=== PATIENT | female | born 1980 | race Caucasian/White ===

== ENCOUNTER 2023-02-13 17:31 | Observation (INO) | payer BC, SELFPAY ==
[2023-02-13] VITALS (21 sets, daily range): BP systolic 98–138; BP diastolic 65–83; PULSE 90–140; RESP 3–28; TEMP 36.8–39.3; O2SAT 91–99; BMI 30.4; BMI 30.8
--- NOTE | 2023-02-13 17:50 | ED_ITS ---
HPI - Nausea/Vomiting/Diarrhea General Chief complaint: Nausea/Vomiting/Diarrhea Stated complaint: HIGH FEVER Time Seen by Provider: 02/13/23 17:34 Source: patient Mode of arrival: Wheelchair Limitations: no limitations History of Present Illness HPI Narrative: 42-year-old female presents for nausea and vomiting. She's been sick for a few days. No hematemesis. She felt warm at home. She did not have a fever here. She has been able to eat or drink much. Related Data Home Medications Medication Instructions Recorded Confirmed bisoprolol 10 1 tab PO DAILY 02/13/23 02/13/23 mg-hydrochlorothiazide 6.25 mg tablet buspirone 7.5 mg tablet 7.5 mg PO DAILY 02/13/23 02/13/23 cyanocobalamin (vitamin B-12) 1,000 mcg IM .qmonth 02/13/23 02/13/23 1,000 mcg/mL injection solution desogestrel 0.15 mg-ethinyl 1 tab PO DAILY 02/13/23 02/13/23 estradiol 0.03 mg tablet (Apri) semaglutide 0.25 mg or 0.5 mg (2 0.5 mg subcut QWEEK 02/13/23 02/13/23 mg/3 mL) subcutaneous pen injector (Ozempic) sertraline 100 mg tablet 100 mg PO DAILY 02/13/23 02/13/23 Allergies Allergy/AdvReac Type Severity Reaction Status Date / Time codeine AdvReac Severe Hallucinati Verified 02/13/23 17:43 ng Review of Systems ROS Narrative A ten point review of systems is negative except as noted above. PFSH PFSH Social History Smoking status: Never smoker Exam Narrative Exam Narrative: Nurses note and vital signs reviewed and patient is not hypoxic. General: The patient appears comfortable Skin: Warm, dry, no pallor noted. There is no rash noted. Head: Normocephalic, atraumatic Eye: Normal conjunctiva, no drainage Ears, Nose, Mouth, and Throat: oral mucosa is eye. Nares patent. Cardiovascular: Regular Rate and Rhythm Respiratory: Patient is in no distress, no accessory muscle use, lungs are clear to auscultation, no wheezing, rales or rhonchi Back: non-tender GI: soft and nontender and nondistended. Musculoskeletal: The patient has no evidence of calf tenderness, no pitting edema, symmetrical pulses noted bilaterally Neurological: A&O, normal speech Psychiatric: Cooperative Constitutional Vital Signs, click to edit/add: Last Vital Signs Temp 101.4 F H 02/13/23 18:45 Pulse 127 H 02/13/23 18:40 Resp 18 02/13/23 18:40 BP 117/74 02/13/23 17:39 Pulse Ox 94 L 02/13/23 18:40 Course Vital Signs Vital signs: Vital Signs Temperature 99.7 F 02/13/23 17:39 Pulse Rate 140 H 02/13/23 17:39 Respiratory Rate 24 02/13/23 17:39 Blood Pressure 117/74 02/13/23 17:39 Temperature 101.4 F H 02/13/23 18:45 Pulse Rate 127 H 02/13/23 18:40 Respiratory Rate 18 02/13/23 18:40 Blood Pressure 117/74 02/13/23 17:39 Pulse Oximetry 94 L 02/13/23 18:40 MDM - Nausea/Vomiting/Diarrhea MDM Narrative Medical decision making narrative: Blood work is nonspecific and she's being given IV fluids and the patient is signed out to Dr. Skgags. Lab Data Attestation: I reviewed the patient's lab results. Labs: Lab Results 02/13/23 Range/Units 17:47 WBC 11.7 H (4.0-11.0) 10^3/uL RBC 5.30 (4.20-5.40) 10^6/uL Hgb 14.5 (12.0-16.0) g/dL Hct 45.1 (36.0-48.0) % MCV 85.1 (81.0-99.0) fL MCH 27.4 (26.7-34.0) pg MCHC 32.2 (29.9-35.2) g/dL RDW 13.4 (11.0-15.0) % Plt Count 355 (150-450) 10^3/uL MPV 9.3 L (9.5-13.5) fL Neut % (Auto) 81.4 H (43.0-75.0) % Lymph % (Auto) 7.2 L (20.5-60.0) % [place] % (Auto) 9.6 (1.7-12.0) % Eos % (Auto) 0.1 L (0.9-7.0) % Baso % (Auto) 0.5 (0.2-2.0) % Neut # (Auto) 9.5 H (1.4-6.5) 10^3/uL Lymph # (Auto) 0.8 L (1.2-3.8) 10^3/uL [place] # (Auto) 1.1 H (0.3-0.8) 10^3/uL Eos # (Auto) 0.0 (0.0-0.7) 10^3/uL Baso # (Auto) 0.1 (0.0-0.1) 10^3/uL Abs Immat Gran (auto) 0.14 H (0.00-0.03) 10^3/uL Imm/Tot Granulo (auto) 1.2 H (0.0-0.5) % Sodium 135 L (136-145) mmol/L Potassium 3.4 L (3.5-5.1) mmol/L Chloride 100 (98-107) mmol/L Carbon Dioxide 24.2 (21.0-32.0) mmol/L Anion Gap 14.2 BUN 10.0 (7.0-18.0) mg/dL Creatinine 0.85 (0.55-1.02) mg/dL Est GFR ( Amer) >60 (>=60) Est GFR (Non-Af Amer) >60 (>=60) BUN/Creatinine Ratio 11.8 Glucose 108 H (74-106) mg/dL Calcium 9.0 (8.5-10.1) mg/dL Serum HCG, Qual Negative (NEGATIVE) Discharge Plan Discharge Patient Disposition: Still a Patient
[2023-02-13] MEDS: 0.9 % SODIUM CHLORIDE 1,000 ML 1000 ML IV (17:59)
[2023-02-13 18:00] LABS: Hematocrit 45.1 % (36.0-48.0); Hemoglobin 14.5 g/dL (12.0-16.0); Mean Corpuscular HGB Conc 32.2 g/dL (29.9-35.2); Mean Corpuscular Hemoglobin 27.4 pg (26.7-34.0); Mean Corpuscular Volume 85.1 fL (81.0-99.0); Mean Platelet Volume 9.3 fL (9.5-13.5); Platelet Count 355 10^3/uL (150-450); Red Cell Distribution Width 13.4 % (11.0-15.0); White Blood Count 11.7 10^3/uL (4.0-11.0)
[2023-02-13 18:01] LABS: Basophils Absolute Auto 0.1 10^3/uL (0.0-0.1); Basophils Percent Auto 0.5 % (0.2-2.0); Eosinophils Percent Auto 0.1 % (0.9-7.0); Immature Granulocytes Abs Auto 0.14 10^3/uL (0.00-0.03); Immature Granulocytes Pct Auto 1.2 % (0.0-0.5); Lymphocytes Absolute Auto 0.8 10^3/uL (1.2-3.8); Lymphocytes Percent Auto 7.2 % (20.5-60.0); Monocytes Absolute Auto 1.1 10^3/uL (0.3-0.8); Monocytes Percent Auto 9.6 % (1.7-12.0); Neutrophils Absolute Auto 9.5 10^3/uL (1.4-6.5); Neutrophils Percent Auto 81.4 % (43.0-75.0)
[2023-02-13 18:09] LABS: Anion Gap 14.2; BUN Creatinine Ratio 11.8; Carbon Dioxide 24.2 mmol/L (21.0-32.0); Chloride 100 mmol/L (98-107); Estimated GFR (African America >60 (>=60); Estimated GFR (Non-African Ame >60 (>=60); Glucose 108 mg/dL (74-106); Potassium 3.4 mmol/L (3.5-5.1); Sodium 135 mmol/L (136-145)
[2023-02-13 18:10] LABS: HCG Qualitative NEGATIVE (NEGATIVE)
[2023-02-13] MEDS: ACETAMINOPHEN 325 MG TABLET 650 MG PO (19:09)
[2023-02-13] MEDS: IBUPROFEN 600 MG TABLET PO (19:09)
[2023-02-13] MEDS: 0.9 % SODIUM CHLORIDE 1,000 ML 999 ML IV ×2 (19:10→20:20)
--- NOTE | 2023-02-13 20:04 | CT_ITS ---
The [address] [address] Patient Name: ALFONSO WEBER MRN: [id number] date: 1980 Sex: F Assigned Patient Location: ER Current Patient Location: ER Accession/Order Number: [id number] Exam Date: 02/13/2023 20:30 Report Date: 02/13/2023 21:15 At the request of: BENSON REID Procedure: CT abdomen pelvis wo con EXAM: CT abdomen pelvis wo con TECHNIQUE: Axial CT images were obtained of the abdomen and pelvis without intravenous contrast. Sagittal and coronal reformatted images were also obtained. Dose reduction techniques were achieved by using automated exposure control and/or adjustment of mA and/or kV according to patient size and/or use of iterative reconstruction technique. HISTORY: right CVA pain COMPARISON: 12/26/2020 FINDINGS: Lower chest: Mild bibasilar patchy subsegmental atelectasis. Liver: The liver is homogeneous with normal contours and normal size. Gallbladder: Status post cholecystectomy. No significant biliary dilatation. Pancreas: The pancreas is homogeneous without evidence for mass lesion or inflammation. Spleen: The spleen is unremarkable without evidence for mass lesion. Adrenal glands: The adrenal glands are unremarkable Kidneys and bladder: 2 mm nonobstructing stone upper pole left kidney. Unremarkable unenhanced right kidney. The ureters demonstrate normal caliber. The urinary bladder is unremarkable. GI Tract: Stomach is unremarkable. Visualized small bowel is unremarkable without evidence for obstruction or active inflammation. The appendix is unremarkable.The visualized portion of the large bowel is unremarkable. Reproductive: Unremarkable Lymph nodes: No retroperitoneal or abdominal lymphadenopathy. Vascular: The aorta is not dilated. Peritoneum: No free intraperitoneal air or fluid. No acute inflammation. Abdominal wall: Unremarkable without acute abnormality. CT/CT abdomen pelvis wo con IMPRESSION: No acute abdominal pathology. No acute inflammatory process. No obstructing urinary tract stone. No evidence for bowel obstruction. Electronically authenticated by: ROLY SHETTY Date: 02/13/2023 21:15
[2023-02-13 20:28] LABS: Bilirubin Urine NEGATIVE (NEGATIVE); Blood Urine NEGATIVE (NEGATIVE); Clarity Urine CLEAR (CLEAR); Color Urine LT. YELLOW (YELLOW); Glucose Urine UA NEGATIVE (NEGATIVE); Ketones Urine 15 mg/dL (NEGATIVE); Leukocyte Esterase Urine NEGATIVE (NEGATIVE); Nitrite Urine NEGATIVE (NEGATIVE); Protein Urine NEGATIVE (NEG/TRACE)
[2023-02-13 20:31] LABS: Urine Microscopic Indicated NO
[2023-02-13 20:33] LABS: Lactate/Lactic Acid 0.7 mmol/L (0.4-2.0)
[2023-02-13 23:24] LABS: SARS-CoV-2 Ag NEGATIVE (NEGATIVE)
[2023-02-14] MEDS: ONDANSETRON PF 4 MG/2 ML VIAL IV ×2 (00:26→10:03)
--- NOTE | 2023-02-14 02:22 | P.PN_ITS ---
Progress Note: Subjective Subjective Interval history: The patient is a 42-year-old female with a history of hypertension who was in her usual state of health until 24 to 36 hours ago when she started developing intractable nausea and vomiting. Her and daughter has had similar complaints. She has not had any recent antibiotic use or any recent hospitalizations. She did not eat anything out of the ordinary or travel to any endemic areas. She presented to the ED and was noted to have a temperature of [address] abdomen was negative. She was given antiemetics and IV fluids and is being admitted for further evaluation. Exam Narrative Exam Narrative: General : Alert and oriented x3 HEENT : Extraocular movements intact, pupils equal round and reactive to light and accommodation Neck: Supple, no JVD Chest: Clear to auscultation bilaterally, no wheezes Heart: Regular rate and rhythm, S1 and S2 heard Abdomen: Soft nontender nondistended. Extremities: No clubbing cyanosis or edema Neurologically: Moving all 4 extremities Skin: No rashes Constitutional Vital Signs, click to edit/add: Last Vital Signs Temp 98.2 F 02/13/23 23:28 Pulse 95 H 02/13/23 23:28 Resp 22 02/13/23 23:28 BP 98/65 02/13/23 23:28 Pulse Ox 94 L 02/13/23 23:28 O2 Del Method Room Air 02/13/23 23:28 Progress Note: Objective Labs Labs: Short CBC 02/13/23 Range/Units 17:47 WBC 11.7 H (4.0-11.0) 10^3/uL Hgb 14.5 (12.0-16.0) g/dL Hct 45.1 (36.0-48.0) % Plt Count 355 (150-450) 10^3/uL BMP 02/13/23 17:47 Sodium 135 L Potassium 3.4 L Chloride 100 Carbon Dioxide 24.2 BUN 10.0 Creatinine 0.85 Glucose 108 H Calcium 9.0 Urine 02/13/23 Range/Units 20:22 Urine Color Lt. yellow (YELLOW) Urine Clarity Clear (CLEAR) Urine pH 7.0 (5.0-9.0) Ur Specific [place] 1.010 (1.005-1.025) Urine Protein Negative (NEG/TRACE) mg/dL Urine Glucose (UA) Negative (NEGATIVE) mg/dL Progress Note: A&P Assessment and Plan (1) Nausea and vomiting: Plan The patient is a 42-year-old female with above medical problems, presenting with intractable nausea and vomiting. Intractable nausea and vomiting -Provide supportive care -IV fluids -Antiemetics -PPI Diarrhea -Check C. difficile Hypokalemia -Add potassium and IV fluids DVT Prophylaxis -Lovenox, SCDs Medication review -Medication reconciliation form completed Goals of care -Full code Communications -Discussed with the emergency room physician -Discussed with the bedside nurse -Patient updated of plan of care, all questions answered to their satisfaction Disposition -Home when medically stable Telemedicine clause -As the provider of this telehealth evaluation, requested by the patient's evaluating physician, I attest that I introduced myself to the patient, provided my credentials and determined that telemedicine via a real-time, two-way interactive audio and video platform is an appropriate and effective means of providing this service. -I reviewed the patient's chart and had a discussion with the member of the patient's treatment team. -The patient and I mutually agreed with continuation of this evaluation via telemedicine. The patient consented for the telemedicine evaluation. -This virtual encounter was taken place from [place], [place]. The encounter was approximately 35 minutes. The nurse was present during the entire time of the encounter and was able to remove the stethoscope and appropriate directions. The patient was evaluated at [facility] Telemedicine Attestation Telemedicine Attestation I conducted this encounter from [] via secure live, [id number] video conference with the patient, located at [facility] with []. Prior to the interview, the risks and benefits of telemedicine were discussed with the patient and verbal consent was obtained.
[2023-02-14] MEDS: PANTOPRAZOLE SODIUM 40 MG VIAL IV (02:41)
[2023-02-14] MEDS: POTASSIUM CHLORIDE-0.45% NACL 1,000 ML 100 MEQ IV (02:41)
[2023-02-14] MEDS: ENOXAPARIN SODIUM 40 MG/0.4 ML SYRINGE SUBQ (02:41)
[2023-02-14] MEDS: ACETAMINOPHEN 325 MG TABLET 650 MG PO ×2 (02:47→08:53)
[2023-02-14 02:50] VITALS: TEMP 37.2
[2023-02-14 03:19] LABS: Adenovirus F 40/41 NOT DETECTED (NOT DETECTE); Astrovirus NOT DETECTED (NOT DETECTE); Campylobacter NOT DETECTED (NOT DETECTE); Cryptosporidium NOT DETECTED (NOT DETECTE); Cyclospora cayetanensis NOT DETECTED (NOT DETECTE); Entamoeba histolytica NOT DETECTED (NOT DETECTE); Enteroaggregative E.coli NOT DETECTED (NOT DETECTE); Enteropathogenic E.coli NOT DETECTED (NOT DETECTE); Enterotoxigenic E. coli NOT DETECTED (NOT DETECTE); Giardia lamblia NOT DETECTED (NOT DETECTE); Plesiomonas shigelloides NOT DETECTED (NOT DETECTE); Rotavirus A NOT DETECTED (NOT DETECTE); Salmonella NOT DETECTED (NOT DETECTE); Sapovirus NOT DETECTED (NOT DETECTE); Shiga-like toxin-producing E.C NOT DETECTED (NOT DETECTE); Shigella/Enteroinvasive E.coli NOT DETECTED (NOT DETECTE); Vibrio NOT DETECTED (NOT DETECTE); Vibrio cholerae NOT DETECTED (NOT DETECTE); Yersinia enterocolitica NOT DETECTED (NOT DETECTE)
[2023-02-14 05:12] LABS: Norovirus GI/GII DETECTED (NOT DETECTE)
[2023-02-14 06:00] VITALS: BP 112/65; PULSE 98; RESP 18; TEMP 37.2; O2SAT 99
[2023-02-14 07:53] VITALS: BP 131/74; PULSE 90; RESP 16; TEMP 37.4; O2SAT 91
[2023-02-14] MEDS: SERTRALINE HCL 100 MG TABLET PO (08:51)
[2023-02-14] MEDS: BUSPIRONE HCL 15 MG TABLET 7.5 MG PO (08:51)
--- NOTE | 2023-02-14 10:35 | PM.HP ---
H&P: HPI History of Present Illness Chief complaint: HIGH FEVER GASTRITIS Narrative: HPI and hospital course 42 y o female presents with 2-3 days hx of fever, intractable nausea, vomiting and inability to keep anything down. She had one or two episodes of watery diarrhea too. She reports her was also sick but he did not require an ED visit. Patient was admitted overnight for intractable nausea, vomiting, started on IV hydration, anti emetics and feels slightly better this am. She was able to keep liquid/water down. Reports her throat is hurting from acid refux and vomiting. She reports very mild abdominal discomfort. W/u revealed norovirus in her stool. No sig pathology/finding on CT abd/pelvis. Educated patient on her current pathology. Given her age, lack of risk factors, I feel that she will continue to improve. Asked patient to slowly advance her diet. Ensure adequate hydration with oral rehydration solutions. Stable for discharge on PO zofran, Protonix. Asked patient to hold Ozempic for 4 weeks phillip since its not for T2 DM and prescribed for weight loss. Admission Diagnosis Intractable nausea/vomiting due to viral gastroenteritis Obesity Viral gastroenteritis due to norovirus Depression with anxiety Discharge diagnosis as above Discharge status stable. Review of Systems ROS Status of ROS 10 or more systems reviewed and unremarkable except as noted in history and below [facility] Medical History (Updated 02/14/23 @ 10:42 by Shaikh Dedrick MD) Depression with anxiety ?F41.8 - Other specified anxiety disorders (ICD-10) Pulmonary embolism ?I26.99 - Other pulmonary embolism without acute cor pulmonale (ICD-10) Hypertension ?I10 - Essential (primary) hypertension (ICD-10) Pneumonia ?J18.9 - Pneumonia, unspecified organism (ICD-10) Cholelithiasis ?K80.20 - Calculus of gallbladder without cholecystitis without obstruction (ICD-10) Family History Mother Family history of diabetes mellitus Family history of hypertension Social History Within the past year, how often did you have a drink containing alcohol: never Within the past year, how often did you have six or more drinks on one occasion: never Score interpretation: A score less than 3 is consistent with normal alcohol consumption. Smoking status: Never smoker Second hand tobacco smoke exposure: No Non-prescribed substance use: denies use Previous occupational history: cost accountant Known occupational exposures/hazards: No Highest level of school completed/degree received: some college, no degree Do you want help with school or training: No Are you now , , , , never or living with a partner: In a typical week, how many times do you talk on the telephone with family, friends, or neighbors: 3 or more times per week How often do you get together with friends or relatives: 3 or more times per week How often do you attend oriental orthodox or protestant services: never Do you belong to any clubs or organizations such as oriental orthodox groups unions, [employer] or athletic groups, or school groups: no Total score: 2 Score interpretation: A score of greater than or equal to 2 indicates the lowest level of social isolation. Little interest or pleasure in doing things: not at all Feeling down, depressed, or hopeless: not at all Feel stressed/tense/nervous/anxious/difficulty sleeping: to some extent Life stressors: unknown source of stress Due to disability, difficulty making decisions: No Do you think of yourself as: straight/heterosexual Gender Identity: female Meds Home Medications and Allergies Home Medications Medication Instructions Recorded Confirmed Type bisoprolol 10 1 tab PO DAILY 02/13/23 02/13/23 History mg-hydrochlorothiazide 6.25 mg tablet buspirone 7.5 mg tablet 7.5 mg PO DAILY 02/13/23 02/13/23 History cyanocobalamin (vitamin B-12) 1,000 mcg IM .qmonth 02/13/23 02/13/23 History 1,000 mcg/mL injection solution desogestrel 0.15 mg-ethinyl 1 tab PO DAILY 02/13/23 02/13/23 History estradiol 0.03 mg tablet (Apri) semaglutide 0.25 mg or 0.5 mg (2 0.5 mg subcut QWEEK 02/13/23 02/13/23 History mg/3 mL) subcutaneous pen injector (Ozempic) sertraline 100 mg tablet 100 mg PO DAILY 02/13/23 02/13/23 History Allergies Allergy/AdvReac Type Severity Reaction Status Date / Time codeine AdvReac Severe Hallucinati Verified 02/13/23 17:43 ng Exam Constitutional Vital Signs, click to edit/add: Last Vital Signs Temp 99.3 F 02/14/23 07:53 Pulse 90 02/14/23 07:53 Resp 16 02/14/23 07:53 BP 131/74 02/14/23 07:53 Pulse Ox 91 L 02/14/23 07:53 O2 Del Method Room Air 02/14/23 07:53 Documenting provider has reviewed patient's vital signs: yes Common normals: no apparent distress and oriented x3 General appearance: cooperative Nutritional appearance: obese HENMT Common normals: normocephalic and head/scalp atraumatic Head and scalp: normocephalic and atraumatic Eye Common normals: conjunctivae normal and no scleral icterus Conjunctiva: conjunctiva(e) normal Respiratory Common normals: normal respiratory effort and clear to auscultation bilaterally Effort & inspection: able to speak in complete sentences Auscultation: clear to auscultation bilaterally Cardio Common normals: regular rate, S1 normal heart sound and S2 normal heart sound Rate: regular rate Heart sounds: S1 normal and S2 normal GI Common normals: Normal to inspection, nondistended, normoactive bowel sounds present, soft to palpation, non-tender and no hepatosplenomegaly Palpation: soft and no hepatosplenomegaly Extremity Common normals: no clubbing, cyanosis or edema Neuro Common normals: oriented x3, moves all extremities and no focal motor deficits Psych Common normals: mental status grossly normal, denies hallucinations, denies homicidal ideation and denies suicidal ideation Results Labs Labs: Short CBC 02/13/23 Range/Units 17:47 WBC 11.7 H (4.0-11.0) 10^3/uL Hgb 14.5 (12.0-16.0) g/dL Hct 45.1 (36.0-48.0) % Plt Count 355 (150-450) 10^3/uL BMP 02/13/23 17:47 Sodium 135 L Potassium 3.4 L Chloride 100 Carbon Dioxide 24.2 BUN 10.0 Creatinine 0.85 Glucose 108 H Calcium 9.0 Urine 02/13/23 Range/Units 20:22 Urine Color Lt. yellow (YELLOW) Urine Clarity Clear (CLEAR) Urine pH 7.0 (5.0-9.0) Ur Specific [place] 1.010 (1.005-1.025) Urine Protein Negative (NEG/TRACE) mg/dL Urine Glucose (UA) Negative (NEGATIVE) mg/dL Assessment and Plan Assessment and Plan (1) Viral gastroenteritis due to [place] virus: (2) Intractable nausea and vomiting: (3) Hypertension: Qualifiers: Hypertension type: primary hypertension Qualified Code(s): I10 - Essential (primary) hypertension (4) Depression with anxiety: Plan Symptoms improved with IV hydration and anti emetics. Toletated Liquid diet. Stable for discharge on zofran and prootnix. Patient educated on oral hydration, eating soft, easily digestible foods until she is better. Hold ozempic for 4 weeks.
--- NOTE | 2023-02-14 10:48 | CM.NOTE ---
Rounds made with Dr. Tse. Encouraged fluids and plan is for discharge today if able to keep fluids down. Currently no discharge needs.
[2023-02-14 12:03] LABS: SARS-CoV-2 NAA NOT DETECTED (NOT DETECTE)
== END 2023-02-14 12:39 | disposition home or self-care (01) ==
LOC: ER 19:52 → MS 23:20
PROVIDERS: Emergency Medicine; Internal Medicine; Admitting Provider Internal Medicine; Emergency Provider Internal Medicine; Visit Provider Internal Medicine
DX: A08.11 Acute gastroenteropathy due to Norwalk agent (principal); E66.9 Obesity, unspecified; F32.A Depression, unspecified; F41.9 Anxiety disorder, unspecified; E87.6 Hypokalemia; I10 Essential (primary) hypertension; R50.9 Fever, unspecified; Z68.30 Body mass index [BMI] 30.0-30.9, adult; Z20.822 Contact with and (suspected) exposure to COVID-19; Z79.899 Other long term (current) drug therapy; Z86.711 Personal history of pulmonary embolism; Z87.01 Personal history of pneumonia (recurrent)
CPT/HCPCS: 36415; 74176; 80048; 81003; 83605; 84703; 85025; 87493; 87507; 87635; 87811; 96361; 96365; 96366; 96372; 96375; 96376; 99285; G0378; Q3014

== ENCOUNTER 2023-12-09 10:28 | Outpatient (OUT) | payer BC, SELFPAY ==
--- NOTE | 2023-12-09 | XR_ITS ---
The [address] [address] Patient Name: ALFONSO WEBER MRN: [id number] date: 1980 Sex: F Assigned Patient Location: [facility] Current Patient Location: Accession/Order Number: [id number] Exam Date: 12/09/2023 10:38 Report Date: 12/11/2023 13:55 At the request of: REJI FLORES Procedure: XR chest 2V EXAMINATION: XR chest 2V HISTORY: cough, sob COMPARISON: 11/30/2020 TECHNIQUE: PA and lateral FINDINGS: LUNGS: The right lung is clear. Mild left basilar infiltrate obscuring the lateral left hemidiaphragm, stable from 2020 likely representing chronic scarring VASCULATURE: No increased pulmonary vasculature. PLEURA: No pneumothorax, effusion, or pleural thickening. CARDIAC: No cardiomegaly or cardiac silhouette abnormality. MEDIASTINUM: No visible mass or adenopathy. BONES: No fracture or visible bone lesion. OTHER: Negative. XR/XR chest 2V IMPRESSION: No acute cardiopulmonary process Electronically authenticated by: DONNA HYMAN Date: 12/11/2023 13:55
--- OUTSIDE RECORDS SUMMARY | 2023-12-09 10:33 | XMS_ITS | CCD ---
Author Organization [facility] Team Providers Care Senior Supplier Quality Engineer Name Role Phone SON, DR RAKESH Mitchell Consulting Unavailable CLINE, DR RAKESH Mitchell Attending Unavailable CLINE, DR RAKESH Mitchell Primary Care Unavailable CLINE, DR RAKESH Mitchell Admitting Unavailable WEST, DR DONNA Driscoll Consulting Unavailable CLINE, DR RAKESH Mitchell Attending Unavailable CLINE, DR RAKESH Mitchell Primary Care Unavailable CLINE, DR RAKESH Mitchell Admitting Unavailable CLINE, DR RAKESH Mitchell Consulting Unavailable CLINE, DR RAKESH Mitchell Primary Care Unavailable CLINE, DR RAKESH Mitchell Attending Unavailable CLINE, DR RAKESH Mitchell Admitting Unavailable CLINE, DR RAKESH Mitchell Consulting Unavailable WEST, DR DONNA Driscoll Consulting Unavailable CLINE, DR RAKESH Mitchell Attending Unavailable CLINE, DR RAKESH Mitchell Admitting Unavailable CLINE, DR RAKESH Mitchell Primary Care Unavailable CLINE, DR RAKESH Mitchell Consulting Unavailable CLINE, DR RAKESH Mitchell Consulting Unavailable CLINE, DR RAKESH Mitchell Attending Unavailable CLINE, DR RAKESH Mitchell Admitting Unavailable CLINE, DR RAKESH Mitchell Primary Care Unavailable [place] Consulting Unavailable CLINE, DR RAKESH Mitchell Attending Unavailable CLINE, DR RAKESH Mitchell Admitting Unavailable WESTON, DR FELIPE Storey Consulting Unavailable SON, DR RAKESH Mitchell Primary Care Unavailable CLINE, DR RAKESH Mitchell Consulting Unavailable WIECEK, DR MARIMAR Stacy Consulting Unavailable ZIEBER, DR LEIDY Storey Consulting Unavailable AGUBOSIM, ANTONIO Consulting Unavailable Said, El Consulting Unavailable DORKONICOLE LEONARDO Consulting Unavailable SNO, DR RAKESH Mitchell Consulting Unavailable SON, DR RAKESH Mitchell Attending Unavailable CLINE, DR RAKESH Mitchell Admitting Unavailable CLINE, DR RAKESH Mitchell Primary Care Unavailable WEST, DR DONNA Driscoll Consulting Unavailable CLINE, DR RAKESH Mitchell Consulting Unavailable SON, DR RAKESH Mitchell Attending Unavailable CLINE, DR RAKESH Mitchell Admitting Unavailable SON, DR RAKESH Mitchell Primary Care Unavailable Melissa Lewis Primary Care Physician [phone] Debbie, TOBIN Adhikari Attending Unavailable Debbie, BEET WORKER Melissa L Admitting Unavailable Debbie, BEET WORKER Melissa L Admitting Unavailable Debbie, BEET WORKER Melissa L Attending Unavailable Letitia Morrissey Attending Unavailable Debbie, BEET WORKER Melissa L Referring Unavailable STEPHANIE DEL CID Admitting Unavailabl e DEL CIDSTEPHANIE Goel Attending Unavailabl e Debbie, BEET WORKER Melissa L Admitting Unavailable Debbie, BEET WORKER Melissa L Attending Unavailable Letitia Morrissey Admitting Unavailable Demboscuauhtemoc, Letitia Acosta Attending Unavailable Debbie, BEET WORKER Melissa L Referring Unavailable Hector, MS, RDN, LD Ratna K Attending Unav ailable Ghanshyam, Letitia Acosta Attending Unavailable STEPHANIE DEL CID Attending Unavailabl e Debbie, BEET WORKER Melissa L Attending Unavailable Debbie, BEET WORKER Melissa L Attending Unavailable Antonio Giles Attending Unavailable Debbie, BEET WORKER Melissa L Attending Unavailable Debbie, BEET WORKER Melissa L Attending Unavailable Debbie, BEET WORKER Melissa L Attending Unavailable Debbie, BEET WORKER Melissa L Attending Unavailable Debbie, BEET WORKER Melissa L Attending Unavailable Debbie, BEET WORKER Melissa L Attending Unavailable Debbie, BEET WORKER Melissa L Attending Unavailable Riki Villa Attending Unavailable Lorraine Benavides Attending Unavailable Debbie, BEET WORKER Melissa L Attending Unavailable Riki Villa Admitting Unavailable Riki Villa Attending Unavailable Debbie, BEET WORKER Melissa L Admitting Unavailable Debbie, BEET WORKER Melissa L Attending Unavailable Allergies Allergy Classification Reported Allergen(s) Allergy Type Date of Onset Reaction(s) Facility (13 sources) Acetaminophen / Codeine; Translations: [acetaminophen-c odeine] Drug Allergy Hallucinations (finding) [facility] (2 sources) Codeine / guaiFENesin; Translations: [Cheracol with Codeine] Drug Allergy [facility] Repository (2 sources) No Known Medication Allergies; Translations: [No Known Medication Allergies] Propensity to adverse reactions (disorder) [facility] Repository Medications Current Medications Medication Drug Class(es) Dates Sig (Normalized) Sig (Original) 0.25 MG, 0.5 MG Dose 3 ML semaglutide 0.68 MG/ML Pen Injector [Ozempic] (7 sources) Start: 09-23-2024 Ozempic 2 mg/3 mL (0.25 mg or 0.5 mg dose) subcutaneous solution 0.25 mg, SubCutaneous, qWeek, # 4 EA, Refills(s) 1, Pharmacy: [facility] [id number] [facility], 160, cm, 11/10/23 14:00:00 EDT, Height/Length Dosing, 79.1, kg, 11/10/23 14:00:00 EDT, Weight Dosing Start Date: 11/13/23 Status: Ordered Start: 01-18-2023 inject 0.5 mg by sub cutaneous injection every week Ozempic 2 mg/3 mL (0.25 mg or 0.5 mg dose) subcutaneous solution 0.5 mg, SubCutaneous, qWeek, # 1 EA, Refills(s) 1, Pharmacy: [facility] [id number] [facility], 160, cm, 01/18/23 17:10:00 EST, Height/Length Dosing, 92.2, kg, 01/18/23 17:10:00 EST, Weight Dosing Start Date: 01/18/23 Status: Ordered Start: 12-09-2022 Ozempic 2 mg/3 mL (0.25 mg or 0.5 mg dose) subcutaneous solution 0.25 mg, SubCutaneous, qWeek, # 1 EA, Refills(s) 1, Pharmacy: [facility] [id number] [facility], 160, cm, 12/09/22 14:00:00 EDT, Height/Length Dosing, 76, kg, 12/09/22 14:00:00 EDT, Weight Dosing Start Date: 12/09/22 Status: Ordered Albuterol (Eqv-ProAir HFA) 90 mcg/inh inhalation aerosol (1 source) Start: 11-29-2023 take 2 puff(s) by inhalation every six hours Albuterol (Eqv-ProAir HFA) 90 mcg/inh inhalation aerosol 2 puff(s), Inhalation, q6hr, 8.5 gm, Refill(s) 0, [id number], 160, cm, 11/21/23 17:41:00 EDT, Height/Length Dosing, 79, kg, 11/21/23 17:41:00 EDT, Weight Dosing Start Date: 11/29/23 Status: Ordered azithromycin 250 mg oral tablet (2 sources) Macrolide Antimicrobial Start: 11-29-2023 End: 12-04-2023 azithromycin 250 mg Tab = 1 packet(s), Oral, As Directed, as directed on package labeling, X 5 day(s), # 6 tab(s), Refills(s) 0, Pharmacy: [facility] [id number] [facility], 160, cm, 11/21/23 17:41:00 EDT, Height/Length Dosing, 79, kg, 11/21/23 17:41:00 EDT, Weight Dosing Start Date: 11/29/23 Stop Date: 12/04/23 Status: Ordered Start: 02-15-2023 End: 02-20-2023 azithromycin 250 mg Tab = 1 packet(s), Oral, As Directed, as directed on package labeling, X 5 day(s), # 6 tab(s), Refills(s) 0, Pharmacy: [facility] [id number] [facility], 160, cm, 02/15/23 17:07:00 EST, Height/Length Dosing, 75, kg, 02/15/23 17:07:00 EST, Weight Dosing Start Date: 02/15/23 Stop Date: 02/20/23 Status: Ordered benzonatate 100 mg oral capsule (2 sources) Non-narcotic Antitussive Start: 11-21-2023 End: 11-28-2023 take 1 capsule by mouth three times daily Tessalon 100 mg Cap 100 mg = 1 cap(s), Oral, TID, X 7 day(s), # 21 cap(s), Refills(s) 0, Pharmacy: [facility] [id number] [facility], 160, cm, 11/21/23 17:41:00 EDT, Height/Length Dosing, 79, kg, 11/21/23 17:41:00 EDT, Weight Dosing Start Date: 11/21/23 Stop Date: 11/28/23 Status: Ordered bisoprolol fumarate 10 mg / hydroCHLOROthiazide 6.25 mg oral tablet (9 sources) Thiazide Diuretic, beta-Adrenergic Rod Start: 07-26-2023 take 1 tablet by mouth once daily bisoprolol-hydroc hlorothiazide 10 mg-6.25 mg Tab 1 tab(s), Oral, Daily, 90 tab(s), Refill(s) 3, [facility] [id number] [facility], 160, cm, 06/14/23 17:02:00 EDT, Height/Length Dosing, 76.2, kg, 06/14/23 17:02:00 EDT, Weight Dosing Start Date: 07/26/23 Status: Ordered Start: 10-21-2022 take 1 tablet by andrez th once daily in the morning bisoprolol-hydrochlorothiazide 10 mg-6.2 5 mg Tab Refill(s) 0, 90 EA, TAKE 1 TABLET BY MOUTH EVERY DAY IN THE MORNING Start Date: 10/21/22 Status: Ordered Start: 05-23-2022 End: 08-21-2022 take 1 tablet by mouth once daily bisoprolol-hydrochlorothiazide 10 mg-6.2 5 mg Tab 1 tab(s), Oral, Daily for 90 day(s), 90 tab(s), Refill(s) 0 Start Date: 05/23/22 Stop Date: 08/21/22 Status: Ordered Blood glucose monitor (8 sources) Start: 10-21-2022 Blood glucose monitor Blood glucose monitor, See Instructions, 1 EA, 0, Check blood sugar 3 times per day, [facility] [id number] [facility], Supply, 160, cm, 10/21/22 13:55:00 EDT, Height/Length Dosing, 73.7, kg, 10/21/22 13:55:00 EDT, Weight Dosing Start Date: 10/21/22 Status: Ordered busPIRone hydrochloride 7.5 mg oral tablet (8 sources) Start: 10-17-2022 take 1 tablet by mouth once daily as needed for anxiety busPIRone 7.5 mg oral tablet 7.5 mg = 1 tab(s), Oral, Daily, PRN Anxiety, as needed for anxiety, # 90 tab(s), Refills(s) 3, Pharmacy: [facility] [id number], 160, cm, 09/23/22 14:47:00 EDT, Height/Length Dosing, 74.5, kg, 09/23/22 14:47:00 EDT, Weight Dosing Start Date: 10/17/22 Status: Ordered {21 (Desogestrel 0.15 MG / Ethinyl Estradiol 0.03 MG Oral Tablet) / 7 (Inert Ingredients 1 MG Oral Tablet) } Pack [Apri 28 Day] (6 sources) Progestin, Estrogen Start: 08-26-2022 take 1 tablet by mouth once daily Apri oral tablet 1 tab(s), Oral, Daily, 84 tab(s), Refill(s) 3, [id number], 160, cm, 08/26/22 13:04:00 EDT, Height/Length Dosing, 75.8, kg, 08/26/22 13:04:00 EDT, Weight Dosing Start Date: 08/26/22 Status: Ordered ergocalciferol 1.25 mg oral capsule (10 sources) Provitamin D2 Compound Start: 08-07-2023 ergocalciferol 50,000 intl units Cap 50,000 International_Unit = 1 cap(s), Oral, 2x/Wk, # 24 cap(s), Refills(s) 4, Pharmacy: [facility] [id number] [facility], 160, cm, 06/14/23 17:02:00 EDT, Height/Length Dosing, 76.2, kg, 06/14/23 17:02:00 EDT, Weight Dosing Start Date: 08/07/23 Status: Ordered Start: 08-26-2022 ergocalciferol 50,000 intl units Cap 50,000 International_Unit = 1 cap(s), Oral, 2x/Wk, # 24 cap(s), Refills(s) 2, Pharmacy: [facility] [id number], 160, cm, 08/26/22 13:04:00 EDT, Height/Length Dosing, 75.8, kg, 08/26/22 13:04:00 EDT, Weight Dosing Start Date: 08/26/22 Status: Ordered fluticasone propionate 0.05 mg/actuat metered dose nasal spray (7 sources) Corticosteroid Start: 06-20-2022 take 2 spray(s) nasal route once daily Flonase 0.05 mg/inh [place] 2 spray(s), Nasal, Daily, 16 gram, Refill(s) 3, each nostril, [facility] [id number] [facility], 160, cm, 05/23/22 13:20:00 EDT, Height/Length Dosing, 76.4, kg, 05/23/22 13:20:00 EDT, Weight Dosing Start Date: 06/20/22 Status: Ordered Freestyle Zonia 2 (8 sources) Start: 05-16-2023 Freestyle Libr e 2 Freestyle Zonia 2, See Instructions, 6 EA, 0, Check blood sugars 4 times per day, [facility] [id number], Supply, 160, cm, 03/22/23 17:48:00 EST, Height/Length Dosing, 76.8, kg, 03/22/23 17:48:00 EST, Weight Dosing Start Date: 05/16/23 Status: Ordered Start: 10-28-2022 Freestyle Libr e 2 Freestyle Zonia 2, See Instructions, 1 EA, 1, Check blood sugars 4 times per day, [facility] [id number] [facility], Supply, 160, cm, 10/21/22 13:55:00 EDT, Height/Length Dosing, 73.7, kg, 10/21/22 13:55:00 EDT, Weight Dosing Start Date: 10/28/22 Status: Ordered Freestyle Zonia 2 Sensors (8 sources) Start: 10-28-2022 Freestyle Libr e 2 Sensors Freestyle Zonia 2 Sensors, See Instructions, 2 EA, 5, Use to montior bs, [facility] [address], Supply, 160, cm, 10/21/22 13:55:00 EDT, Height/Length Dosing, 73.7, kg, 10/21/22 13:55:00 EDT, Weight Dosing Start Date: 10/28/22 Status: Ordered Freestyle Zonia 3 Flash Glucose Monitoring 14 Day System (Sensor) (1 source) Start: 11-24-2023 Freestyle Libr e 3 Flash Glucose Monitoring 14 Day System (Sensor) Freestyle Zonia 3 Flash Glucose Monitoring 14 Day System (Sensor), See Instructions, 6 EA, 1, Freestyle Zonia 3 Flash Glucose Monitoring 14 Day System (Sensor). Replace sensor every 14 days., [facility] [id number], Supply, 160, cm, 11/21/23 17:41:00 EDT, Height/Length Dosing, 79, kg, 11/21/23 17:41:00 EDT, Weight Dosing Start Date: 11/24/23 Status: Ordered Freestyle Zonia 3 sensors (7 sources) Start: 11-24-2023 Freestyle Libr e 3 sensors Freestyle Zonia 3 sensors, See Instructions, 6 EA, 3, change every 14 days and as needed, [id number], Supply, 160, cm, 11/21/23 17:41:00 EDT, Height/Length Dosing, 79, kg, 11/21/23 17:41:00 EDT, Weight Dosing Start Date: 11/24/23 Status: Ordered Start: 03-22-2023 Freestyle Libr e 3 sensors Freestyle Zonia 3 sensors, See Instructions, 2 kit(s), 6, change sensor every two weeks and as needed, [facility] [id number] [facility], Supply, 160, cm, 03/22/23 17:48:00 EST, Height/Length Dosing, 76.8, kg, 03/22/23 17:48:00 EST, Weight Dosing Start Date: 03/22/23 Status: Ordered Start: 01-18-2023 Freestyle Libr e 3 sensors Freestyle Zonia 3 sensors, See Instructions, 1 kit(s), 1, change sensor as needed, [facility] [id number], Supply, 160, cm, 01/18/23 17:10:00 EST, Height/Length Dosing, 92.2, kg, 01/18/23 17:10:00 EST, Weight Dosing Start Date: 01/18/23 Status: Ordered metFORMIN hydrochloride 500 mg oral tablet (4 sources) Biguanide Start: 12-21-2022 take 1 tablet by mouth twice daily metformin 500 mg Tab 500 mg = 1 tab(s), Oral, BID, # 180 tab(s), Refills(s) 4, Pharmacy: [facility] [id number] [facility], 160, cm, 12/15/22 15:37:00 EDT, Height/Length Dosing, 76.6, kg, 12/15/22 15:37:00 EDT, Weight Dosing Start Date: 12/21/22 Status: Ordered Start: 11-16-2022 take 1 tablet by andrez th twice daily metformin 500 mg Tab 500 mg = 1 tab(s), Oral, BID, # 60 tab(s), Refills(s) 0, Pharmacy: [facility] [id number] [facility], 160, cm, 11/11/22 15:01:00 EDT, Height/Length Dosing, 73.5, kg, 11/11/22 15:01:00 EDT, Weight Dosing Start Date: 11/16/22 Status: Ordered Misc DME Prescription (1 source) Start: 11-24-2023 needles for semaglutide pen (3 sources) Start: 01-18-2023 needles for semaglutide pen needles for semaglutide pen, See Instructions, 10 EA, 1, inject 0.50mg weekly, [facility], [facility], 160, cm, 01/18/23 17:10:00 EST, Height/Length Dosing, 92.2, kg, 01/18/23 17:10:00 EST, Weight Dosing Start Date: 01/18/23 Status: Ordered nitrofurantoin, macrocrystals 25 mg / nitrofurantoin, monohydrate 75 mg oral capsule (2 sources) Nitrofuran Antibacterial Start: 03-16-2023 End: 03-23-2023 take 1 capsule by mouth twice daily Macrobid 100 mg Cap 100 mg = 1 cap(s), Oral, BID, X 7 day(s), # 14 cap(s), Refills(s) 0, Pharmacy: [facility] [id number] [facility], 160, cm, 02/15/23 17:07:00 EST, Height/Length Dosing, 75, kg, 02/15/23 17:07:00 EST, Weight Dosing Start Date: 03/16/23 Stop Date: 03/23/23 Status: Ordered nystatin 420009 unt/ml oral suspension (1 source) Polyene Antifungal Start: 11-30-2022 take 4 mL by mouth every six hours nystatin 100,000 units/mL Oral Susp See Instructions, TAKE 4 ML BY MOUTH EVERY 6 HOURS FOR 10 DAYS - RETAIN IN MOUTH LONG POSSIBLE BEFORE SWALLOWING, # 160 mL, Refills(s) 0, Pharmacy: [facility] [id number] [facility], 160, cm, 11/28/22 16:45:00 EDT, Height/Length Dosing, 75, kg, 11/28/22 16:45:00 EDT, Weight Dosing Start Date: 11/30/22 Status: Ordered phentermine hydrochloride 37.5 mg oral tablet (3 sources) Sympathomimetic Amine Anorectic Start: 08-26-2022 take 1 tablet by mouth once daily phentermine 37.5 mg Tab 37.5 mg = 1 tab(s), Oral, Daily, # 30 tab(s), Refills(s) 0, Pharmacy: [facility] [id number] [facility], 160, cm, 08/26/22 13:04:00 EDT, Height/Length Dosing, 75.8, kg, 08/26/22 13:04:00 EDT, Weight Dosing Start Date: 08/26/22 Status: Ordered predniSONE 20 mg oral tablet (2 sources) Start: 11-21-2023 End: 11-26-2023 take 2 tablets by mouth once daily predniSONE 20 mg Tab 40 mg = 2 tab(s), Oral, Daily, X 5 day(s), # 10 tab(s), Refills(s) 0, Pharmacy: [facility] [id number] [facility], 160, cm, 11/21/23 17:41:00 EDT, Height/Length Dosing, 79, kg, 11/21/23 17:41:00 EDT, Weight Dosing Start Date: 11/21/23 Stop Date: 11/26/23 Status: Ordered sertraline 100 mg oral tablet (7 sources) Serotonin Reuptake Inhibitor Start: 01-18-2023 take 1 tablet by mouth once daily sertraline 100 mg Tab 100 mg = 1 tab(s), Oral, Daily, # 90 tab(s), Refills(s) 0, Pharmacy: [facility] [id number] [facility], 160, cm, 01/18/23 17:10:00 EST, Height/Length Dosing, 92.2, kg, 01/18/23 17:10:00 EST, Weight Dosing Start Date: 01/18/23 Status: Ordered Start: 05-23-2022 take 1 tablet by andrez th once daily sertraline 50 mg Tab 50 mg = 1 tab(s), Oral, Daily, # 30 tab(s), Refills(s) 0 Start Date: 05/23/22 Status: Ordered vitamin b12 1 mg/ml injectable solution (10 sources) Vitamin B12 Start: 08-07-2023 inject 1000 ug by subcutaneous injection every month cyanocobalamin 1000 mcg/mL Inj 1,000 mcg = 1 mL, SubCutaneous, qMonth, # 10 mL, Refills(s) 1, Pharmacy: [facility] [id number] [facility], 160, cm, 06/14/23 17:02:00 EDT, Height/Length Dosing, 76.2, kg, 06/14/23 17:02:00 EDT, Weight Dosing Start Date: 08/07/23 Status: Ordered Start: 08-26-2022 inject 1000 ug by dc bcutaneous injection every month cyanocobalamin 1000 mcg/mL Inj 1,000 mcg = 1 mL, SubCutaneous, qMonth, # 10 mL, Refills(s) 2, Pharmacy: [facility] [address] [facility], 160, cm, 08/26/22 13:04:00 EDT, Height/Length Dosing, 75.8, kg, 08/26/22 13:04:00 EDT, Weight Dosing Start Date: 08/26/22 Status: Ordered Vitamin D2 50,000 intl units (1.25 mg) oral capsule (3 sources) Start: 08-19-2022 take 1 capsule by mouth two times weekly Vitamin D2 50,000 intl units (1.25 mg) oral capsule See Instructions, 1 cap(s) Oral twice a week, Refills(s) 0 Start Date: 08/19/22 Status: Ordered Completed/Discontinued Medications Medication Drug Class(es) Dates Sig (Normalized) Sig (Original) fluconazole 150 mg oral tablet (3 sources) Azole Antifungal Start: 12-09-2022 take 4 tablets by mouth once fluconazole 150 mg Tab 150 mg = 1 tab(s), Oral, Once, take one tab on day one and one tab on day 4, # 2 tab(s), Refills(s) 1, Pharmacy: [facility] [address] [facility], 160, cm, 12/09/22 14:00:00 EDT, Height/Length Dosing, 76, kg, 12/09/22 14:00:00 EDT, Weight Dosing Start Date: 12/09/22 Status: Ordered Start: 11-09-2022 take 1 tablet by mouth once fl uconazole 150 mg Tab 150 mg = 1 tab(s), Oral, Once, # 1 tab(s), Refills(s) 1, Pharmacy: [facility] [place] [id number] [facility], 160, cm, 11/11/22 15:01:00 EDT, Height/Length Dosing, 73.5, kg, 11/11/22 15:01:00 EDT, Weight Dosing Start Date: 11/11/22 Status: Ordered Hydroxocobalamin (3 sources) Antidote Start: 05-23-2022 inject 1 mL by intramuscular injection every month Hydroxocobalamin See Instructions, 1,000mcg/ml IM solution 1 ml monthly, # 1 mL, Refills(s) 0 Start Date: 05/23/22 Status: Ordered potassium chloride 20 meq oral tablet (3 sources) Start: 11-13-2023 take 1 tablet by mouth twice daily Potassium Chloride (Eqv-K-Tab) 20 mEq oral tablet, extended release 20 mEq = 1 tab(s), Oral, BID, # 60 tab(s), Refills(s) 1, Pharmacy: [facility] [id number] [facility], 160, cm, 11/10/23 14:00:00 EDT, Height/Length Dosing, 79.1, kg, 11/10/23 14:00:00 EDT, Weight Dosing Start Date: 11/13/23 Status: Ordered Problems Active Problems Problem Classification Problem Date Documented Da te Episodic/Chronic Abdominal pain (9 sources) Unspecified abdominal pain; Translations: [Generalized abdominal pain] Onset: 1 Episodic Administrative/social admission (1 source) Counseling procedure with explicit context; Translations: [Dietary counseling and surveillance] Episodic Anxiety disorders (7 sources) Mixed anxiety and depressive disorder 01-18-2023 Chronic Asthma (11 sources) Asthma 05-23-2022 Chronic Deficiency and other anemia (11 sources) Pernicious anemia 05-23-2022 Episodic Diabetes mellitus without complication (4 sources) Hyperglycemia 11-10-2023 Episodic Diseases of white blood cells (11 sources) Elevated white blood cell count, unspecified; Translations: [Leukocytosis] Onset: 1 08-26-2022 Chronic Esophageal disorders (11 sources) Gastroesophageal reflux disease 05-23-2022 Chronic Essential hypertension (12 sources) Essential (primary) hypertension; Translations: [Hypertensive disorder] Onset: 1 05-23-2022 Chronic Genitourinary symptoms and ill-defined conditions (4 sources) Hematuria, unspecified; Translations: [HEMATURIA UNSPECIFIED] Onset: 1 Episodic Inflammation; infection of eye (except that caused by tuberculosis or sexually transmitteddisease) (1 source) Scleritis; Translations: [Unspecified scleritis, unspecified eye] Onset: 4 Episodic Malaise and fatigue (11 sources) Fatigue 08-19-2022 Episodic Mycoses (8 sources) Candidiasis of mouth 10-21-2022 Episodic Nutritional deficiencies (12 sources) Vitamin D deficiency, unspecified; Translations: [Vitamin D deficiency] Onset: 2 05-23-2022 Chronic Nutritional deficiencies (12 sources) Deficiency of other specified B group vitamins; Translations: [Cobalamin deficiency] Onset: 2 05-23-2022 Episodic Other circulatory disease (7 sources) Congestion of throat 02-15-2023 Episodic Other connective tissue disease (4 sources) Other muscle spasm; Translations: [OTHER MUSCLE SPASM] Onset: 1 Episodic Other endocrine disorders (11 sources) Hypoglycemia 02-15-2021 Chronic Other gastrointestinal disorders (11 sources) Abdominal bloating 05-23-2022 Episodic Other lower respiratory disease (8 sources) Cough; Translations: [Cough, unspecified] Onset: 4 02-15-2023 Episodic Other nutritional; endocrine; and metabolic disorders (1 source) Metabolic syndrome; Translations: [METABOLIC SYNDROME] Onset: 1 Chronic Other nutritional; endocrine; and metabolic disorders (10 sources) Calorie overload 08-26-2022 Chronic Other nutritional; endocrine; and metabolic disorders (8 sources) Insulin resistance 12-09-2022 Chronic Other nutritional; endocrine; and metabolic disorders (11 sources) Overweight in adulthood with body mass index of 25 or more but less than 30 05-23-2022 Episodic Other nutritional; endocrine; and metabolic disorders (8 sources) Overweight 12-01-2022 Episodic Other nutritional; endocrine; and metabolic disorders (4 sources) Weight gain 11-10-2023 Episodic Other upper respiratory infections (16 sources) Pharyngitis; Translations: [Sore throat symptom] 11-28-2022 Episodic Spondylosis; intervertebral disc disorders; other back problems (5 sources) Dorsalgia, unspecified; Translations: [DORSALGIA UNSPECIFIED] Onset: 1 Episodic Unclassified (1 source) CONTACT W/AND (SUSP) EXPOS COVID-19; Translations: [CONTACT W/AND (SUSP) EXPOS COVID-19] Onset: 1 Unclassified (11 sources) Non-smoker 05-23-2022 Unclassified (10 sources) Cancer cervix screening status 08-26-2022 Unclassified (20 sources) Patient encounter status 08-26-2022 Urinary tract infections (4 sources) Urinary tract infection, site not specified; Translations: [UTI SITE NOT SPECIFIED] Onset: 1 Episodic Past or Other Problems Problem Classification Problem Date Documented Da te Episodic/Chronic Biliary tract disease (1 source) Calculus of gallbladder with acute and chronic cholecystitis without obstruction; Translations: [CALCU GB W/AC CHRN CHOLCYST NO OBST] Onset: 11-17-2020 Episodic Fluid and electrolyte disorders (2 sources) Acidosis; Translations: [Dehydration] Onset: 11-17-2020 Episodic Other aftercare (1 source) Other termite inspector (current) drug therapy; Translations: [OTH ALF CURRENT DRUG THERAPY] Onset: 11-17-2020 Episodic Other gastrointestinal disorders (5 sources) Diarrhea, unspecified; Translations: [DIARRHEA UNSPECIFIED] Onset: 06-26-2020 Episodic Other gastrointestinal disorders (5 sources) Abdominal distension (gaseous); Translations: [ABDOMINAL DISTENSION GASEOUS] Onset: 06-02-2020 Episodic Other lower respiratory disease (1 source) Other nonspecific abnormal finding of lung field; Translations: [OTH NONSPECIFIC ABN FIND LNG FIELD] Onset: 12-03-2020 Episodic Unclassified (1 source) Insulin resistance; Translations: [Insulin resistance, unspecified] Results Test Name Value Interpretation Reference Range Facility Ambulatory Visit Summaryon 1 Ambulatory Visit Summary Ambulatory Visit Summary LETITIA WEBER :1980 Visit Date:12/01/2023 Ambulatory Visit Instructions Your Care Team Attending Physician - Libby Cook Primary Care Physician - Melissa Selby This Is Your Medications List Contact prescribing physician if questions or concerns Misc Prescription (Blood glucose monitor) Misc Prescription (Freestyle Zonia 2 Sensors) Misc Prescription (Freestyle Zonia 2) Misc Prescription (Freestyle Zonia 3 Flash Glucose Monitoring 14 Day System (Sensor)) Misc Prescription (Freestyle Zonia 3 sensors) Misc Prescription (Misc DME Prescription) Misc Prescription (blood glucose testing strips) Misc Prescription (lancets) albuterol (Albuterol (Eqv-ProAir HFA) 90 mcg/inh inhalation aerosol) azithromycin (azithromycin 250 mg Tab) bisoprolol-hydrochlo rothiazide (bisoprolol-hydrochl orothiazide 10 mg-6.25 mg Tab) busPIRone (busPIRone 7.5 mg oral tablet) cyanocobalamin (cyanocobalamin 1000 mcg/mL Inj) ergocalciferol (ergocalciferol 50,000 intl units Cap) potassium chloride (Potassium Chloride (Eqv-K-Tab) 20 mEq oral tablet, extended release) semaglutide (Ozempic 2 mg/3 mL (0.25 mg or 0.5 mg dose) subcutaneous solution) Procedures Performed Cholecystectomy and exploration of bile duct (02/21/2020), Knee. Discharge Vitals Temperature (Tympanic) 37 ?C Heart Rate (Peripheral) 78 Blood Pressure 120/80 Height 160 cm Height 63 in Weight 79 kg Weight 173.8 lb BMI 30.86 Medications What How Much When Why Instructions Unchanged albuterol (Albuterol (Eqv-ProAir HFA) 90 mcg/ inh inhalation aerosol) 2 Puffs Inhalation Every 6 hours Wheezing Contact prescribing physician if questions or concerns Unchanged azithromycin (azithromycin 250 mg Tab) 1 Packets By Mouth As Directed Cough Duration: 5 Days as directed on package labeling Contact prescribing physician if questions or concerns Unchanged bisoprolol-hydrochlo rothiazide (bisoprolol-hydrochl orothiazide 10 mg-6.25 mg Tab) 1 Tablets By Mouth Every day Contact prescribing physician if questions or concerns Unchanged busPIRone (busPIRone 7.5 mg oral tablet) 1 Tablets By Mouth Every day as needed for Anxiety Non-smoker Fatigue Elevated WBC count BMI 29.0-29.9,adult Encounter for weight management as needed for anxiety Contact prescribing physician if questions or concerns Unchanged cyanocobalamin (cyanocobalamin 1000 mcg/ mL Inj) 1 Milliliter Subcutaneous Once a month Well woman exam Elevated WBC count Fatigue Breast cancer screening by mammogram Cervical cancer screening Abdominal bloating Vitamin B12 deficiency Excessive dietary caloric intake BMI 29.0-29.9,adult Non-smoker Contact prescribing physician if questions or concerns Unchanged ergocalciferol (ergocalciferol 50,000 intl units Cap) 1 Capsules By Mouth 2 times a week Contact prescribing physician if questions or concerns Unchanged Misc Prescription (Blood glucose monitor) See instructions Oral thrush Encounter for weight management Fatigue Hypoglycemia BMI 28.0-28.9,adult Non-smoker Check blood sugar 3 times per day Contact prescribing physician if questions or concerns Unchanged Misc Prescription (blood glucose testing strips) See instructions Oral thrush Encounter for weight management Fatigue Hypoglycemia BMI 28.0-28.9,adult Non-smoker test blood sugar 3 times per day Contact prescribing physician if questions or concerns Unchanged Misc Prescription (Freestyle Zonia 2 Sensors) See instructions Use to montior bs Contact prescribing physician if questions or concerns Unchanged Misc Prescription (Freestyle Zonia 2) See instructions Diabetes Check blood sugars 4 times per day Contact prescribing physician if questions or concerns Unchanged Misc Prescription (Freestyle Zonia 3 Flash Glucose Monitoring 14 Day System (Sensor)) See instructions Freestyle Zonia 3 Flash Glucose Monitoring 14 Day System (Sensor). Replace sensor every 14 days. Contact prescribing physician if questions or concerns Unchanged Misc Prescription (Freestyle Zonia 3 sensors) See instructions change every 14 days and as needed Contact prescribing physician if questions or concerns Unchanged Misc Prescription (lancets) See instructions Oral thrush Encounter for weight management Fatigue Hypoglycemia BMI 28.0-28.9,adult Non-smoker check blood sugar 3 times per day Contact prescribing physician if questions or concerns Unchanged Misc Prescription (Misc DME Prescription) See instructions Freestyle 3 plus sensors Use with freestyle zonia 3 to test blood sugars Contact prescribing physician if questions or concerns Unchanged potassium chloride (Potassium Chloride (Eqv-K-Tab) 20 mEq oral tablet, extended release) 1 Tablets By Mouth 2 times a day Contact prescribing physician if questions or concerns Unchanged semaglutide (Ozempic 2 mg/ 3 mL (0.25 mg or 0.5 mg dose) subcutaneous solution) 0.25 Milligram Subcutaneous Every week Contact prescribing physician if quest (more content not included)... Normal [facility] Family Medicine Office/Clini c Noteon 12-01-2023 Family Medicine Office/Clinic Note Family Medicine Office/Clinic Note Chief Complaint eye irritation HPI Staff 42 year old female presents with rt eye irritation, blurred vision, and redness for the past week pt is diabetic and worried that it is related to her blood sugars biotrue eye drops History of Present Illness I have reviewed and verified the staff HPI to be accurate for this encounter. Portions of this record have been created with voice recognition software. Occasional wrong-word or ?[id number]? substitutions may have occurred due to the inherent limitations of voice recognition software. 42 year old female presents with complaint of one week of right eye redness and blurred vision. She notes that the iris appears slightly misshapened also. She states her right eye is not painful, itchy or having any discharge. She has not had any draining or crusting of her eyes. There is no photosensitivity. She does not report any trauma to the eye. Patient has continuous blood sugar monitoring system and her sugar was 117 in the office with no recent readings above 200. She states sometimes goes low which causes her to feel weak. She wonders if the eye issue is from her blood sugar. Review of Systems PHQ Score Initial Depression Screen Score: 0 SCORE ROS negative unless otherwise stated in HPI. Physical Exam Vitals & Measurements T: 37 ?C(Tympanic) HR: 78(Peripheral) BP: 120/80 SpO2: 99% HT: 63 in HT: 160 cm WT: 79 kg WT: 173.8 lb BMI: 30.86 General: Well developed, well nourished, in no acute distress Ears: not assessed Eyes:Left eye WNL. Right eye: inner sclera only mildly injected. Iris appears slightly misshaped on the media lower aspect. PERRLA. No foreign body noted. No sensation of pain reported. No drainage. No photosensitivity. Nose: not addressed Mouth: not assessed Neck: not assessed Lungs: clear to auscultation throughout, no wheezing, no rales. No respiratory distress RR 18 Cardio: regular rate and rhythm, no murmur Abdomen: not assessed Musculoskeletal: not assessed Extremity: not assessed Neurologic: reports mild blurring of vision or right eye Skin: not assessed Mental Status: Alert and oriented x3. Normal mood and affect Assessment/Plan Explained to patient I did not think she has an acute infection and possibly some sort of scleritis causing edema and symptoms affecting her vision. We do sometimes see conditions with the eyes with elevated blood sugar, however, hers does not appear to have been that high. Her blood sugars had not been consistently over 200 so I doubt it is related to hyperglycemia. She is on ozempic for insulin resistance and has more issues with hypoglycemia than hyperglycemia from what I gather. I explained she should be evaluated by her opthalmologist who have specialized equipment and more expertise with diagnosing conditions of the eye. She does have an opthalmology provider who she sees yearly and will follow up with them ERIK. 1. 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 Follow-up With When Contact Information Debbie RUDD, Melissa Adhikari, FAM, MED Additional Instructions: Problem List/Past Medical History Ongoing Abdominal bloating Anxiety and depression Asthma BMI 29.0-29.9,adult Breast cancer screening by mammogram Cervical cancer screening Chronic GERD Congestion of throat Cough Elevated blood sugar Elevated WBC count Encounter for weight management Excessive dietary caloric intake Fatigue HTN (hypertension) Insulin resistance Non-smoker Oral thrush Overweight Pernicious anemia Pharyngitis Sore throat Vitamin B12 deficiency Vitamin D deficiency Weight gain Well woman exam Historical No qualifying data Procedure/Surgical History Cholecystectomy and exploration of bile duct (02/21/2020), Knee. Medications Albuterol (Eqv-ProAir HFA) 90 mcg/inh inhalation aerosol, 2 puff(s), Inhalation, q6hr azithromycin 250 mg Tab, 1 packet(s), Oral, As Directed bisoprolol-hydrochlo rothiazide 10 mg-6.25 mg Tab, 1 tab(s), Oral, Daily, 3 refills Blood glucose monitor, See Instructions blood glucose testing strips, See Instructions, 1 refills busPIRone 7.5 mg oral tablet, 7.5 mg= 1 tab(s), Oral, Daily, PRN, 3 refills cyanocobalamin 1000 mcg/mL Inj, 1000 mcg= 1 mL, SubCutaneous, qMonth, 1 refills ergocalciferol 50,000 intl units Cap, 20323 International_Unit= 1 cap(s), Oral, 2x/Wk, 4 refills Freestyle Zonia 2, See Instructions Freestyle Zonia 2 Sensors, See Instructions, 5 refills Freestyle Zonia 3 Flash Glucose Monitoring 14 Day System (Sensor), See Instructions, 1 refills Freestyle Zonia 3 sensors, See Instructions, 3 refills lancets, See Instructions, 1 refills Misc DME Prescription, See Instructions, 3 refills Ozempic 2 mg/3 mL (0.25 mg or 0.5 mg dose) subcutaneous solution, 0.25 mg, SubCutaneous, qWeek, 1 refills Potassiu (more content not included)... Normal [facility] Comment on above: Result Comment: Elec tronically Signed By: Makayla MORAN, Libby\.br\Date and Time Signed: 12/01/23 13:44 EDT Family Medicine Office/Clini c Noteon 11-22-2023 Family Medicine Office/Clinic Note Family Medicine Office/Clinic Note Chief Complaint cough HPI Staff 42 year old female presents with cough and chest congestion for the past 4 days, hx of pneumonia mucinex History of Present Illness I have reviewed and verified the staff HPI to be accurate for this encounter. Portions of this record have been created with voice recognition software. Occasional wrong-word or ?[id number]? substitutions may have occurred due to the inherent limitations of voice recognition software. 42 yo female with history of chronic GERD, hypertension and hypoglycemia presents to convenient care today with chief complaint of cough and congestion which started at the end of last week approximately 5 days ago. Patient states that the cough is mostly dry but sometimes she feels a little short of breath similar to when she had pneumonia in the past. Is concerned for pneumonia would like a chest x-ray today as she notes that her daughter who has Down syndrome is scheduled for a spinal procedure next week and she states she cannot be down or passed anything to her. She denies any history of asthma COPD or smoking history. Denies wheezing. Denies any chest pain shortness of breath or difficulty breathing. She denies any recent sick contacts or recent travel denies any fever chills or weakness with it. Denies any abdominal pain nausea vomiting or loose stools denies any sore throat ear pain. She has no other concerns at this time Review of Systems PHQ Score Initial Depression Screen Score: 0 SCORE ROS negative unless otherwise stated in HPI. Physical Exam Vitals & Measurements T: 37 ?C(Tympanic) HR: 76(Peripheral) BP: 118/76 SpO2: 98% HT: 63 in HT: 160 cm WT: 79 kg WT: 173.8 lb BMI: 30.86 General: Well developed, well nourished, in no acute distress Eyes: Bilateral conjunctiva within normal limits no injection Ears: Bilateral TMs are within normal limits no erythema or bulging. Bilateral external auditory canals are within normal limits no erythema or edema Nose: No deformity, discharge, inflammation, or lesions Mouth: Moist mucous membranes. Uvula is midline. No acute tonsillar erythema edema or exudate. No signs of peritonsillar abscess. No trismus or drooling. Neck: no adenopathy Lungs: Lung sounds are clear bilaterally slightly diminished at bilateral lower lung bases otherwise clear throughout no crackles rhonchi or wheezing. Symmetrical expansion no signs of respiratory distress Cardio: S1, S2, regular rhythm. No murmurs gallops or rubs. Abdomen: not assessed Musculoskeletal: not assessed Extremity: not assessed Neurologic: not assessed Skin: not assessed Mental Status: Alert and oriented x3. Normal mood and affect Assessment/Plan Patient would like a chest x-ray to completed as she feels like she has pneumonia. Will order for the patient. Chest x-ray is negative for any acute consolidation. Patient is updated in regards to negative x-ray results. Patient was treated in regards to viral bronchitis with Tessalon Perles 1 tablet every 8 hours as needed for cough in addition to prednisone 40 mg daily x 5 days duration. Patient should follow closely with primary care provider or otherwise return if needed. Should see the ER for reevaluation if shops any chest pain shortness of breath or difficulty breathing in which patient agrees and understands plan will have office contact patient in regards to negative chest x-ray result. 1. Cough (R05.9: Cough, unspecified) You were treated in regards to viral bronchitis at this time. I do not know anything significant on your chest x-ray, looking at it on my ow,n however we will wait for radiology interpretation we will contact you back. Patient is understanding. Will treat currently for viral bronchitis with Tessalon Perles 1 tablet every 8 hours as needed for cough in addition to prednisone 40 mg daily x 5 days duration. Patient will otherwise continue to monitor her symptoms. If she develops any worsening cough or wheezing chest pain shortness of breath difficulty breathing she should be reevaluated in the emergency department or see primary care provider for reevaluation patient may also return if needed. Patient agrees and understands plan of care Ordered: benzonatate, 100 mg = 1 cap(s), Oral, TID, X 7 day(s), # 21 cap(s), Refills(s) 0, [facility]acy: [id number], 160, cm, 11/21/23 17:41:00 EDT, Height/Length Dosing, 79, kg, 11/21/23 17:41:00 EDT, Weight Dosing predniSONE, 40 mg = 2 tab(s), Oral, Daily, X 5 day(s), # 10 tab(s), Refills(s) 0, [facility]: [id number], 160, cm, 11/21/23 17:41:00 EDT, Height/Length Dosing, 79, kg, 11/21/23 17:41:00 EDT, Weight Dosing XR Chest 2 Views Follow-up With When Contact Information Melissa Selby, FAM, MED Additional Instructions: Patient Education Cough, Adult, [id number] Problem List/Past Medical History Ongoing Abdominal bloating Anxiety and depression Asthma BMI 29.0-29.9,adult Breast cancer screening by mammogram Cervi (more content not included)... Normal [facility] Comment on above: Result Comment: Elec tronically Signed By: Allen BROWN, Riki Rubio\.br\Date and Time Signed: 11/22/23 07:13 EDT XR Chest 2 Viewson XR Chest 2 Views Exam Date/Time: 11/21/2023 18:05 EDT Reason for Exam: cough x 5 days, concern for pneumonia;Cough Report IMPRESSION: SHALLOW INSPIRATORY VOLUMES WITH MILD LEFT BASILAR INFILTRATE/ATELECTAS IS. BRONCHOPNEUMONIA SHOULD BE EXCLUDED CLINICALLY. EXAM: XR Chest 2 Views DATE: 11/21/2023 6:04 PM CLINICAL HISTORY: Cough, cough x 5 days, concern for pneumonia. COMPARISON: None available. TECHNIQUE: An upright portable AP radiograph of the chest was obtained. FINDINGS: Shallow inspiratory volumes are present with mild infiltrate/atelectas is of the left lung base. Bronchopneumonia should be excluded clinically. There is no other significant infiltrate, cardiomegaly, vascular congestion, sizable pleural effusion, pneumothorax, or displaced fractures identified. Ordering Provider: Riki Villa FINAL REPORT Dictated: 11/22/2023 8:35 am Ramu Lira MD Signed (Electronic Signature): 11/22/2023 8:35 am Signed by: Ramu Lria MD Transcribed by: DEANGELO Technologist: EZIO Technical Comments Radiation Dose: Kar in mGy = na DAP = na Normal [facility] Ambulatory Visit Summaryon 1 Ambulatory Visit Summary Ambulatory Visit Summary LETITIA WEBER :1980 Visit Date:11/21/2023 Ambulatory Visit Instructions Your Diagnosis Cough Your Care Team Attending Physician - Riki Villa PA-C Primary Care Physician - Melissa Selby This Is Your Medications List Contact prescribing physician if questions or concerns Misc Prescription (Blood glucose monitor) Misc Prescription (Freestyle Zonia 2 Sensors) Misc Prescription (Freestyle Zonia 2) Misc Prescription (Freestyle Zonia 3 sensors) Misc Prescription (blood glucose testing strips) Misc Prescription (lancets) bisoprolol-hydrochlo rothiazide (bisoprolol-hydrochl orothiazide 10 mg-6.25 mg Tab) busPIRone (busPIRone 7.5 mg oral tablet) cyanocobalamin (cyanocobalamin 1000 mcg/mL Inj) ergocalciferol (ergocalciferol 50,000 intl units Cap) potassium chloride (Potassium Chloride (Eqv-K-Tab) 20 mEq oral tablet, extended release) semaglutide (Ozempic 2 mg/3 mL (0.25 mg or 0.5 mg dose) subcutaneous solution) Procedures Performed Cholecystectomy and exploration of bile duct (02/21/2020), Knee. Discharge Vitals Temperature (Tympanic) 37 ?C Heart Rate (Peripheral) 76 Blood Pressure 118/76 Height 160 cm Height 63 in Weight 79 kg Weight 173.8 lb BMI 30.86 Medications What How Much When Why Instructions Unchanged bisoprolol-hydrochlo rothiazide (bisoprolol-hydrochl orothiazide 10 mg-6.25 mg Tab) 1 Tablets By Mouth Every day Contact prescribing physician if questions or concerns Unchanged busPIRone (busPIRone 7.5 mg oral tablet) 1 Tablets By Mouth Every day as needed for Anxiety Non-smoker Fatigue Elevated WBC count BMI 29.0-29.9,adult Encounter for weight management as needed for anxiety Contact prescribing physician if questions or concerns Unchanged cyanocobalamin (cyanocobalamin 1000 mcg/ mL Inj) 1 Milliliter Subcutaneous Once a month Well woman exam Elevated WBC count Fatigue Breast cancer screening by mammogram Cervical cancer screening Abdominal bloating Vitamin B12 deficiency Excessive dietary caloric intake BMI 29.0-29.9,adult Non-smoker Contact prescribing physician if questions or concerns Unchanged ergocalciferol (ergocalciferol 50,000 intl units Cap) 1 Capsules By Mouth 2 times a week Contact prescribing physician if questions or concerns Unchanged Misc Prescription (Blood glucose monitor) See instructions Oral thrush Encounter for weight management Fatigue Hypoglycemia BMI 28.0-28.9,adult Non-smoker Check blood sugar 3 times per day Contact prescribing physician if questions or concerns Unchanged Misc Prescription (blood glucose testing strips) See instructions Oral thrush Encounter for weight management Fatigue Hypoglycemia BMI 28.0-28.9,adult Non-smoker test blood sugar 3 times per day Contact prescribing physician if questions or concerns Unchanged Misc Prescription (Freestyle Zonia 2 Sensors) See instructions Use to montior bs Contact prescribing physician if questions or concerns Unchanged Misc Prescription (Freestyle Zonia 2) See instructions Diabetes Check blood sugars 4 times per day Contact prescribing physician if questions or concerns Unchanged Misc Prescription (Freestyle Zonia 3 sensors) See instructions BMI 30.0-30.9,adult Non-smoker change sensor every two weeks and as needed Contact prescribing physician if questions or concerns Unchanged Misc Prescription (lancets) See instructions Oral thrush Encounter for weight management Fatigue Hypoglycemia BMI 28.0-28.9,adult Non-smoker check blood sugar 3 times per day Contact prescribing physician if questions or concerns Unchanged potassium chloride (Potassium Chloride (Eqv-K-Tab) 20 mEq oral tablet, extended release) 1 Tablets By Mouth 2 times a day Contact prescribing physician if questions or concerns Unchanged semaglutide (Ozempic 2 mg/ 3 mL (0.25 mg or 0.5 mg dose) subcutaneous solution) 0.25 Milligram Subcutaneous Every week Contact prescribing physician if questions or concerns Allergies Tylenol with Codeine (Hallucinations) Problems Ongoing - Any problem that you are currently receiving treatment for. Abdominal bloating Anxiety and depression Asthma BMI 29.0-29.9,adult Breast cancer screening by mammogram Cervical cancer screening Chronic GERD Congestion of throat Cough Elevated blood sugar Elevated WBC count Encounter for weight management Excessive dietary caloric intake Fatigue HTN (hypertension) Insulin resistance Non-smoker Oral thrush Overweight Pernicious anemia Pharyngitis Sore throat Vitamin B12 deficiency Vitamin D deficiency Weight gain Well woman exam Patient Survey You may receive a survey via text or e-mail asking about your office visit. Please share your experience with us by completing your survey. We appreciate your feedback and thank you for choosing us for your care. Normal [facility] CBC w/ Auto Diffon 4 Basophils/100 WBC (Bld) 0.6 % Normal 0.0-2.0 [facility] Comment on above: Performed By: #### 2 [id number] #### [facility] [address] [place] [address] Basophils/Leukocytes Auto (Bld) [Pure # fraction] 0.1 E9/L Normal 0.0-0.2 [facility] Comment on above: Performed By: #### 2 [id number] #### [facility] [address] [place] [id number] Eosinophils (Bld) [#/Vol] 0.1 E9/L Normal 0.0-0.5 [facility] Comment on above: Performed By: #### 2 [id number] #### [facility] [address] [place] [id number] Eosinophils/100 WBC (Bld) 0.9 % Normal 0.0-8.0 [facility] Comment on above: Performed By: #### 2 [id number] #### [facility] [address] [place] [address] Erythrocyte distribution width (RBC) [Ratio] 14.9 % High 10.9-14.2 [facility] Comment on above: Performed By: #### 2 [id number] #### [facility] [address] [place] [address] 32799 Hematocrit (Bld) [Volume fraction] 40.5 % Normal 34.0-46.0 [facility] Comment on above: Performed By: #### 2 [id number] #### [facility] [address] [place] [address] 57995 Hemoglobin (Bld) [Mass/Vol] 13.9 g/dL Normal 12.0-16.0 [facility] Comment on above: Performed By: #### 2 [id number] #### [facility] [address] [place] [address]706 Lymphocytes (Bld) [#/Vol] 2.9 E9/L Normal 1.0-4.0 [facility] Comment on above: Performed By: #### 2 [id number] #### [facility] [address] [place] [address] Lymphocytes/100 WBC (Bld) 24.0 % Normal 14.0-50.0 [facility] Comment on above: Performed By: #### 2 [id number] #### [facility] [address] [place] [address] MCH (RBC) [Entitic mass] 28.5 pg Normal 27.0-34.0 [facility] Comment on above: Performed By: #### 2 [id number] #### [facility] [address] [place] [address] MCHC (RBC) [Mass/Vol] 34.2 g/dL Normal 31.4-36.0 [facility] Comment on above: Performed By: #### 2 [id number] #### [facility] [address] [place] [address] MCV (RBC) [Entitic vol] 83.4 fL Normal 80.0-100.0 [facility] Comment on above: Performed By: #### 2 [id number] #### [facility] [address] [place] [address] Monocytes (Bld) [#/Vol] 1.0 E9/L Normal 0.2-1.0 [facility] Comment on above: Performed By: #### 2 [id number] #### [facility] [address] [place] [address] Neutrophils (Bld) [#/Vol] 8.2 E9/L High 2.0-7.5 [facility] Comment on above: Performed By: #### 2 [id number] #### [facility] [address] [place] [address] Neutrophils/100 WBC (Bld) 66.5 % Normal 36.0-75.0 [facility] Comment on above: Performed By: #### 2 [id number] #### [facility] [address] [place] [address] Platelet 444.0 E9/L Normal 150.0-500.0 [facility] Comment on above: Performed By: #### 2 [id number] #### [facility] [address] [place] [address] Platelet mean volume (Bld) [Entitic vol] 7.8 fL Normal 6.4-10.8 [facility] Comment on above: Performed By: #### 2 [id number] #### [facility] [address] [place] [address] RBC (Bld) [#/Vol] 4.9 E12/L Normal 4.3-5.9 [facility] Comment on above: Performed By: #### 2 [id number] #### [facility] [address] [place] [address] WBC corrected for nucl RBC Auto (Bld) [#/Vol] 12.3 E9/L High 4.0-11.0 [facility] Comment on above: Performed By: #### 2 [id number] #### [facility] [address] [place] [address] CHEMISTRYOrdered By: SYSTEM SYSTEM on 11-10-2023 Albumin [Mass/Vol] 4.2 g/dL Normal 3.3 - 5.0 gm/dL [facility] Albumin/Globulin [Mass ratio] 1.6 {ratio} Normal 1.1 - 2.2 [facility] ALP [Catalytic activity/Vol] 81 [iU]/d Normal 21 - 98 Int._Unit/L [facility] Chem ALT No additional P-5'-P [Catalytic activity/Vol] 23 [iU]/d Normal 6 - 46 Int._Unit/L [facility] Anion gap [Moles/Vol] 11 mmol/L Normal 6 - 16 mEq/L R emisol Chem AST [Catalytic activity/Vol] 19 [iU]/d Normal 5 - 43 Int._Unit/L [facility] Bilirubin [Mass/Vol] 0.6 mg/dL Normal 0.0 - 1 .1 mg/dL [facility] Calcium [Mass/Vol] 9.0 mg/dL Normal 8.9 - 11. 1 mg/dL [facility] Chloride [Moles/Vol] 103 mmol/L Normal 101 - 1 11 mmol/L [facility] Cholesterol [Mass/Vol] 196 mg/dL Normal 120 - 200 mg/dL [facility] Cholesterol in HDL [Mass/Vol] 40 mg/dL Invalid Interpretation Code [facility] Comment on above: Result Comment: '>= 60 LOW RISK' '<= 40 HIGH RISK' Cholesterol in LDL [Mass/Vol] 150 mg/dL High <=129mg/dL [facility] Cholesterol in VLDL [Mass/Vol] 23 mg/dL Normal 7 - 40 mg/dL [facility] CO2 [Moles/Vol] 25 mmol/L Normal 21 - 31 mmol/L [facility] Creatinine [Mass/Vol] 0.6 mg/dL Normal 0.5 - 1.3 mg/dL [facility] eGFR 114 mL/min/1.73 m2 Normal >=59mL/mi n/1. 73 m2 [facility] Globulin (S) [Mass/Vol] 2.7 g/dL Normal 1.4 - 4.0 gm/dL [facility] Glucose [Mass/Vol] 127 mg/dL Normal 55 - 199 mg/dL [facility] Potassium [Moles/Vol] 3.3 mmol/L Low 3.5 - 5.3 mmol/L [facility] Protein [Mass/Vol] 6.9 g/dL Normal 6.0 - 7.8 gm/dL [facility] Sodium [Moles/Vol] 136 mmol/L Normal 135 - 145 mmol/L [facility] Triglyceride [Mass/Vol] 116 mg/dL Normal <=149mg/dL [facility] TSH Qn 1.62 m[IU]/L Normal 0.34 - 5.60 mcIU/mL [facility] Urea nitrogen [Mass/Vol] 11 mg/dL Normal 5 - 21 mg/dL [facility] Urea nitrogen/Creatinine [Mass ratio] 18 mg/mg Normal 10 - 20 [facility] CHEMISTRYOrdered By: Asad parmar on 11-10-2023 HbA1c (Bld) [Mass fraction] 5.6 % Normal <=5.9% [facility] ChemAutoSS CMPon 11-10-2023 Albumin [Mass/Vol] 4.2 g/dL Normal 3.3-5.0 [facility] Comment on above: Performed By: #### 2 [id number] #### [facility] [address] [place] [address] Albumin/Globulin (S) [Mass conc ratio] 1.6 Normal 1.1-2.2 [facility] Comment on above: Performed By: #### 2 [id number] #### [facility] [address] [place] [address] ALP [Catalytic activity/Vol] 81 Int._Unit/L Normal 21-98 [facility] Comment on above: Performed By: #### 2 [id number] #### [facility] [address] [place] [address] ALT No additional P-5'-P [Catalytic activity/Vol] 23 Int._Unit/L Normal 6-46 [facility] Comment on above: Performed By: #### 2 [id number] #### [facility] [address] [place] [address] Anion gap [Moles/Vol] 11 mmol/L Normal 6-16 [facility] Comment on above: Performed By: #### 2 [id number] #### [facility] [address] [place] [address] AST [Catalytic activity/Vol] 19 Int._Unit/L Normal 5-43 [facility] Comment on above: Performed By: #### 2 [id number] #### [facility] [address] [place] [address] Bilirubin [Mass/Vol] 0.6 mg/dL Normal 0.0-1.1 [facility] Comment on above: Performed By: #### 2 [id number] #### [facility] [address] [place] [address] Calcium [Mass/Vol] 9.0 mg/dL Normal 8.9-11.1 [facility] Comment on above: Performed By: #### 2 [id number] #### [facility] [address] [place] [address] Chloride [Moles/Vol] 103 mmol/L Normal 101-111 [facility] Comment on above: Performed By: #### 2 [id number] #### [facility] [address] [place] [address] CO2 [Moles/Vol] 25 mmol/L Normal 21-31 [facility] Comment on above: Performed By: #### 2 [id number] #### [facility] [address] [place] [address] Creatinine [Mass/Vol] 0.6 mg/dL Normal 0.5-1.3 [facility] Comment on above: Performed By: #### 2 [id number] #### [facility] [address] [place] [address] Globulin (S) [Mass/Vol] 2.7 g/dL Normal 1.4-4.0 [facility] Comment on above: Performed By: #### 2 100527 #### [facility] [address] [place] [address] Glucose [Mass/Vol] 127 mg/dL Normal 55-199 [facility] Comment on above: Performed By: #### 2 [id number] #### [facility] [address] [place] [address] Potassium [Moles/Vol] 3.3 mmol/L Low 3.5-5.3 [facility] Comment on above: Performed By: #### 2 [id number] #### [facility] [address] [place] [address] Protein [Mass/Vol] 6.9 g/dL Normal 6.0-7.8 [facility] Comment on above: Performed By: #### 2 [id number] #### [facility] [address] [place] [address] Sodium [Moles/Vol] 136 mmol/L Normal 135-145 [facility] Comment on above: Performed By: #### 2 [id number] #### [facility] [address] [place] [address] Urea nitrogen [Mass/Vol] 11 mg/dL Normal 5-21 [facility] Comment on above: Performed By: #### 2 [id number] #### [facility] [address] [place] [address] Urea nitrogen/Creatinine [Mass ratio] 18 No Units Normal - [facility] Comment on above: Performed By: #### 2 [id number] #### [facility] [address] [place] [address] Family Medicine Office/Clini c Noteon 11-10-2023 Family Medicine Office/Clinic Note Family Medicine Office/Clinic Note Chief Complaint Discuss blood sugar & weight HPI Staff Letitia is a 42 year old female presenting to discuss weight & blood sugars. Weight management Started Phentermine on then switched to Ozempic 12/26/22 No longer taking Ozempic due to insurance. Starting Weight: 166.82 Weight last visit: 167 Weight this visit: 174 Patient is here for follow up on Diabetes. How often are you checking your blood sugars? _? yes What are your average readings?_? 130 Are you compliant with your diet? yes? Do you exercise? yes? Are you compliant with your medications or having difficulty affording your medications? no? Do you have any of the following symptoms? Vision problems? yes when sugars are off Lightheadedness? yes when sugars are off Paresthesias, Ulcerations or sores? no? Urine has been a watered down tea color. No pain/burning with urination. Believes it is related to sugar level. No longer taking Sertraline. states she feels better without it. History of Present Illness pt presents today with concerns of elevated blood sugars Review of Systems PHQ Score Initial Depression Screen Score: 0 SCORE Physical Exam Vitals & Measurements T: 37.1 ?C(Temporal Artery) HR: 88(Peripheral) RR: 16 BP: 118/76 SpO2: 97% HT: 63 in HT: 160 cm WT: 79.1 kg WT: 174.02 lb BMI: 30.9 General: alert, no acute distress ENMT: oral mucosa moist, no pharyngeal erythema or exudate Cardiovascular: regular rate and rhythm, normal peripheral perfusion Respiratory: Lungs CTA, respirations non labored Extremities: no deformity, no trauma Neurological: oriented x 4, LOC appropriate for age, CN II-XII intact, motor strength equal & normal bilaterally, speech normal Assessment/Plan 1. Insulin resistance (E88.819: Insulin resistance, unspecified) pt was on Ozempic but lost insurance for a little bit. will check HGBA1C today. RTC 3 months Ordered: CBC w/ Auto Diff Comprehensive Metabolic Panel HgbA1c Lipid Panel Thyroid Stimulating Hormone 2. Elevated blood sugar (R73.9: Hyperglycemia, unspecified) last couple of seeks pt freestyle zonia readings have been higher especially after eating and at night. when it goes above 200 she feels terrible. fatigued, weak, fingers tingle headache. may consider restarting ozempic. Ordered: CBC w/ Auto Diff Comprehensive Metabolic Panel HgbA1c Lipid Panel Thyroid Stimulating Hormone 3. Fatigue (R53.83: Other fatigue) pt feeling fatigued again Ordered: desogestrel-ethinyl estradiol, 1 tab(s), Oral, Daily, 84 tab(s), Refill(s) 3, [id number], 160, cm, 06/14/23 17:02:00 EDT, Height/Length Dosing, 76.2, kg, 06/14/23 17:02:00 EDT, Weight Dosing CBC w/ Auto Diff Comprehensive Metabolic Panel HgbA1c Lipid Panel Thyroid Stimulating Hormone 4. Weight gain (R63.5: Abnormal weight gain) pt is up 7 pounds. Ordered: CBC w/ Auto Diff Comprehensive Metabolic Panel HgbA1c Lipid Panel Thyroid Stimulating Hormone 5. BMI 30.0-30.9,adult (Z68.30: Body mass index [BMI] 30.0-30.9, adult) BMI education given Ordered: [facility] Prescription, needles for semaglutide pen, See Instructions, 10 EA, 1, inject 0.50mg weekly, [facility], Supply, 160, cm, 01/18/23 17:10:00 EST, Height/Length Dosing, 92.2, kg, 01/18/23 17:10:00 EST, Weight Dosing CBC w/ Auto Diff Comprehensive Metabolic Panel HgbA1c Lipid Panel Thyroid Stimulating Hormone 6. Overweight (E66.3: Overweight) see above Ordered: CBC w/ Auto Diff Comprehensive Metabolic Panel HgbA1c Lipid Panel Thyroid Stimulating Hormone 7. Non-smoker (Z78.9: Other specified health status) continue not smoking Ordered: desogestrel-ethinyl estradiol, 1 tab(s), Oral, Daily, 84 tab(s), Refill(s) 3, [facility], 160, cm, 06/14/23 17:02:00 EDT, Height/Length Dosing, 76.2, kg, 06/14/23 17:02:00 EDT, Weight Dosing [facility] Prescription, needles for semaglutide pen, See Instructions, 10 EA, 1, inject 0.50mg weekly, [facility], Supply, 160, cm, 01/18/23 17:10:00 EST, Height/Length Dosing, 92.2, kg, 01/18/23 17:10:00 EST, Weight Dosing CBC w/ Auto Diff Comprehensive Metabolic Panel HgbA1c Lipid Panel Thyroid Stimulating Hormone Orders: fluticasone nasal, 2 spray(s), Nasal, Daily, 16 gram, Refill(s) 3, each nostril, [facility], 160, cm, 06/14/23 17:02:00 EDT, Height/Length Dosing, 76.2, kg, 06/14/23 17:02:00 EDT, Weight Dosing semaglutide, 1 mg, SubCutaneous, qWeek, X 90 day(s), # 12 EA, Refills(s) 1, Pharmacy: [id number], 160, cm, 06/14/23 17:02:00 EDT, Height/Length Dosing, 76.2, kg, 06/14/23 17:02:00 EDT, Weight Dosing sertraline, 50 mg = 1 tab(s), Oral, Daily, # 90 tab(s), Refills(s) 3, [facility]acy: [facility], 160, cm, 06/14/23 17:02:00 EDT, Height/Length Dosing, 76.2, kg, 06/14/23 17:02:00 EDT, Weight Dosing Follow-up No qualifying data available Problem List/Past Medical History Ongoing Abdominal bloating Anxiet (more content not included)... Normal [facility] Comment on above: Result Comment: Elec tronically Signed By: Melissa Selby\.br\Date and Time Signed: 11/10/23 14:30 EDT HEMATOLOGYOrdered By: SYSTEM SYSTEM on 11-10-2023 Basophils/100 WBC (Bld) 0.6 % Normal 0.0 - 2.0 % [facility]e Basophils/Leukocytes Auto (Bld) [Pure # fraction] 0.1 E9/L Normal 0.0 - 0.2 E9/L [facility] Eosinophils (Bld) [#/Vol] 0.1 E9/L Normal 0.0 - 0.5 E9/L [facility] Eosinophils/100 WBC (Bld) 0.9 % Normal 0.0 - 8.0 % [facility] Erythrocyte distribution width (RBC) [Ratio] 14.9 % High 10.9 - 14.2 % [facility] Hematocrit (Bld) [Volume fraction] 40.5 % Normal 34.0 - 46.0 % [facility] Hemoglobin (Bld) [Mass/Vol] 13.9 g/dL Normal 12.0 - 16.0 gm/dL [facility] Lymphocytes (Bld) [#/Vol] 2.9 E9/L Normal 1.0 - 4.0 E9/L [facility] Lymphocytes/100 WBC (Bld) 24.0 % Normal 14.0 - 50.0 % [facility] MCH (RBC) [Entitic mass] 28.5 pg Normal 27.0 - 34.0 pg [facility] MCHC (RBC) [Mass/Vol] 34.2 g/dL Normal 31.4 - 36.0 gm/dL [facility] MCV (RBC) [Entitic vol] 83.4 fL Normal 80.0 - 100.0 fL [facility] Monocytes (Bld) [#/Vol] 1.0 E9/L Normal 0.2 - 1.0 E9/L [facility] Monocytes/100 WBC (Bld) 8.0 % Normal 4.0 - 14.0 % [facility] Neutrophils (Bld) [#/Vol] 8.2 E9/L High 2.0 - 7.5 E9/L [facility] Neutrophils/100 WBC (Bld) 66.5 % Normal 36.0 - 75.0 % [facility] Platelet 444.0 E9/L Normal 150.0 - 500.0 E9/L [facility] Platelet mean volume (Bld) [Entitic vol] 7.8 fL Normal 6.4 - 10.8 fL [facility] RBC (Bld) [#/Vol] 4.9 E12/L Normal 4.3 - 5.9 E12/L [facility] WBC corrected for nucl RBC Auto (Bld) [#/Vol] 12.3 E9/L High 4.0 - 11.0 E9/L [facility] BrqC7mgd 11-10-2023 HbA1c (Bld) [Mass fraction] 5.6 % Normal <=5.9 [facility] Comment on above: Performed By: #### 7 [id number] #### [facility] [address] [place] [address] Lipid Panelon 11-10-2023 Cholesterol [Mass/Vol] 196 mg/dL Normal 120-200 [facility] Comment on above: Performed By: #### 2 [id number] #### [facility] [address] [place] [address] Cholesterol in HDL [Mass/Vol] 40 mg/dL Invalid Interpretation Code [facility] Comment on above: Result Comment: '>= 60 LOW RISK' '<= 40 HIGH RISK' Performed By: #### 2 [id number] #### [facility] [address] [place] [address] Cholesterol in LDL [Mass/Vol] 150 mg/dL High <=129 [facility] Comment on above: Performed By: #### 2 [id number] #### [facility] [address] [place] [address] Cholesterol in VLDL [Mass/Vol] 23 mg/dL Normal 7-40 [facility] Comment on above: Performed By: #### 2 [id number] #### [facility] [address] [place] [address] Triglyceride [Mass/Vol] 116 mg/dL Normal <=149 [facility] Comment on above: Performed By: #### 2 [id number] #### [facility] [address] [place] [address] TSHon 11-10-2023 TSH Qn 1.62 m[IU]/L Normal 0.34-5.60 [facility] Comment on above: Performed By: #### 2 [id number] #### [facility] [address] [place] [address] eGFRon 11-10-2023 eGFR 114 mL/min/1.73 m2 Normal >=59 [facility] Comment on above: Performed By: #### 1 [id number] #### [facility] [address] [place] [address] Family Medicine Office/Clini c Noteon 06-16-2023 Family Medicine Office/Clinic Note HPI Staff Letitia is a 42 year old female presenting for 3 month follow up Weight management: Started Phentermine on then switched to Ozempic 12/26/22 Sleeping well:Yes, 6-8 hours Chest pain:No Tremors:No Headaches:No Heart fluttering:No Blurred Vision:No Beginning weight: 166.82 Previous weight: 168.85 Today's weight: 167 Questions/Concerns: continues to have intermittent tingling in her tongue History of Present Illness pt presents today for follow up on ozempic Review of Systems PHQ Score Initial Depression Screen Score: 0 SCORE Physical Exam Vitals & Measurements HR: 80(Peripheral) RR: 18 BP: 112/82 SpO2: 97% HT: 63 in HT: 160.0 cm WT: 76.2 kg WT: 167.64 lb BMI: 29.77 General: alert, no acute distress ENMT: oral mucosa moist, no pharyngeal erythema or exudate Cardiovascular: regular rate and rhythm, normal peripheral perfusion Respiratory: Lungs CTA, respirations non labored Extremities: no deformity, no trauma Neurological: oriented x 4, LOC appropriate for age, CN II-XII intact, motor strength equal & normal bilaterally, speech normal Assessment/Plan 1. Insulin resistance (E88.819: Insulin resistance, unspecified) pt doing well. down 1 pound. but states her blood sugars are more stable and she feels so much better. she has energy. ozempic refill sent will keep same dose. RTC 3 months 2. BMI 29.0-29.9,adult (Z68.29: Body mass index [BMI] 29.0-29.9, adult) BMI education complete 3. Non-smoker (Z78.9: Other specified health status) continue not smoking Follow-up No qualifying data available Problem List/Past Medical History Ongoing Abdominal bloating Anxiety and depression Asthma BMI 29.0-29.9,adult Breast cancer screening by mammogram Cervical cancer screening Chronic GERD Congestion of throat Cough Elevated WBC count Encounter for weight management Excessive dietary caloric intake Fatigue HTN (hypertension) Insulin resistance Non-smoker Oral thrush Overweight Pernicious anemia Pharyngitis Sore throat Vitamin B12 deficiency Vitamin D deficiency Well woman exam Historical No qualifying data Procedure/Surgical History Cholecystectomy and exploration of bile duct (02/21/2020), Knee. Medications Apri oral tablet, 1 tab(s), Oral, Daily, 3 refills bisoprolol-hydrochlo rothiazide 10 mg-6.25 mg Tab Blood glucose monitor, See Instructions blood glucose testing strips, See Instructions, 1 refills busPIRone 7.5 mg oral tablet, 7.5 mg= 1 tab(s), Oral, Daily, PRN, 3 refills cyanocobalamin 1000 mcg/mL Inj, 1000 mcg= 1 mL, SubCutaneous, qMonth, 2 refills ergocalciferol 50,000 intl units Cap, 744[address] International_Unit= 1 cap(s), Oral, 2x/Wk, 2 refills Flonase 0.05 mg/inh [place], 2 spray(s), Nasal, Daily, 3 refills Freestyle Zonia 2, See Instructions Freestyle Zonia 2 Sensors, See Instructions, 5 refills Freestyle Zonia 3 sensors, See Instructions, 6 refills lancets, See Instructions, 1 refills metformin 500 mg Tab, 500 mg= 1 tab(s), Oral, BID, 4 refills needles for semaglutide pen, See Instructions, 1 refills nitrofurantoin macrocrystals-monohy drate 100 mg Cap, 100 mg= 1 cap(s), Oral, BID Ozempic (1 mg dose) 4 mg/3 mL subcutaneous solution, 1 mg, SubCutaneous, qWeek, 1 refills sertraline 50 mg Tab, 50 mg= 1 tab(s), Oral, Daily Allergies Tylenol with Codeine (Hallucinations) Social History Alcohol - Denies Alcohol Use, 05/23/2022 Substance Abuse - Denies Substance Abuse, 05/23/2022 Tobacco Never (less than 100 in lifetime) Tobacco Use:. Never Smokeless Tobacco Use:. Household tobacco concerns: No., 06/14/2023 Family History Family history is negative Immunizations Vaccine Date Status Comments influenza virus vaccine, inactivated - Not Given Patient Refuses influenza virus vaccine, inactivated - Not Given Patient Refuses SARS-CoV-2 mRNA (tozinameran 5y-11y) vac - Not Given Postpone due to refusal [facility] Comment on above: Result Comment: Elec tronically Signed By: Melissa Selby\.br\Date and Time Signed: 06/16/23 12:19 EDT Ambulatory Visit Summaryon 0 06-14-2023 Ambulatory Visit Summary LETITIA WEBER :1980 Visit Date:06/14/2023 Ambulatory Visit Instructions Your Diagnosis BMI 29.0-29.9,adult Non-smoker Your Care Team Attending Physician - Melissa Selby Primary Care Physician - Melissa Selby This Is Your Medications List Misc Prescription (Blood glucose monitor) Misc Prescription (Freestyle Zonia 2 Sensors) Misc Prescription (Freestyle Zonia 2) Misc Prescription (Freestyle Zonia 3 sensors) Misc Prescription (blood glucose testing strips) Misc Prescription (lancets) Misc Prescription (needles for semaglutide pen) bisoprolol-hydrochlo rothiazide (bisoprolol-hydrochl orothiazide 10 mg-6.25 mg Tab) busPIRone (busPIRone 7.5 mg oral tablet) cyanocobalamin (cyanocobalamin 1000 mcg/mL Inj) desogestrel-ethinyl estradiol (Apri oral tablet) ergocalciferol (ergocalciferol 50,000 intl units Cap) fluticasone nasal (Flonase 0.05 mg/inh [place]) metformin (metformin 500 mg Tab) nitrofurantoin (nitrofurantoin macrocrystals-monohy drate 100 mg Cap) semaglutide (Ozempic (1 mg dose) 4 mg/3 mL subcutaneous solution) sertraline (sertraline 50 mg Tab) Procedures Performed Cholecystectomy and exploration of bile duct (02/21/2020), Knee. Discharge Vitals Heart Rate (Peripheral) 80 Respiratory Rate 18 Blood Pressure 112/82 Height 160.0 cm Height 63 in Weight 76.2 kg Weight 167.64 lb BMI 29.77 What to do next Scheduled Follow-Up Appointments Monday 3:00 PM EDT With: Melissa Selby Where: [facility] [place] Normal [facility] CBC w/ Auto Diffon 4 Basophil Absolute 0.1 E9/L Normal 0.0-0.2 [facility] Comment on above: Performed By: #### 2 [id number], [id number] #### [facility] [address] [place] [address] Basophils/100 WBC (Bld) 0.8 % Normal 0.0-2.0 [facility] Comment on above: Performed By: #### 2 [id number], [id number] #### [facility] [address] [place] [address] Eos Absolute 0.2 E9/L Normal 0.0-0.5 [facility] Comment on above: Performed By: #### 2 [id number], [id number] #### [facility] [address] [place] [address] Eosinophils/100 WBC (Bld) 1.3 % Normal 0.0-8.0 [facility] Comment on above: Performed By: #### 2 [id number], [id number] #### [facility] [address] [place] [address] Erythrocyte distribution width (RBC) [Ratio] 15.2 % High 10.9-14.2 [facility] Comment on above: Performed By: #### 2 [id number], [id number] #### [facility] [address] [place] [address] Hematocrit (Bld) [Volume fraction] 43.0 % Normal 34.0-46.0 [facility] Comment on above: Performed By: #### 2 267400, [id number] #### [facility] [address] [place] [address] Hemoglobin (Bld) [Mass/Vol] 13.3 g/dL Normal 12.0-16.0 [facility] Comment on above: Performed By: #### 2 792808, [id number] #### [facility] [address] [place] [address] Lymph Absolute 2.3 E9/L Normal 1.0-4.0 [facility] Comment on above: Performed By: #### 2 [id number], [id number] #### [facility] [address] [place] [address] Lymphocytes/100 WBC (Bld) 18.1 % Normal 14.0-50.0 [facility] Comment on above: Performed By: #### 2 [id number], [id number] #### [facility] [address] [place] [address] MCH (RBC) [Entitic mass] 27.1 pg Normal 27.0-34.0 [facility] Comment on above: Performed By: #### 2 769850, [id number] #### [facility] [address] [place] [address] MCHC (RBC) [Mass/Vol] 31.1 g/dL Low 31.4-36.0 [facility] Comment on above: Performed By: #### 2 305328, [id number] #### [facility] [address] [place] [address] MCV (RBC) [Entitic vol] 86.9 fL Normal 80.0-100.0 [facility] Comment on above: Performed By: #### 2 [id number], [id number] #### [facility] [address] [place] [address] Frontier Absolute 1.2 E9/L High 0.2-1.0 [facility] Comment on above: Performed By: #### 2 [id number], [id number] #### [facility] [address] [place] [address] Monocytes/100 WBC (Bld) 9.5 % Normal 4.0-14.0 [facility] Comment on above: Performed By: #### 2 [id number], [id number] #### [facility] [address] [place] [address] Neutro Absolute 9.1 E9/L High 2.0-7.5 [facility] Comment on above: Performed By: #### 2 [id number], [id number] #### [facility] [address] [place] [address] Neutro Auto 70.3 % Normal 36.0-75.0 [facility] Comment on above: Performed By: #### 2 [id number], [id number] #### [facility] [address] [place] [address] Platelet 456.0 E9/L Normal 150.0-500.0 [facility] Comment on above: Performed By: #### 2 [id number], [id number] #### [facility] [address] [place] [address] Platelet mean volume (Bld) [Entitic vol] 8.4 fL Normal 6.4-10.8 [facility] Comment on above: Performed By: #### 2 [id number], [id number] #### [facility] [address] [place] [address] RBC 4.9 E12/L Normal 4.3-5.9 [facility] Comment on above: Performed By: #### 2 [id number], [id number] #### [facility] [address] [place] [address] WBC 13.0 E9/L High 4.0-11.0 [facility] Comment on above: Result Comment: [facility] with slide review Performed By: #### 2 [id number], [id number] #### [facility] [address] [place] [address] Family Medicine Office/Clini c Noteon 03-23-2023 Family Medicine Office/Clinic Note Chief Complaint weight loss medication HPI Staff Letitia is a 42 year old female presenting for 1 month follow up Weight management: Started Phentermine then switched to Ozempic 12/26/22 Sleeping well:Yes, 6-8 hours Chest pain:No Tremors:No Headaches:No Heart fluttering:No Blurred Vision:No Beginning weight: 166.82Ibs/ 75.83kg Previous weight: 164.89Ibs/ 74.95kg Today's weight:76.75 kg/168.85 lb Questions/Concerns: History of Present Illness pt presents today for follow up on blood sugars. Review of Systems PHQ Score Initial Depression Screen Score: 0 SCORE ROS - Provider Constitutional: no fever, no chills, no sweats, no fatigue Respiratory: no shortness of breath, no cough, no orthopnea, no wheezing. Cardiovascular: no chest pain, no palpitations, no edema. Neurologic: no headache, no dizziness, no numbness, no weakness. Physical Exam Vitals & Measurements HR: 68(Peripheral) BP: 122/70 SpO2: 97% HT: 63 in HT: 160 cm WT: 76.75 kg WT: 168.85 lb BMI: 29.98 General: alert, no acute distress ENMT: oral mucosa moist, no pharyngeal erythema or exudate Cardiovascular: regular rate and rhythm, normal peripheral perfusion Respiratory: Lungs CTA, respirations non labored Extremities: no deformity, no trauma Neurological: oriented x 4, LOC appropriate for age, CN II-XII intact, motor strength equal & normal bilaterally, speech normal Assessment/Plan 1. Insulin resistance (E88.819: Insulin resistance, unspecified) pt to start back on ozempic. will check HGBA1C today. since being off of ozempic for 4+ weeks (was told by another provider to not tkake it while she was sick) that her blood sugars are all over the place. since then she now has fungus in between her toes. and has struggled with oral thrush and vaginal yeast as well. pt to continue monitoring BS's and restart ozempic. RTC 3 months Ordered: CBC w/ Auto Diff HgbA1c Lab Specimen Collect [id number] 2. Elevated WBC count (D72.829: Elevated white blood cell count, unspecified) history of elevated WBC's will recheck today Ordered: CBC w/ Auto Diff HgbA1c Lab Specimen Collect [id number] 3. Fatigue (R53.83: Other fatigue) will check labs today Ordered: CBC w/ Auto Diff HgbA1c Lab Specimen Collect [id number] 4. BMI 29.0-29.9,adult (Z68.29: Body mass index [BMI] 29.0-29.9, adult) BMI education complete Ordered: CBC w/ Auto Diff HgbA1c Lab Specimen Collect [id number] Non-smoker (Z78.9: Other specified health status) continue not smoking Ordered: Misc Prescription, Freestyle Zonia 3 sensors, See Instructions, 2 kit(s), 6, change sensor every two weeks and as needed, [id number], Supply, 160, cm, 03/22/23 17:48:00 EST, Height/Length Dosing, 76.8, kg, 03/22/23 17:48:00 EST, Weight Dosing [facility] Prescription, Freestyle Zonia 3 sensors, See Instructions, 1 kit(s), 1, change sensor as needed, [id number], Supply, 160, cm, 01/18/23 17:10:00 EST, Height/Length Dosing, 92.2, kg, 01/18/23 17:10:00 EST, Weight Dosing Orders: nitrofurantoin, 100 mg = 1 cap(s), Oral, BID, X 7 day(s), # 14 cap(s), Refills(s) 0, [facility]: [id number], 160, cm, 02/15/23 17:07:00 EST, Height/Length Dosing, 75, kg, 02/15/23 17:07:00 EST, Weight Dosing Follow-up No qualifying data available Problem List/Past Medical History Ongoing Abdominal bloating Anxiety and depression Asthma BMI 29.0-29.9,adult Breast cancer screening by mammogram Cervical cancer screening Chronic GERD Congestion of throat Cough Elevated WBC count Encounter for weight management Excessive dietary caloric intake Fatigue HTN (hypertension) Insulin resistance Non-smoker Oral thrush Overweight Pernicious anemia Pharyngitis Sore throat Vitamin B12 deficiency Vitamin D deficiency Well woman exam Historical No qualifying data Procedure/Surgical History Cholecystectomy and exploration of bile duct (02/21/2020), Knee. Medications Apri oral tablet, 1 tab(s), Oral, Daily, 3 refills, Not taking bisoprolol-hydrochlo rothiazide 10 mg-6.25 mg Tab Blood glucose monitor, See Instructions blood glucose testing strips, See Instructions, 1 refills busPIRone 7.5 mg oral tablet, 7.5 mg= 1 tab(s), Oral, Daily, PRN, 3 refills cyanocobalamin 1000 mcg/mL Inj, 1000 mcg= 1 mL, SubCutaneous, qMonth, 2 refills ergocalciferol 50,000 intl units Cap, 34625 International_Unit= 1 cap(s), Oral, 2x/Wk, 2 refills Flonase 0.05 mg/inh [place], 2 spray(s), Nasal, Daily, 3 refills, Not taking Freestyle Zonia 2, See Instructions, 1 refills Freestyle Zonia 2 Sensors, See Instructions, 5 refills Freestyle Zonia 3 sensors, See Instructions, 6 refills lancets, See Instructions, 1 refills metformin 500 mg Tab, 500 mg= 1 tab(s), Oral, BID, 4 refills, Not taking needles for semaglutide pen, See Instructions, 1 refills Ozempic 2 mg/3 mL (0.25 mg or 0.5 mg dose) subcutaneous solution, 0.5 mg, SubCutaneous, qWeek, 1 refills, Not taking sertraline 100 mg (more content not included)... Normal [facility] Comment on above: Result Comment: Elec tronically Signed By: Melissa Selby\.br\Date and Time Signed: 03/23/23 12:18 EST [id number] 03-23-2023 HbA1c (Bld) [Mass fraction] 5.5 % Normal <=5.9 [facility] Comment on above: Performed By: #### 2 [id number], [id number] #### [facility] [address] [place] [address] Ambulatory Visit Summaryon 0 03-22-2023 Ambulatory Visit Summary LETITIA WEBER :1980 Visit Date:03/22/2023 Ambulatory Visit Instructions Your Diagnosis BMI 29.0-29.9,adult Insulin resistance Elevated WBC count Fatigue BMI 30.0-30.9,adult Non-smoker Tests Performed CBC w/ Auto Diff -- Results Pending -- Hemoglobin A1c -- Results Pending -- Please visit your patient portal for your results or contact your primary care physician. Your Care Team Attending Physician - Melissa Selby Primary Care Physician - Melissa Selby This Is Your Medications List Misc Prescription (Blood glucose monitor) Misc Prescription (Freestyle Zonia 2 Sensors) Misc Prescription (Freestyle Zonia 2) Misc Prescription (Freestyle Zonia 3 sensors) Misc Prescription (blood glucose testing strips) Misc Prescription (lancets) Misc Prescription (needles for semaglutide pen) bisoprolol-hydrochlo rothiazide (bisoprolol-hydrochl orothiazide 10 mg-6.25 mg Tab) busPIRone (busPIRone 7.5 mg oral tablet) cyanocobalamin (cyanocobalamin 1000 mcg/mL Inj) desogestrel-ethinyl estradiol (Apri oral tablet) ergocalciferol (ergocalciferol 50,000 intl units Cap) fluticasone nasal (Flonase 0.05 mg/inh [place]) metformin (metformin 500 mg Tab) nitrofurantoin (Macrobid 100 mg Cap) semaglutide (Ozempic 2 mg/3 mL (0.25 mg or 0.5 mg dose) subcutaneous solution) sertraline (sertraline 100 mg Tab) Procedures Performed Cholecystectomy and exploration of bile duct (02/21/2020), Knee. Discharge Vitals Heart Rate (Peripheral) 68 Blood Pressure 122/70 Height 160 cm Height 63 in Weight 76.75 kg Weight 168.85 lb BMI 29.98 What to do next Scheduled Follow-Up Appointments Monday 5:00 PM EDT With: Melissa Selby Where: [facility] C Urineon 03-18-2023 Bacteria identified Cx Nom (U) Microbiology PROCEDURE: Urine Culture [R1] SOURCE: U CleanCatch BODY SITE: COLLECTED DATE/TIME: 03/16/2023 10:05 EST RECEIVED DATE/TIME: 03/16/2023 18:17 EST START DATE/TIME: 03/16/2023 18:17 EST FREE TEXT SOURCE: Melissa Selby Jodi L FINAL REPORTS Final Report [] Verified Date/Time: 03/18/2023 08:05 EST 1,000 cfu/ml Mixed skin contaminants Performing Locations R1: This test was performed at: [facility], [address] [place] [address], [id number] , , [facility] Comment on above: Performed By: #### 2 [id number], [id number] #### [facility] [address] [place] [address] Ambulatory Visit Summaryon 0 03-15-2023 Ambulatory Visit Summary LETITIA WEBER :1980 Visit Date:03/15/2023 Ambulatory Visit Instructions Your Care Team Attending Physician - Melissa Selby Primary Care Physician - Melissa Selby This Is Your Medications List Misc Prescription (Blood glucose monitor) Misc Prescription (Freestyle Zonia 2 Sensors) Misc Prescription (Freestyle Zonia 2) Misc Prescription (Freestyle Zonia 3 sensors) Misc Prescription (blood glucose testing strips) Misc Prescription (lancets) Misc Prescription (needles for semaglutide pen) bisoprolol-hydrochlo rothiazide (bisoprolol-hydrochl orothiazide 10 mg-6.25 mg Tab) busPIRone (busPIRone 7.5 mg oral tablet) cyanocobalamin (cyanocobalamin 1000 mcg/mL Inj) desogestrel-ethinyl estradiol (Apri oral tablet) ergocalciferol (ergocalciferol 50,000 intl units Cap) fluticasone nasal (Flonase 0.05 mg/inh [place]) metformin (metformin 500 mg Tab) semaglutide (Ozempic 2 mg/3 mL (0.25 mg or 0.5 mg dose) subcutaneous solution) sertraline (sertraline 100 mg Tab) Procedures Performed Cholecystectomy and exploration of bile duct (02/21/2020), Knee. What to do next Scheduled Follow-Up Appointments Monday 5:40 PM EST With: Melissa Selby Where: [facility] [place] Normal [facility] Nurse Consultation Noteon Nurse Consultation Note Physical Exam Patient called into office stated she was having urinary frequency and urine incontinence advised patient to stop to drop of urine sample. Urinalysis shows trace of Charles Assessment/Plan Urinary frequency (R35.0: Frequency of micturition) Urine incontinence (R32: Unspecified urinary incontinence) Medications Apri oral tablet, 1 tab(s), Oral, Daily, 3 refills, Not taking bisoprolol-hydrochlo rothiazide 10 mg-6.25 mg Tab Blood glucose monitor, See Instructions blood glucose testing strips, See Instructions, 1 refills busPIRone 7.5 mg oral tablet, 7.5 mg= 1 tab(s), Oral, Daily, PRN, 3 refills cyanocobalamin 1000 mcg/mL Inj, 1000 mcg= 1 mL, SubCutaneous, qMonth, 2 refills ergocalciferol 50,000 intl units Cap, 15777 International_Unit= 1 cap(s), Oral, 2x/Wk, 2 refills Flonase 0.05 mg/inh [place], 2 spray(s), Nasal, Daily, 3 refills, Not taking Freestyle Zonia 2, See Instructions, 1 refills Freestyle Zonia 2 Sensors, See Instructions, 5 refills Freestyle Zonia 3 sensors, See Instructions, 1 refills lancets, See Instructions, 1 refills metformin 500 mg Tab, 500 mg= 1 tab(s), Oral, BID, 4 refills, Not taking needles for semaglutide pen, See Instructions, 1 refills Ozempic 2 mg/3 mL (0.25 mg or 0.5 mg dose) subcutaneous solution, 0.5 mg, SubCutaneous, qWeek, 1 refills, Not taking sertraline 100 mg Tab, 100 mg= 1 tab(s), Oral, Daily Allergies Tylenol with Codeine (Hallucinations) Immunizations Vaccine Date Status Comments influenza virus vaccine, inactivated - Not Given Patient Refuses influenza virus vaccine, inactivated - Not Given Patient Refuses SARS-CoV-2 mRNA (azeb 5y-11y) vac - Not Given Postpone due to refusal Lab Results Ambulatory Point of Care Results Bilirubin Urine Dipstick: Negative (03/15/23 16:47:00) Blood Urine Dipstick: Negative (03/15/23 16:47:00) Glucose Urine Dipstick: Negative (03/15/23 16:47:00) Ketones Urine Dipstick: Negative (03/15/23 16:47:00) Leukocytes Urine Dipstick: Trace (03/15/23 16:47:00) Nitrite Urine Dipstick: Negative (03/15/23 16:47:00) Protein Urine Dipstick: Negative (03/15/23 16:47:00) Specific Mccarley Urine Dipstick: 1.020 (03/15/23 16:47:00) Urine Appearance Urine Dipstick: Slightly cloudy (03/15/23 16:47:00) Urine Color Urine Dipstick: Light yellow (03/15/23 16:47:00) Urobilinogen Urine Dipstick: Normal 0.2-1 EU/dl (03/15/23 16:47:00) pH Urine Dipstick: 6 (03/15/23 16:47:00) Normal [facility] Ambulatory Visit Summaryon 1 04-18-2022 Ambulatory Visit Summary LETITIA WEBER :1980 Visit Date:02/15/2023 Ambulatory Visit Instructions Your Diagnosis Encounter for weight management Cough Congestion of throat BMI 29.0-29.9,adult Overweight Nonsmoker Your Care Team Attending Physician - Melissa Selby Primary Care Physician - Melissa Selby This Is Your Medications List Misc Prescription (Blood glucose monitor) Misc Prescription (Freestyle Zonia 2 Sensors) Misc Prescription (Freestyle Zonia 2) Misc Prescription (Freestyle Zonia 3 sensors) Misc Prescription (blood glucose testing strips) Misc Prescription (lancets) Misc Prescription (needles for semaglutide pen) bisoprolol-hydrochlo rothiazide (bisoprolol-hydrochl orothiazide 10 mg-6.25 mg Tab) busPIRone (busPIRone 7.5 mg oral tablet) cyanocobalamin (cyanocobalamin 1000 mcg/mL Inj) desogestrel-ethinyl estradiol (Apri oral tablet) ergocalciferol (ergocalciferol 50,000 intl units Cap) fluticasone nasal (Flonase 0.05 mg/inh [place]) metformin (metformin 500 mg Tab) semaglutide (Ozempic 2 mg/3 mL (0.25 mg or 0.5 mg dose) subcutaneous solution) sertraline (sertraline 100 mg Tab) Procedures Performed Cholecystectomy and exploration of bile duct (02/21/2020), Knee. Discharge Vitals Temperature (Oral) 36.8 ?C Heart Rate (Peripheral) 70 Respiratory Rate 14 Blood Pressure 108/70 Height 160 cm Height 63 in Weight 74.95 kg Weight 164.89 lb BMI 29.28 What to do next Scheduled Follow-Up Appointments Monday 4:40 PM EST With: Melissa Selby Where: [facility] [place] [facility] Medicine Office/Clini c Noteon 02-15-2023 Family Medicine Office/Clinic Note HPI Staff Letitia is a 42 year old female presenting for 1 month follow up Weight management: Started on Phentermine then switched to Ozempic 12/26/22 Sleeping well:Yes, 6-8 hours Chest pain:No Tremors:No Headaches:No Heart fluttering:No Blurred Vision:No Beginning weight: 75.83kg/166.82Ibs Previous weight: 77.3Kg/ 170.4Ibs Today's weight: 74.95kg/164.89lbs Questions/Concerns: In hospital feb 13 came home yesterday some type of virus, told to not take her ozempic for a month until cleared up. Had fever 104, vomiting and HR 130 gave her IV fluids and zofran for the nausea History of Present Illness pt presents today for weight management Review of Systems PHQ Score Initial Depression Screen Score: 0 SCORE ROS - Provider Constitutional: no fever, no chills, no sweats, no fatigue Respiratory: no shortness of breath, no cough, no orthopnea, no wheezing. Cardiovascular: no chest pain, no palpitations, no edema. Neurologic: no headache, no dizziness, no numbness, no weakness. Physical Exam Vitals & Measurements T: 36.8 ?C(Oral) HR: 70(Peripheral) RR: 14 BP: 108/70 SpO2: 100% HT: 63 in HT: 160 cm WT: 74.95 kg WT: 164.89 lb BMI: 29.28 General: alert, no acute distress ENMT: oral mucosa moist, no pharyngeal erythema or exudate Cardiovascular: regular rate and rhythm, normal peripheral perfusion Respiratory: Lungs CTA, respirations non labored Extremities: no deformity, no trauma Neurological: oriented x 4, LOC appropriate for age, CN II-XII intact, motor strength equal & normal bilaterally, speech normal Assessment/Plan 1. Encounter for weight management (Z76.89: Persons encountering health services in other specified circumstances) pt presents today for weight management. she was in hospital over [place] with stomach bug and dehydration. she will wait a few weeks before she starts back on ozempic Ordered: azithromycin, = 1 packet(s), Oral, As Directed, as directed on package labeling, X 5 day(s), # 6 tab(s), Refills(s) 0, [id number], 160, cm, 02/15/23 17:07:00 EST, Height/Length Dosing, 75, kg, 02/15/23 17:07:00 EST, Weight Dosing fluconazole, 150 mg = 1 tab(s), Oral, Once, # 1 tab(s), Refills(s) 0, [id number], 160, cm, 10/21/22 13:55:00 EDT, Height/Length Dosing, 73.7, kg, 10/21/22 13:55:00 EDT, Weight Dosing 2. Cough (R05.9: Cough, unspecified) will send z pack Ordered: azithromycin, = 1 packet(s), Oral, As Directed, as directed on package labeling, X 5 day(s), # 6 tab(s), Refills(s) 0, [id number], 160, cm, 02/15/23 17:07:00 EST, Height/Length Dosing, 75, kg, 02/15/23 17:07:00 EST, Weight Dosing 3. Congestion of throat (R68.89: Other general symptoms and signs) see above Ordered: azithromycin, = 1 packet(s), Oral, As Directed, as directed on package labeling, X 5 day(s), # 6 tab(s), Refills(s) 0, [id number], 160, cm, 02/15/23 17:07:00 EST, Height/Length Dosing, 75, kg, 02/15/23 17:07:00 EST, Weight Dosing 4. BMI 29.0-29.9,adult (Z68.29: Body mass index [BMI] 29.0-29.9, adult) BMI education complete Ordered: azithromycin, = 1 packet(s), Oral, As Directed, as directed on package labeling, X 5 day(s), # 6 tab(s), Refills(s) 0, Pharmacy: [id number], 160, cm, 02/15/23 17:07:00 EST, Height/Length Dosing, 75, kg, 02/15/23 17:07:00 EST, Weight Dosing 5. Overweight (E66.3: Overweight) see above Ordered: azithromycin, = 1 packet(s), Oral, As Directed, as directed on package labeling, X 5 day(s), # 6 tab(s), Refills(s) 0, Pharmacy: [id number], 160, cm, 02/15/23 17:07:00 EST, Height/Length Dosing, 75, kg, 02/15/23 17:07:00 EST, Weight Dosing 6. Nonsmoker (Z78.9: Other specified health status) continue not smoking Ordered: azithromycin, = 1 packet(s), Oral, As Directed, as directed on package labeling, X 5 day(s), # 6 tab(s), Refills(s) 0, Pharmacy: [id number], 160, cm, 02/15/23 17:07:00 EST, Height/Length Dosing, 75, kg, 02/15/23 17:07:00 EST, Weight Dosing fluconazole, 150 mg = 1 tab(s), Oral, Once, # 1 tab(s), Refills(s) 0, Pharmacy: [id number], 160, cm, 10/21/22 13:55:00 EDT, Height/Length Dosing, 73.7, kg, 10/21/22 13:55:00 EDT, Weight Dosing Orders: fluconazole, 150 mg = 1 tab(s), Oral, Once, take one tab on day one and one tab on day 4, # 2 tab(s), Refills(s) 1, [id number], 160, cm, 12/09/22 14:00:00 EDT, Height/Length Dosing, 76, kg, 12/09/22 14:00:00 EDT, Weight Dosing fluconazole, 150 mg = 1 tab(s), Oral, Once, # 1 tab(s), Refills(s) 1, [id number], 160, cm, 11/11/22 15:01:00 EDT, Height/Length Dosing, 73.5, kg, 11/11/22 15:01:00 EDT, Weight Dosing nystatin, See Instructions, TAKE 4 ML BY MOUTH EVERY 6 HOURS FOR 10 DAYS - RETAIN IN MOUTH LONG POSSIBLE BEFORE SWALLOWING, # 160 mL, Refills(s) 0, Pharmacy: [facility] [id number] [facility], 160, cm, 11/28/22 16:45:00 EDT, Height/Length Dosing, 75, kg, 11/28/22 16:45... Follow-up No qualify (more content not included)... Normal [facility] Comment on above: Result Comment: Elec tronically Signed By: Melissa Selby\.br\Date and Time Signed: 02/15/23 17:19 EST Family Medicine Office/Clini c Noteon 01-19-2023 Family Medicine Office/Clinic Note HPI Staff Letitia is a 42 year old female presenting for 1 month follow up Weight management: pt was on Phentermine and then switched to Ozempic [place] on 12/26/22 Sleeping well:Yes, 6-8 hours Chest pain:No Tremors:No Headaches:No Heart fluttering:No Blurred Vision:No Beginning weight: 166.82Ibs/75.83kg Previous weight: 162.2Ibs/73.5kg Today's weight: 77.3kg/ 170.4Ibs Questions/Concerns: none History of Present Illness pt presents today for follow up on insulin resistance was started on ozempic Review of Systems PHQ Score Initial Depression Screen Score: 0 SCORE ROS - Provider Constitutional: no fever, no chills, no sweats, no fatigue Respiratory: no shortness of breath, no cough, no orthopnea, no wheezing. Cardiovascular: no chest pain, no palpitations, no edema. Neurologic: no headache, no dizziness, no numbness, no weakness. Physical Exam Vitals & Measurements HR: 76(Peripheral) RR: 18 BP: 116/80 SpO2: 98% HT: 63 in HT: 160 cm WT: 77.3 kg WT: 170.06 lb BMI: 30.2 General: alert, no acute distress ENMT: oral mucosa moist, no pharyngeal erythema or exudate Cardiovascular: regular rate and rhythm, normal peripheral perfusion Respiratory: Lungs CTA, respirations non labored Extremities: no deformity, no trauma Neurological: oriented x 4, LOC appropriate for age, CN II-XII intact, motor strength equal & normal bilaterally, speech normal Assessment/Plan 1. Insulin resistance (E88.819: Insulin resistance, unspecified) pt feels since starting the ozempic her blood sugars have leveled out. not dropping down or shooting up as frequently. will increase dose to 0.5 mg. alll questions answered. pt went to jewelry manager and has a follow up with her in a few weeks RTC 4 weeks Ordered: semaglutide, 0.5 mg, SubCutaneous, qWeek, # 1 EA, Refills(s) 1, [id number], 160, cm, 01/18/23 17:10:00 EST, Height/Length Dosing, 92.2, kg, 01/18/23 17:10:00 EST, Weight Dosing semaglutide, 0.25 mg, SubCutaneous, qWeek, # 1 EA, Refills(s) 1, [id number], 160, cm, 12/09/22 14:00:00 EDT, Height/Length Dosing, 76, kg, 12/09/22 14:00:00 EDT, Weight Dosing 2. BMI 30.0-30.9,adult (Z68.30: Body mass index [BMI] 30.0-30.9, adult) BMI education complete Ordered: [facility] Prescription, Freestyle Zonia 3 sensors, See Instructions, 1 kit(s), 1, change sensor as needed, [id number], Supply, 160, cm, 01/18/23 17:10:00 EST, Height/Length Dosing, 92.2, kg, 01/18/23 17:10:00 EST, Weight Dosing [facility] Prescription, needles for semaglutide pen, See Instructions, 10 EA, 1, inject 0.50mg weekly, [facility], [facility], 160, cm, 01/18/23 17:10:00 EST, Height/Length Dosing, 92.2, kg, 01/18/23 17:10:00 EST, Weight Dosing sertraline, 100 mg = 1 tab(s), Oral, Daily, # 90 tab(s), Refills(s) 0, [facility]: [id number], 160, cm, 01/18/23 17:10:00 EST, Height/Length Dosing, 92.2, kg, 01/18/23 17:10:00 EST, Weight Dosing 3. Non-smoker (Z78.9: Other specified health status) continue not smoking Ordered: [facility] Prescription, Freestyle Zonia 3 sensors, See Instructions, 1 kit(s), 1, change sensor as needed, [facility], [facility], 160, cm, 01/18/23 17:10:00 EST, Height/Length Dosing, 92.2, kg, 01/18/23 17:10:00 EST, Weight Dosing [facility] Prescription, needles for semaglutide pen, See Instructions, 10 EA, 1, inject 0.50mg weekly, [facility], Supply, 160, cm, 01/18/23 17:10:00 EST, Height/Length Dosing, 92.2, kg, 01/18/23 17:10:00 EST, Weight Dosing phentermine, 37.5 mg = 1 tab(s), Oral, Daily, # 30 tab(s), Refills(s) 0, Pharmacy: [id number], 160, cm, 08/26/22 13:04:00 EDT, Height/Length Dosing, 75.8, kg, 08/26/22 13:04:00 EDT, Weight Dosing semaglutide, 0.5 mg, SubCutaneous, qWeek, # 1 EA, Refills(s) 1, Pharmacy: [id number], 160, cm, 01/18/23 17:10:00 EST, Height/Length Dosing, 92.2, kg, 01/18/23 17:10:00 EST, Weight Dosing semaglutide, 0.25 mg, SubCutaneous, qWeek, # 1 EA, Refills(s) 1, Pharmacy: [id number], 160, cm, 12/09/22 14:00:00 EDT, Height/Length Dosing, 76, kg, 12/09/22 14:00:00 EDT, Weight Dosing sertraline, 100 mg = 1 tab(s), Oral, Daily, # 90 tab(s), Refills(s) 0, Pharmacy: [place] [id number] [facility], 160, cm, 01/18/23 17:10:00 EST, Height/Length Dosing, 92.2, kg, 01/18/23 17:10:00 EST, Weight Dosing 4. Anxiety and depression (F41.9: Anxiety disorder, unspecified) hand pleater increased her dose to 100mg. Depression, unspecified (F32.A: Depression, unspecified) sertraline increase to 100mg Follow-up No qualifying data available Problem List/Past Medical History Ongoing Abdominal bloating Anxiety and depression Asthma BMI 29.0-29.9,adult Breast cancer screening by mammogram Cervical cancer screening Chronic GERD Elevated WBC count Encounter for weight management Excessive dietary caloric intake Fatigue HTN (hypertension) Insulin resistance Non-smoker Oral thrush Overweight Pernicious anemia Pharyngitis Sore throat Vitamin B12 (more content not included)... Normal [facility] Comment on above: Result Comment: Elec tronically Signed By: Melissa Selby\.br\Date and Time Signed: 01/19/23 14:07 EST Ambulatory Visit Summaryon 1 03-20-2022 Ambulatory Visit Summary LETITIA WEBER :1980 Visit Date:01/18/2023 Ambulatory Visit Instructions Your Diagnosis Insulin resistance BMI 30.0-30.9,adult Non-smoker Anxiety and depression Depression, unspecified Your Care Team Attending Physician - Melissa Selby Primary Care Physician - Melissa Selby This Is Your Medications List Misc Prescription (Blood glucose monitor) Misc Prescription (Freestyle Zonia 2 Sensors) Misc Prescription (Freestyle Zonia 2) Misc Prescription (Freestyle Zonia 3 sensors) Misc Prescription (blood glucose testing strips) Misc Prescription (lancets) Misc Prescription (needles for semaglutide pen) bisoprolol-hydrochlo rothiazide (bisoprolol-hydrochl orothiazide 10 mg-6.25 mg Tab) busPIRone (busPIRone 7.5 mg oral tablet) cyanocobalamin (cyanocobalamin 1000 mcg/mL Inj) desogestrel-ethinyl estradiol (Apri oral tablet) ergocalciferol (ergocalciferol 50,000 intl units Cap) fluconazole (Diflucan 150 mg Tab) fluconazole (fluconazole 150 mg Tab) fluconazole (fluconazole 150 mg Tab) fluticasone nasal (Flonase 0.05 mg/inh [place]) metformin (metformin 500 mg Tab) nystatin (nystatin 100,000 units/mL Oral Susp) semaglutide (Ozempic 2 mg/3 mL (0.25 mg or 0.5 mg dose) subcutaneous solution) sertraline (sertraline 100 mg Tab) Procedures Performed Cholecystectomy and exploration of bile duct (02/21/2020), Knee. Discharge Vitals Heart Rate (Peripheral) 76 Respiratory Rate 18 Blood Pressure 116/80 Height 160 cm Height 63 in Weight 77.3 kg Weight 170.06 lb BMI 30.2 What to do next Scheduled Follow-Up Appointments Monday 2:15 PM EST With: Jeremy Preciado DO Where: [facility] Monday 5:20 PM EST With: Melissa Selby Where: [facility] Medicine [facility] Physician Orderon 12-30-2022 Physician Order [id number] #1.00TIFF Normal [facility] Family Medicine Office/Clini c Noteon 12-26-2022 Family Medicine Office/Clinic Note HPI Staff Letitia is a 41 year old female presenting for 1 month follow up Weight management: Started Phentermine on 08/26/22 Sleeping well:Yes, 6-8 hours Chest pain:No Tremors:No Headaches:No Heart fluttering:No Blurred Vision:No Beginning weight: 75.83kg/166.82Ibs Previous weight: 73.5kg/161.7Ibs Today's weight: 76.0kg/ Questions/Concerns: pt states she still feels really fatigued all the time, has been walking every evening. pt states her blood sugars have sometimes been running over 200 and notify patient she is going low in the night feels more tired and shaky. pt states she has never seen endocrinology and that she does have appointment with the hand pleater next week to go over labs that were drawn they had discussed they were checking for Leukemia History of Present Illness pt presents today for follow up on fatigue. wants to start back on adipex Review of Systems PHQ Score Initial Depression Screen Score: 0 ROS - Provider Constitutional: no fever, no chills, no sweats, no fatigue Respiratory: no shortness of breath, no cough, no orthopnea, no wheezing. Cardiovascular: no chest pain, no palpitations, no edema. Neurologic: no headache, no dizziness, no numbness, no weakness. Physical Exam Vitals & Measurements HR: 86(Peripheral) RR: 18 BP: 116/80 SpO2: 98% HT: 63 in HT: 160 cm WT: 76.0 kg WT: 167.2 lb BMI: 29.69 General: alert, no acute distress ENMT: oral mucosa moist, no pharyngeal erythema or exudate Cardiovascular: regular rate and rhythm, normal peripheral perfusion Respiratory: Lungs CTA, respirations non labored Extremities: no deformity, no trauma Neurological: oriented x 4, LOC appropriate for age, CN II-XII intact, motor strength equal & normal bilaterally, speech normal Assessment/Plan 1. Insulin resistance (E88.819: Insulin resistance, unspecified) pt presents today for weight management. pt would like to start back on adipex. but her BMI is not greater than 30. pt will be referred to jewelry manager. [t continues to monitor BS. all questions answered. RTC as needed. pt scheduled to see hematology next week 2. BMI 29.0-29.9,adult (Z68.29: Body mass index [BMI] 29.0-29.9, adult) BMI education complete 3. Non-smoker (Z78.9: Other specified health status) continue not smoking Follow-up No qualifying data available Problem List/Past Medical History Ongoing Abdominal bloating Asthma BMI 29.0-29.9,adult Breast cancer screening by mammogram Cervical cancer screening Chronic GERD Elevated WBC count Encounter for weight management Excessive dietary caloric intake Fatigue HTN (hypertension) Insulin resistance Non-smoker Oral thrush Overweight Pernicious anemia Pharyngitis Sore throat Vitamin B12 deficiency Vitamin D deficiency Well woman exam Historical No qualifying data Procedure/Surgical History Cholecystectomy and exploration of bile duct (02/21/2020), Knee. Medications Apri oral tablet, 1 tab(s), Oral, Daily, 3 refills bisoprolol-hydrochlo rothiazide 10 mg-6.25 mg Tab Blood glucose monitor, See Instructions blood glucose testing strips, See Instructions, 1 refills busPIRone 7.5 mg oral tablet, 7.5 mg= 1 tab(s), Oral, Daily, PRN, 3 refills cyanocobalamin 1000 mcg/mL Inj, 1000 mcg= 1 mL, SubCutaneous, qMonth, 2 refills Diflucan 150 mg Tab, 150 mg= 1 tab(s), Oral, Once ergocalciferol 50,000 intl units Cap, 45866 International_Unit= 1 cap(s), Oral, 2x/Wk, 2 refills Flonase 0.05 mg/inh [place], 2 spray(s), Nasal, Daily, 3 refills fluconazole 150 mg Tab, 150 mg= 1 tab(s), Oral, Once, 1 refills fluconazole 150 mg Tab, 150 mg= 1 tab(s), Oral, Once, 1 refills Freestyle Zonia 2, See Instructions, 1 refills Freestyle Zonia 2 Sensors, See Instructions, 5 refills lancets, See Instructions, 1 refills metformin 500 mg Tab, 500 mg= 1 tab(s), Oral, BID, 4 refills nystatin 100,000 units/mL Oral Susp, See Instructions Ozempic 2 mg/3 mL (0.25 mg or 0.5 mg dose) subcutaneous solution, 0.25 mg, SubCutaneous, qWeek, 1 refills phentermine 37.5 mg Tab, 37.5 mg= 1 tab(s), Oral, Daily sertraline 50 mg Tab, 50 mg= 1 tab(s), Oral, Daily Allergies Tylenol with Codeine (Hallucinations) Social History Alcohol - Denies Alcohol Use, 05/23/2022 Substance Abuse - Denies Substance Abuse, 05/23/2022 Tobacco Never (less than 100 in lifetime) Tobacco Use:. Never Smokeless Tobacco Use:. Household tobacco concerns: No., 12/15/2022 Family History Family history is negative Immunizations Vaccine Date Status Comments influenza virus vaccine, inactivated - Not Given Patient Refuses influenza virus vaccine, inactivated - Not Given Patient Refuses SARS-CoV-2 mRNA (toshanicen 5y-11y) vac - Not Given Postpone due to refusal [facility] Comment on above: Result Comment: Elec tronically Signed By: Melissa Selby\.br\Date and Time Signed: 12/26/22 12:29 EST Physician Referralon 023 Physician Referral [id number] #1.00TIFF Normal [facility] Consent for Treatmenton 11-22 Consent for Treatment [id number] #1.00TIFF Normal [facility] Consent for Treatmenton 11-21 Consent for Treatment [id number] 6#1.00TIFF Normal [facility] Consent for Treatment [id number] #1.00TIFF Normal [facility] Oncology Progress Noteon Oncology Progress Note Patient: LETITIA WEBER Age: 42 years Sex: Female : 1980 Associated Diagnoses: None Author: Jeremy Preciado DO History of Present Illness Letitia is a 42 year old female with a history of asthma, vitamin B12 deficiency, GERD, leukocytosis, HTN, pernicious anemia, vitamin D deficiency and hypoglycemia. Surgical history includes knee surgery and cholecystectomy. She denies any personal or family history of cancer. She does not know a lot about her father's side; she thinks her paternal grandmother had some sort of cancer. She is referred by BETTYE Lewis for leukocytosis and fatigue. Most recent labs from August with wbc 14.8, elevated anc 10.8. Her hgb and plt are WNL. Previous chemistry panel WNL. Initial consult 11/24/22: she is very tired, has been monitoring her blood sugars at home and feels a lot more fatigued if her sugars are under 80 or over 200s. she has CGM. sometimes will have a tingling on her tongue from previous thrush denies fevers, chills, drenching night sweats or unintentional weight loss gets hot flashes. has nausea without vomiting. She has diarrhea and constipation that comes and goes since having her gallbladder removed stools look darker sometimes, but not black. Has had occult blood checked that was negative is eating and drinking ok. gets ringing in her ears, started really noticing this more in July. She feels like it's worse when her sugars are off gets headaches, which is normal for her. 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 She does note that when she is taking antibiotics, she feels great/much better than when she is not taking them. denies restless legs has regular periods each month. Are thicker than normal, only last maybe 3 days. Not heavy is on b12 injections monthly has a 21yr old daughter with downs syndrome, this is her only child. 12/15/22 mostly fatigue. she cant get up and going like she used to. She is naturally a very motivated person but this fatigue is difficult. she is struggling to keep weight off. She notes she has recurrent thrush. she notes it feels like she has tongue buring sometimes. taking metformin since this summer. [place] crappy maybe starting in may. taking sertraline for 4 or 5 years, dose is 50mg po daily. taking buspar since september. taking bisoprolol since 5 years. ozempic started last week. Review of Systems Constitutional: Fatigue, Decreased activity. Eye: Negative. Ear/Nose/Mouth/Throa t: Negative, ringing in ears. Respiratory: Negative. Cardiovascular: Negative. Gastrointestinal: Nausea, Diarrhea, Constipation. Genitourinary: Negative. Hematology/Lymphatic s: Negative. Endocrine: Negative. Immunologic: Negative. Musculoskeletal: Negative. Integumentary: Negative. Neurologic: Tingling, Headache. Psychiatric: Negative. Health Status Allergies: Allergic Reactions (Selected) Severity Not Documented Tylenol with Codeine- Hallucinations. Current medications: Home Medications (19) Active Apri oral tablet 1 tab(s), Oral, Daily bisoprolol-hydrochlo rothiazide 10 mg-6.25 mg Tab Blood glucose monitor See Instructions blood glucose testing strips See Instructions busPIRone 7.5 mg oral tablet 7.5 mg = 1 tab(s), PRN, Oral, Daily cyanocobalamin 1000 mcg/mL Inj 1,000 mcg = 1 mL, SubCutaneous, qMonth Diflucan 150 mg Tab 150 mg = 1 tab(s), Oral, Once ergocalciferol 50,000 intl units Cap 50,000 International_Unit = 1 cap(s), Oral, 2x/Wk Flonase 0.05 mg/inh [place] 2 spray(s), Nasal, Daily fluconazole 150 mg Tab 150 mg = 1 tab(s), Oral, Once fluconazole 150 mg Tab 150 mg = 1 tab(s), Oral, Once Freestyle Zonia 2 See Instructions Freestyle Zonia 2 Sensors See Instructions lancets See Instructions metformin 500 mg Tab 500 mg = 1 tab(s), Oral, BID nystatin 100,000 units/mL Oral Susp See Instructions Ozempic 2 mg/3 mL (0.25 mg or 0.5 mg dose) subcutaneous solution 0.25 mg, SubCutaneous, qWeek phentermine 37.5 mg Tab 37.5 mg = 1 tab(s), Oral, Daily sertraline 50 mg Tab 50 mg = 1 tab(s), Oral, Daily , No qualifying data available Problem list: All Problems Abdominal bloating / SNOMED CT 621832287 / Confirmed Asthma / SNOMED CT 663102628 / Confirmed Excessive dietary caloric intake / SNOMED CT 681196939 / Confirmed Cervical cancer screening / SNOMED CT 4243625600 / Confirmed Oral thrush / SNOMED CT 741271931 / Confirmed Vitamin B12 deficiency / SNOMED CT 390065064 / Confirmed Fatigue / SNOMED CT 378691671 / Confirmed Chronic GERD / SNOMED CT 224439518 / Confirmed HTN (hypertension) / SNOMED CT 4585277650 / Confirmed Hypoglycemia / SNOMED CT 750210488 / Confirmed Insulin resistance / SNOMED CT 2994627071 / Confirmed Elevated WBC count / SNOMED CT 214197016 / Confirmed Non-smoker / SNOMED CT 82785763 / Confirmed Overweight / SNOMED CT 357714970 / Confirmed BMI 29.0- (more content not included)... Normal [facility] Physician Orderon 12-13-2022 Physician Order [id number] 42#1.00TIFF [facility] Physician Referralon 023 Physician Referral [id number] 0#1.00TIFF [facility] Physician Referral [id number] 7#1.00TIFF [facility] Ambulatory Visit Summaryon 1 Ambulatory Visit Summary GUSLETITIA Onofre :1980 MRN: Visit Date:12/09/2022 Ambulatory Visit Instructions Your Diagnosis BMI 29.0-29.9,adult Non-smoker Your Care Team Attending Physician - Melissa Selby Primary Care Physician - Melissa Selby This Is Your Medications List Misc Prescription (Blood glucose monitor) Misc Prescription (Freestyle Zonia 2 Sensors) Misc Prescription (Freestyle Zonia 2) Misc Prescription (blood glucose testing strips) Misc Prescription (lancets) bisoprolol-hydrochlo rothiazide (bisoprolol-hydrochl orothiazide 10 mg-6.25 mg Tab) busPIRone (busPIRone 7.5 mg oral tablet) cyanocobalamin (cyanocobalamin 1000 mcg/mL Inj) desogestrel-ethinyl estradiol (Apri oral tablet) ergocalciferol (ergocalciferol 50,000 intl units Cap) fluconazole (Diflucan 150 mg Tab) fluconazole (fluconazole 150 mg Tab) fluticasone nasal (Flonase 0.05 mg/inh [place]) metformin (metformin 500 mg Tab) nystatin (nystatin 100,000 units/mL Oral Susp) phentermine (phentermine 37.5 mg Tab) sertraline (sertraline 50 mg Tab) Procedures Performed Cholecystectomy and exploration of bile duct (02/21/2020), Knee. Discharge Vitals Heart Rate (Peripheral) 86 Respiratory Rate 18 Blood Pressure 116/80 Height 160 cm Height 63 in Weight 76.0 kg Weight 167.2 lb BMI 29.69 What to do next Scheduled Follow-Up Appointments 2022 3:30 PM EDT With: Letitia Guardado Karla Where: Oncology Monday 2:20 PM EST With: Melissa Selby Where: [facility] [place] Normal [facility] BCR-ABL1, CML/ALL, PCR, Bobo ton 12-02-2022 Interpretation: Negative Invalid Interpretation Code [facility] Comment on above: Result Comment: NEGA TIVE for the BCR-ABL1 e1a2 (p190), e13a2 (b2a2, p210) and e14a2 (b3a2, p210) fusion transcripts. These results do not rule out the presence of rare BCR-ABL1 transcripts not detected by this assay. Performed By: #### 1 [id number], [id number], 3449532, [id number], [id number], [id number] ####[facility] [id number] [place] [address] Laboratory comment Keshav (Report) Comment Invalid Interpretation Code [facility] Comment on above: Result Comment: This assay can detect three different types of BCR-ABL1 fusion transcripts associated with CML, ALL, and AML: e13a2 (previously b2a2) and e14a2 (previously b3a2) (major breakpoint, p210), as well as e1a2 (minor breakpoint, p190). The e13a2 and e14a2 transcript values are titrated to the current International Scale (IS). The standardized baseline is 100% BCR-ABL1 (IS) and major molecular response (MMR) is equivalent to 0.1% BCR-ABL1 (IS) corresponding to a 3-log reduction. Results should be correlated with appropriate clinical and laboratory information as indicated. Performed By: #### 1 [id number], 0112156, 6589064, [id number], 1652520, 4595096 ####[facility] [id number] [place] [address] director of enterprise strategy name Nom (Provider) Comment Invalid Interpretation Code [facility] Comment on above: Result Comment: Randall Dupont, PhD, [facility] Director, Molecular Oncology [facility] [place] [address] Performed By: #### 1 [id number], [id number], 2295575, 5365374, [id number], 1733742, 3811869 ####[facility] [id number] [place] [address] Reference Lab Test Method Comment Invalid Interpretation Code [facility] Comment on above: Result Comment: Tota l RNA is isolated from the sample and subject to a real-time, reverse transcriptase polymerase chain reaction (RT-PCR). The PCR primers and probes are specific for BCR-ABL1 e13a2, e14a2 and e1a2 fusion transcripts. The ABL1 transcript is amplified as the control for cDNA quantity and quality. Serial dilutions of a validated positive control RNA with known t(9;22) BCR-ABL1 are used as reference for quantification of BCR-ABL1 relative to ABL1. The numeric BCR-ABL1 level is reported as % BCR-ABL1/ABL1 and the detection sensitivity is 4.5 log below the standard baseline (<0.0032%). This test was developed and its performance characteristics determined by [employer]. It has not been cleared or approved by the Food and Drug Administration. Performed at: [facility] [place] [email or web address] [facility] [place], [place] [id number] [facility] Performed at: [facility] [place] [email or web address] [place], [place] [id number] [facility] Performed By: #### 1 [id number], [id number], 4429619, 1201151, 32113841, 7850632, 7499411 ####[address] [place] [address] t(9;22)(q34.1;q11)(AB L1,BCR) b2a2 fusion transcript/control transcript [employer] (Bld/Tiss) [# ratio] Comment Invalid Interpretation Code [facility] Comment on above: Result Comment: <0.0 032 % Performed By: #### 1 [id number], [id number], 2771406, 5391545, 05994671, 0440080, 7246189 ####[address] [place] [address] t(9;22)(q34.1;q11)(AB L1,BCR) b3a2 fusion transcript/control transcript [employer] (Bld/Tiss) [# ratio] Comment Invalid Interpretation Code [facility] Comment on above: Result Comment: <0.0 032 % Performed By: #### 1 [id number], [id number], 2225849, 6948103, 63108751, 7358134, 6382518 ####[facility] [id number] [place] [address] t(9;22)(q34.1;q11)(AB L1,BCR) e1a2 fusion transcript/control transcript [employer] (Bld/Tiss) [# ratio] Comment Invalid Interpretation Code [facility] Comment on above: Result Comment: <0.0 032 % Performed By: #### 1 [id number], 0778922, 7532100, 83849069, 4719857, 6570695 ####[facility] [id number] [place] [address] Ambulatory Visit Summaryon 1 Ambulatory Visit Summary LETITIA WEBER :1980 Visit Date:12/01/2022 Ambulatory Visit Instructions Your Diagnosis Oral thrush BMI 29.0-29.9,adult Overweight child Your Care Team Attending Physician - Antonio Giles MD Primary Care Physician - Melissa Selby This Is Your Medications List Misc Prescription (Blood glucose monitor) Misc Prescription (Freestyle Zonia 2 Sensors) Misc Prescription (Freestyle Zonia 2) Misc Prescription (blood glucose testing strips) Misc Prescription (lancets) bisoprolol-hydrochlo rothiazide (bisoprolol-hydrochl orothiazide 10 mg-6.25 mg Tab) busPIRone (busPIRone 7.5 mg oral tablet) cyanocobalamin (cyanocobalamin 1000 mcg/mL Inj) desogestrel-ethinyl estradiol (Apri oral tablet) ergocalciferol (ergocalciferol 50,000 intl units Cap) fluconazole (Diflucan 150 mg Tab) fluconazole (fluconazole 150 mg Tab) fluticasone nasal (Flonase 0.05 mg/inh [place]) metformin (metformin 500 mg Tab) nystatin (nystatin 100,000 units/mL Oral Susp) nystatin (nystatin 100,000 units/mL Oral Susp) phentermine (phentermine 37.5 mg Tab) predniSONE (predniSONE 10 mg Tab) sertraline (sertraline 50 mg Tab) Procedures Performed Cholecystectomy and exploration of bile duct (02/21/2020), Knee. Discharge Vitals Temperature (Temporal Artery) 36.8 ?C Heart Rate (Peripheral) 80 Respiratory Rate 16 Blood Pressure 122/78 Height 160 cm Height 63 in Weight 76.2 kg Weight 167.64 lb BMI 29.77 What to do next Scheduled Follow-Up Appointments Monday 2:00 PM EDT With: Debbie RUDD Melissa Onofre Where: [facility] [place] Normal [facility] Office/Clini c Noteon 12-01-2022 Family Medicine Office/Clinic Note HPI Staff Letitia is a 41 year old female presenting for follow up urgent care to check her tongue Urgent care followup: Hospital: [facility] convenient care Visit date: 11/28/22 Symptoms the patient presented with: burning and discolored tongue Current concerns: still hurts and center of tongue green/zamora. Urgent care rxed medrol dosepak which she's still taking and Melissa had previously given her nystatin mouthwash which hasn't helped and oral flucanazole. She wonders if this is related to her blood sugars flu: refused for season History of Present Illness - See staff HPI. Review of Systems PHQ Score Initial Depression Screen Score: 1 Physical Exam Vitals & Measurements T: 36.8 ?C(Temporal Artery) HR: 80(Peripheral) RR: 16 BP: 122/78 SpO2: 97% HT: 63 in HT: 160 cm WT: 76.2 kg WT: 167.64 lb BMI: 29.77 Tongue is whitish to black in spots, no LAD, No thrush noted in the back of her throat. Assessment/Plan 1. Oral thrush (B37.0: Candidal stomatitis) I do not know if this is thrush or Black tongue. Advised brushing the tongue, good oral hygiene, mouth wash. Since this is not responding to treatment, I recommend the patient to follow up with Dentistry. Pt is agreeable 2. BMI 29.0-29.9,adult (Z68.29: Body mass index [BMI] 29.0-29.9, adult) - BMI education given 3. Overweight (E66.3: Overweight) - Diet and exercise advised. Follow-up No qualifying data available Problem List/Past Medical History Ongoing Abdominal bloating Asthma BMI 29.0-29.9,adult Breast cancer screening by mammogram Cervical cancer screening Chronic GERD Elevated WBC count Encounter for weight management Excessive dietary caloric intake Fatigue HTN (hypertension) Non-smoker Oral thrush Overweight Pernicious anemia Pharyngitis Sore throat Vitamin B12 deficiency Vitamin D deficiency Well woman exam Historical No qualifying data Procedure/Surgical History Cholecystectomy and exploration of bile duct (02/21/2020), Knee. Medications Apri oral tablet, 1 tab(s), Oral, Daily, 3 refills bisoprolol-hydrochlo rothiazide 10 mg-6.25 mg Tab Blood glucose monitor, See Instructions blood glucose testing strips, See Instructions, 1 refills busPIRone 7.5 mg oral tablet, 7.5 mg= 1 tab(s), Oral, Daily, PRN, 3 refills cyanocobalamin 1000 mcg/mL Inj, 1000 mcg= 1 mL, SubCutaneous, qMonth, 2 refills Diflucan 150 mg Tab, 150 mg= 1 tab(s), Oral, Once ergocalciferol 50,000 intl units Cap, 57722 International_Unit= 1 cap(s), Oral, 2x/Wk, 2 refills Flonase 0.05 mg/inh [place], 2 spray(s), Nasal, Daily, 3 refills fluconazole 150 mg Tab, 150 mg= 1 tab(s), Oral, Once, 1 refills Freestyle Zonia 2, See Instructions, 1 refills Freestyle Zonia 2 Sensors, See Instructions, 5 refills lancets, See Instructions, 1 refills metformin 500 mg Tab, 500 mg= 1 tab(s), Oral, BID nystatin 100,000 units/mL Oral Susp, See Instructions nystatin 100,000 units/mL Oral Susp, 272832 unit(s)= 4 mL, Oral, QID, 1 refills phentermine 37.5 mg Tab, 37.5 mg= 1 tab(s), Oral, Daily predniSONE 10 mg Tab, 10 mg= 1 tab(s), Oral, Daily sertraline 50 mg Tab, 50 mg= 1 tab(s), Oral, Daily Allergies Tylenol with Codeine (Hallucinations) Social History Alcohol - Denies Alcohol Use, 05/23/2022 Substance Abuse - Denies Substance Abuse, 05/23/2022 Tobacco Never (less than 100 in lifetime) Tobacco Use:. Never Smokeless Tobacco Use:. Household tobacco concerns: No., 12/01/2022 Family History Family history is negative Immunizations Vaccine Date Status Comments influenza virus vaccine, inactivated - Not Given Patient Refuses influenza virus vaccine, inactivated - Not Given Patient Refuses SARS-CoV-2 mRNA (tozinameran 5y-11y) vac - Not Given Postpone due to refusal Normal [facility] Comment on above: Result Comment: Elec tronically Signed By: Chan ALVES, Antonio Ivey.akira\Date and Time Signed: 12/01/22 09:27 EDT Oncology Progress Noteon Oncology Progress Note Patient: LETITIA WEBER Age: 41 years Sex: Female : 1980 Associated Diagnoses: None Author: Ghanshyam JIMENEZ-, Letitia Karla History of Present Illness Letitia is a 41 year old female with a history of asthma, vitamin B12 deficiency, GERD, leukocytosis, HTN, pernicious anemia, vitamin D deficiency and hypoglycemia. Surgical history includes knee surgery and cholecystectomy. She denies any personal or family history of cancer. She does not know a lot about her father's side; she thinks her paternal grandmother had some sort of cancer. She is referred by BETTYE Lewis for leukocytosis and fatigue. Most recent labs from August with wbc 14.8, elevated anc 10.8. Her hgb and plt are WNL. Previous chemistry panel WNL. Initial consult 11/24/22: she is very tired, has been monitoring her blood sugars at home and feels a lot more fatigued if her sugars are under 80 or over 200s sometimes will have a tingling on her tongue from previous thrush denies fevers, chills, drenching night sweats or unintentional weight loss gets hot flashes. has nausea without vomiting. She has diarrhea and constipation that comes and goes since having her gallbladder removed stools look darker sometimes, but not black. Has had occult blood checked that was negative is eating and drinking ok gets ringing in her ears, started really noticing this more in July. She feels like it's worse when her sugars are off gets headaches, which is normal for her. 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 She does note that when she is taking antibiotics, she feels great/much better than when she is not taking them. denies restless legs has regular periods each month. Are thicker than normal, only last maybe 3 days. Not heavy is on b12 injections monthly Review of Systems Constitutional: Fatigue, Decreased activity. Eye: Negative. Ear/Nose/Mouth/Throa t: Negative, ringing in ears. Respiratory: Negative. Cardiovascular: Negative. Gastrointestinal: Nausea, Diarrhea, Constipation. Genitourinary: Negative. Hematology/Lymphatic s: Negative. Endocrine: Negative. Immunologic: Negative. Musculoskeletal: Negative. Integumentary: Negative. Neurologic: Tingling, Headache. Psychiatric: Negative. Health Status Allergies: Allergic Reactions (Selected) Severity Not Documented Tylenol with Codeine- Hallucinations. Current medications: Home Medications (17) Active Apri oral tablet 1 tab(s), Oral, Daily bisoprolol-hydrochlo rothiazide 10 mg-6.25 mg Tab Blood glucose monitor See Instructions blood glucose testing strips See Instructions busPIRone 7.5 mg oral tablet 7.5 mg = 1 tab(s), PRN, Oral, Daily cyanocobalamin 1000 mcg/mL Inj 1,000 mcg = 1 mL, SubCutaneous, qMonth Diflucan 150 mg Tab 150 mg = 1 tab(s), Oral, Once ergocalciferol 50,000 intl units Cap 50,000 International_Unit = 1 cap(s), Oral, 2x/Wk Flonase 0.05 mg/inh [place] 2 spray(s), Nasal, Daily fluconazole 150 mg Tab 150 mg = 1 tab(s), Oral, Once Freestyle Zonia 2 See Instructions Freestyle Zonia 2 Sensors See Instructions lancets See Instructions metformin 500 mg Tab 500 mg = 1 tab(s), Oral, BID nystatin 100,000 units/mL Oral Susp 400,000 unit(s) = 4 mL, Oral, QID phentermine 37.5 mg Tab 37.5 mg = 1 tab(s), Oral, Daily sertraline 50 mg Tab 50 mg = 1 tab(s), Oral, Daily , No qualifying data available Problem list: All Problems Abdominal bloating / SNOMED CT 495786637 / Confirmed Asthma / SNOMED CT 473826162 / Confirmed Excessive dietary caloric intake / SNOMED CT 790472251 / Confirmed Cervical cancer screening / SNOMED CT 1342383808 / Confirmed Oral thrush / SNOMED CT 326026264 / Confirmed Vitamin B12 deficiency / SNOMED CT 294654087 / Confirmed Fatigue / SNOMED CT 263867536 / Confirmed Chronic GERD / SNOMED CT 331352144 / Confirmed HTN (hypertension) / SNOMED CT 5014235731 / Confirmed Hypoglycemia / SNOMED CT 928927716 / Confirmed Elevated WBC count / SNOMED CT 520123572 / Confirmed Non-smoker / SNOMED CT 47974711 / Confirmed BMI 29.0-29.9,adult / SNOMED CT 0315318178 / Confirmed Well woman exam / SNOMED CT 020820323 / Confirmed Breast cancer screening by mammogram / SNOMED CT 168226961 / Confirmed Encounter for weight management / SNOMED CT 501798291 / Confirmed Pernicious anemia / SNOMED CT 896641623 / Confirmed Vitamin D deficiency / SNOMED CT 09568024 / Confirmed Histories Past Medical History: No active or resolved past medical history items have been selected or recorded. Family History: Entire family history is negative. Procedure history: Cholecystectomy and exploration of bile duct ([id number]) on 02/21/2020 at 39 Years. Knee ([id number]). Comments: 11/24/2022 13:01 KEVIN - Lizzette Stratton surgery Social History Social & Psychosocial Habits Alcohol 11/24/2022 Risk Assessment: Denies Alcohol Us (more content not included)... Normal [facility] Grp A Strp PCRon 11-29-2022 Group A Strep Negative Normal [facility] Comment on above: Result Comment: Test ing performed using DNA amplification. Performed By: #### 1 [id number] #### [facility] [address] [place] [address] Grp A Strp Intrl Ctrl Pass Normal [facility] Comment on above: Performed By: #### 1 [id number] #### [facility] [address] [place] [address] Ambulatory Visit Summaryon Ambulatory Visit Summary LETITIA WEBER :1980 Visit Date:11/28/2022 Ambulatory Visit Instructions Your Diagnosis Pharyngitis BMI 29.0-29.9,adult Your Care Team Attending Physician - NEHEMIAS BROWN, DARWIN Primary Care Physician - Melissa Selby This Is Your Medications List Misc Prescription (Blood glucose monitor) Misc Prescription (Freestyle Zonia 2 Sensors) Misc Prescription (Freestyle Zonia 2) Misc Prescription (blood glucose testing strips) Misc Prescription (lancets) bisoprolol-hydrochlo rothiazide (bisoprolol-hydrochl orothiazide 10 mg-6.25 mg Tab) busPIRone (busPIRone 7.5 mg oral tablet) cyanocobalamin (cyanocobalamin 1000 mcg/mL Inj) desogestrel-ethinyl estradiol (Apri oral tablet) ergocalciferol (ergocalciferol 50,000 intl units Cap) fluconazole (Diflucan 150 mg Tab) fluconazole (fluconazole 150 mg Tab) fluticasone nasal (Flonase 0.05 mg/inh [place]) metformin (metformin 500 mg Tab) nystatin (nystatin 100,000 units/mL Oral Susp) phentermine (phentermine 37.5 mg Tab) sertraline (sertraline 50 mg Tab) Procedures Performed Cholecystectomy and exploration of bile duct (02/21/2020), Knee. 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 Portions of this record may have been created with voice recognition artificial intelligence software, specifically [employer], [employer] and or [employer]. Substitutions may have occurred due to the inherent limitations of voice recognition and artificial intelligence software. Patient is a 41-year-old female present convenient care, for sore throat, rash on her tongue with pain, increased pain with swallowing, able to eat and drink, no difficulty swallowing. Patient states she has certain symptoms like previously last month, diagnosed with thrush, was given nystatin, she has some improvement, at the medication wore off she had the symptoms again, ago episode started not too long ago, states primary care doctor is out of town, patient states she is diabetic, she is on metformin, but also her blood glucose levels are low, not high. Patient denies any fevers, chills, nausea or vomiting, difficulty swallowing, cough, chest pain, shortness of breath, angioedema, swollen tongue, or facial paresthesias. Review of Systems PHQ Score Initial Depression Screen Score: 0 Physical Exam Vitals & Measurements T: 36.7 ?C(Oral) HR: 86(Peripheral) BP: 122/78 SpO2: 98% HT: 63 in HT: 160 cm WT: 75 kg WT: 165 lb BMI: 29.3 General: Well developed, well nourished, in no acute distress, does not appear ill or septic. No respiratory disorders noted. Patient answers questions appropriately and in complete sentences, and follows commands appropriately. Head: Normocephalic/atraum atic, no upper respiratory infections noted. Eyes: Pupils equal, round, and reactive to light. Conjunctivae and sclerae normal, Ears: Bilateral TMs are bulging, with no signs otitis media, right greater than left, no signs of otitis externa. Hearing is intact. Mouth: Tongue has a rash, midline, grayish color concerning for thrush, posterior oropharynx with erythema without exudates or enlarged tonsils. Hard and soft palates are within normal limits. No trismus or difficulty swallowing is noted. Neck: Neck supple. No masses or palpable cervical nodes. Trachea midline. Lungs: Normal respiratory effort and clear to auscultation throughout, no wheezing, no rales Cardio: regular rate and rhythm, no murmur Extremity: Patient is able move all 4 extremities equally well no pain or weakness. Patient is neurovascular intact. Neurologic: Grossly normal Skin: Skin is intact skin abrasions, rashes, or ecchymosis. Lymph Nodes: no lad Mental Status: alert, active Assessment/Plan Discuss with patient negative strep throat result. 41-year-old female presented to convenient care, for pharyngitis and oral thrush, patient currently being treated for oral thrush with nystatin, states he is using nystatin as previously prescribed, currently on Diflucan, has used Diflucan has symptom relief for approximately a day, symptoms return worsening, patient will need to hold off on on nystatin try prednisone for about a week, hopefully this will help the patient, with the pain, has been able to eat and drink, has no respiratory disorder, no difficulty swallowing. Patient is instructed to monitor her blood glucose level least 2-3 times a day, any high values, cut back on carbohydrates. Patient agrees with the plan. 1. Pharyngitis (J02.9: Acute pharyngitis, unspecified) See above Ordered: predniSONE, 10 mg = 1 tab(s), Oral, Daily, X 7 day(s), # 7 tab(s), Refills(s) 0, Pharmacy: [place] [id number] [facility], 160, cm, 11/28/22 16:45:00 EDT, Height/Length Dosing, 75, kg, 11/28/22 16:45:00 EDT, Weight Dosing Group A Strep by PCR Rapid Strep POC 07274 2. Oral thrush (B37.0: Candidal stomatitis) See above 3. BMI 29.0-29.9,adult (Z68.29: Body mass index [BMI] 29.0-29.9, adult) The standard range for ages 18 and older is >=18.5 and < 25 kg/m2. Your BMI today was above this range, this falls in the overweight to obese category and there are medical benefits to weight loss. We can offer counselling, referral, and/or medical support in addressing this problem. Your BMI and weight management will be followed at subsequent visits. Ordered: Body Mass Index (BMI) documented 3008F Follow-up With When Contact Information Debbie RUDD, Melissa Adhikari, DANIEL, MED Additional Instructions: Patient Education BMI for Adults Oral Thrush, Adult, Evan-gg-Ughm Pharyngitis, Cozw-zk-Ddcq Problem List/Past Medical History Ongoing Abdominal bloating Asthma BMI 29.0-29.9,adult Breast cancer screening by mammogram Cervical cancer screening (more content not included)... Normal [facility] Comment on above: Result Comment: Elec tronically Signed By: NEHEMIAS BROWN, DARWIN\.br\Date and Time Signed: 11/28/22 17:47 EDT Patient Educationon 11-29-19 Patient Education Infectious Disease Oral Thrush, Adult Oral thrush is an infection in your mouth and throat and on your tongue. It causes white patches to form in your mouth and on your tongue. Many cases of thrush are mild. But, sometimes, thrush can be serious. People who have a weak body defense system (immune system) or other diseases can be affected more. What are the causes? This condition is caused by a type of fungus called yeast. The fungus is normally present in small amounts in the mouth and nose. If a person has a long-term illness or a weak body defense system, the fungus can grow and spread quickly. This causes thrush. What increases the risk? You are more likely to develop this condition if: ? You have a weak body defense system. ? You are an older adult. ? You have diabetes, cancer, or HIV. ? You have a dry mouth. ? You are or . ? You do not take good care of your teeth. This risk is greater for people who have false teeth (dentures). ? You use antibiotic or steroid medicines. What are the signs or symptoms? Symptoms of this condition include: ? A burning feeling in the mouth and throat. ? White patches that stick to the mouth and tongue. ? A bad taste in the mouth or trouble tasting foods. ? A feeling like you have cotton in your mouth. ? Pain when you eat and swallow. ? Not wanting to eat as much as usual. ? Cracking at the corners of the mouth. How is this treated? This condition is treated with medicines called antifungals. These medicines prevent a fungus from growing. The medicines are either put right on the area (topical) or swallowed (oral). Your doctor will also treat other problems that you may have, such as diabetes or HIV. Follow these instructions at home: Helping with pain and soreness To lessen your pain: ? Drink cold liquids, like water and iced tea. ? Eat frozen ice pops or frozen juices. ? Eat foods that are easy to swallow, like gelatin and ice cream. ? Drink from a straw if you have too much pain in your mouth. General instructions ? Take or use dpkz-acc-qulravu and prescription medicines only as told by your doctor. ? Eat plain yogurt that has live cultures in it. Read the label to make sure that there are live cultures in your yogurt. ? If you wear false teeth: ? Take them out before you go to bed. ? [place] them well. ? Soak them in a street light lamp cleaner. ? Rinse your mouth with warm salt-water many times a day. To make the salt-water mixture, dissolve ??1 teaspoon (3?6 g) of salt in 1 cup (237 mL) of warm water. Contact a doctor if: ? Your problems do not get better within 7 days of treatment. ? Your infection is spreading. This may show as white areas on the skin outside of your mouth. ? You are nursing your baby and you have redness and pain in the nipples. Summary ? Oral thrush is an infection in your mouth and throat. It is caused by a fungus. ? You are more likely to get this condition if you have a weak body defense system. Diseases like diabetes, cancer, or HIV also add to your risk. ? This condition is treated with medicines called antifungals. ? Contact a doctor if you do not get better within 7 days of starting treatment. This information is not intended to replace advice given to you by your health care provider. Make sure you discuss any questions you have with your health care provider. Document Revised: 10/06/2021 Document Reviewed: 12/13/2019 [employer] Patient Education ? 2022 [employer]. Pharyngitis Pharyngitis is a sore throat (pharynx). This is when there is redness, pain, and swelling in your throat. Most of the time, this condition gets better on its own. In some cases, you may need medicine. What are the causes? ? An infection from a virus. ? An infection from bacteria. ? Allergies. What increases the risk? ? Being 5?24 years old. ? Being in crowded environments. These include: ? Daycares. ? Schools. ? Dormitories. ? Living in a place with cold temperatures outside. ? Having a weakened disease-fighting (immune) system. What are the signs or symptoms? Symptoms may vary depending on the cause. Common symptoms include: ? Sore throat. ? Tiredness (fatigue). ? Low-grade fever. ? Stuffy nose. ? Cough. ? Headache. Other symptoms may include: ? Glands in the neck (lymph nodes) that are swollen. ? Skin rashes. ? Film on the throat or tonsils. This can be caused by an infection from bacteria. ? Vomiting. ? Red, itchy eyes. ? Loss of appetite. ? Joint pain and muscle aches. ? Tonsils that are temporarily bigger than usual (enlarged). How is this treated? Many times, treatment is not needed. This condition usually gets better in 3?4 days without treatment. If the infection is caused by a bacteria, you may be need to take antibiotics. Follow these instructions at home: Medicines ? (more content not included)... Normal [facility] Auto Diffon 11-25-2022 Basophils/100 WBC (Bld) 0.4 % Normal 0.0-2.0 [facility] Comment on above: Order Comment: Order Added by Discern Expert. Performed By: #### 1 [id number], 8550057, 7791882, 8456597, 37649493, 2966511, 9323865 ####[facility] [address] [place] [address] Basophils/Leukocytes Auto (Bld) [Pure # fraction] 0.1 E9/L Normal 0.0-0.2 [facility] Comment on above: Order Comment: Order Added by Discern Expert. Performed By: #### 1 [id number], 9677056, 7634784, 9260915, 87199593, 2365185, 4191032 ####[facility] [address] [place] [address] Eosinophils/100 WBC (Bld) 1.4 % Normal 0.0-8.0 [facility] Comment on above: Order Comment: Order Added by Discern Expert. Performed By: #### 1 [id number], 4255313, 5086814, 3007729, 11856832, 7469554, 4173227 ####[facility] [address] [place] [address] Eosinophils/Leukocyte s Auto (Bld) [Pure # fraction] 0.2 E9/L Normal 0.0-0.5 [facility] Comment on above: Order Comment: Order Added by Sanam Expert. Performed By: #### 1 [id number], 1032437, 0797240, 0428675, 46492966, 4912206, 4521204 ####[address] [place] [address] Lymphocytes/100 WBC (Bld) 24.1 % Normal 14.0-50.0 [facility] Comment on above: Order Comment: Order Added by Discern Expert. Performed By: #### 1 [id number], 1714886, 8510342, 6205875, 88956163, 5949323, 2588471 ####[address] [place] [address] Lymphocytes/Leukocyte s Auto (Bld) [Pure # fraction] 2.9 E9/L Normal 1.0-4.0 [facility] Comment on above: Order Comment: Order Added by Sanam Expert. Performed By: #### 1 [id number], 3212456, 9824790, 3690805, 24469176, 3940158, 1704347 ####[address] [address] Monocytes/100 WBC (Bld) 9.5 % Normal 4.0-14.0 [facility] Comment on above: Order Comment: Order Added by Sanam Expert. Performed By: #### 1 [id number], 2373970, 0011413, 7017340, 04582115, 8210162, 1635988 ####[address] [place] [address] Monocytes/Leukocytes Auto (Bld) [Pure # fraction] 1.1 E9/L High 0.2-1.0 [facility] Comment on above: Order Comment: Order Added by Sanam Expert. Performed By: #### 1 [id number], 1823871, 9228003, 6635183, 76353534, 5628051, 5634017 ####[address] [place] [address] Neutrophils/100 WBC (Bld) 64.6 % Normal 36.0-75.0 [facility] Comment on above: Order Comment: Order Added by Discern Expert. Performed By: #### 1 [id number], 0221643, 8370468, 8266417, 88323668, 1279062, 9914993 ####[facility] [address] [place] [address] Neutrophils/Leukocyte s Auto (Bld) [Pure # fraction] 7.7 E9/L High 2.0-7.5 [facility] Comment on above: Order Comment: Order Added by Discern Expert. Performed By: #### 1 [id number], 0296217, 7013157, 1291755, 83233336, 5997256, 9702335 ####[address] [place] [address] CBC w/ Auto Diffon 3 Erythrocyte distribution width (RBC) [Ratio] 14.5 % High 10.9-14.2 [facility] Comment on above: Performed By: #### 1 [id number], 2942855, 0504698, 2492952, 08052699, 5792501, 5723678 ####[address] [place] [address] Hematocrit (Bld) [Volume fraction] 42.0 % Normal 34.0-46.0 [facility] Comment on above: Performed By: #### 1 [id number], 9805374, 7443879, 9679980, 93540437, 8281932, 9521544 ####[facility] [address] [place] [address] Hemoglobin (Bld) [Mass/Vol] 13.6 g/dL Normal 12.0-16.0 [facility] Comment on above: Performed By: #### 1 [id number], 3256518, 6006322, 9796063, 38671243, 5581729, 2976175 ####[facility] [address] [place] [address] MCH (RBC) [Entitic mass] 26.9 pg Low 27.0-34.0 [facility] Comment on above: Performed By: #### 1 [id number], 2582530, 3385217, 4519242, 40429747, 7454765, 0757836 ####[facility] [address] [place] [address] MCHC (RBC) [Mass/Vol] 32.3 g/dL Normal 31.4-36.0 [facility] Comment on above: Performed By: #### 1 [id number], 3498903, 4424573, 3879703, 70382259, 9609260, 6686160 ####[facility] [address] [place] [address] MCV (RBC) [Entitic vol] 83.4 fL Normal 80.0-100.0 [facility] Comment on above: Performed By: #### 1 [id number], 8626658, 4277760, 7521524, 67843568, 0216755, 4006968 ####[address] [address] Platelet mean volume (Bld) [Entitic vol] 7.9 fL Normal 6.4-10.8 [facility] Comment on above: Performed By: #### 1 [id number], 8175732, 9660174, 8713609, 37209175, 0312982, 5431590 ####[address] [place] [address] Platelets (Bld) [#/Vol] 455.0 E9/L Normal 150.0-500.0 [facility] Comment on above: Performed By: #### 1 [id number], 4778453, 5394605, 9001151, 53416698, 3712785, 9212068 ####[address] [place] [address] RBC (Bld) [#/Vol] 5.0 E12/L Normal 4.3-5.9 [facility] Comment on above: Performed By: #### 1 [id number], 8637398, 7890549, 3030630, 58201319, 3302291, 6397448 ####[facility] [address] [place] [address] WBC corrected for nucl RBC Auto (Bld) [#/Vol] 12.0 E9/L High 4.0-11.0 [facility] Comment on above: Performed By: #### 1 [id number], 3483251, 5967642, 3019516, 72588154, 9792952, 5064957 ####[address] [place] [address] CMPon 11-25-2022 Albumin [Mass/Vol] 3.8 g/dL Normal 3.3-5.0 [facility] Comment on above: Performed By: #### 1 [id number], 0210218, 5918549, 4014598, 35374945, 8946222, 0819514 ####[address] [place] [address] Albumin/Globulin (S) [Mass conc ratio] 1.1 Normal 1.1-2.2 [facility] Comment on above: Performed By: #### 1 [id number], 2115015, 5050065, 6113588, 89178606, 5799890, 0120853 ####[address] [place] [address] ALP [Catalytic activity/Vol] 96 Int._Unit/L Normal 21-98 [facility] Comment on above: Performed By: #### 1 [id number], 9982005, 8399733, 3297996, 65198875, 6127687, 1151821 ####[address] [place] [address] ALT No additional P-5'-P [Catalytic activity/Vol] 28 Int._Unit/L Normal 6-46 [facility] Comment on above: Performed By: #### 1 [id number], 7778678, 2032440, 2882116, 76709141, 7705682, 3520857 ####[address] [place] [address] Anion gap [Moles/Vol] 12 mmol/L Normal 6-16 [facility] Comment on above: Performed By: #### 1 [id number], 6341164, 5913141, 9330875, 98046609, 9816663, 8880181 ####[facility] [address] [place] [address] AST [Catalytic activity/Vol] 26 Int._Unit/L Normal 5-43 [facility] Comment on above: Performed By: #### 1 [id number], 8394461, 0745769, 7563131, 93292988, 0509243, 2051064 ####[facility] [address] [place] [address] Bilirubin [Mass/Vol] 0.3 mg/dL Normal 0.0-1.1 [facility] Comment on above: Performed By: #### 1 [id number], 4572706, 7474393, 0233507, 60650587, 5500703, 6830939 ####[facility] [address] [place] [address] Calcium [Mass/Vol] 9.1 mg/dL Normal 8.9-11.1 [facility] Comment on above: Performed By: #### 1 [id number], 8138894, 8333341, 0696063, 79841375, 4422899, 1980528 ####[facility] [address] [place] [address] Chloride [Moles/Vol] 104 mmol/L Normal 101-111 [facility] Comment on above: Performed By: #### 1 [id number], 1483790, 4834183, 7127216, 29085904, 0357047, 3664418 ####[facility] [address] [place] [address] CO2 [Moles/Vol] 27 mmol/L Normal 21-31 [facility] Comment on above: Performed By: #### 1 [id number], 9413383, 4354584, 7974151, 09497179, 5756287, 5420957 ####[facility] [address] [place] [address] Creatinine [Mass/Vol] 0.9 mg/dL Normal 0.5-1.3 [facility] Comment on above: Performed By: #### 1 [id number], 7445653, 5440034, 7167764, 24327818, 5301460, 6437097 ####[facility] [address] [place] [address] Globulin (S) [Mass/Vol] 3.5 g/dL Normal 1.4-4.0 [facility] Comment on above: Performed By: #### 1 [id number], 5588823, 7497605, 0376114, 24236257, 0050999, 1225183 ####[facility] [address] [place] [address] Glucose [Mass/Vol] 85 mg/dL Normal 55-199 [facility] Comment on above: Result Comment: If t his glucose result represents a fasting glucose, interpretation should refer to the following reference range: 55-99 mg/dL Performed By: #### 1 [id number], 0785702, 3216645, 8264896, 33185357, 0428929, 9581107 ####[facility] [address] [place] [address] Potassium [Moles/Vol] 3.7 mmol/L Normal 3.5-5.3 [facility] Comment on above: Performed By: #### 1 [id number], 6567620, 3100662, 2393732, 29138100, 0226177, 3438275 ####[facility] [address] [place] [address] Protein [Mass/Vol] 7.3 g/dL Normal 6.0-7.8 [facility] Comment on above: Performed By: #### 1 [id number], 4234958, 6515889, 1153902, 08714537, 6114992, 9937047 ####[facility] [address] [place] [address] Sodium [Moles/Vol] 139 mmol/L Normal 135-145 [facility] Comment on above: Performed By: #### 1 [id number], 9262698, 8484395, 2956190, 48982656, 4801193, 0699794 ####[facility] [address] [place] [address] Urea nitrogen [Mass/Vol] 14 mg/dL Normal - [facility] Comment on above: Performed By: #### 1 [id number], 0052914, 6150406, 4709091, 98413701, 6685521, 4526394 ####[facility] [address] [place] [address] Urea nitrogen/Creatinine [Mass ratio] 16 No Units Normal - [facility] Comment on above: Performed By: #### 1 [id number], 2585975, 8985661, 1075583, 38113799, 6631200, 0701821 ####[facility] [address] [place] [address] Consent for Treatmenton Consent for Treatment [id number] 31 [id number] #1.00TIFF Normal [facility] Folateon 11-25-2022 Folate [Mass/Vol] 21.1 ng/mL Normal >=6.7 [facility] Comment on above: Performed By: #### 1 [id number], 7927613, 7160216, 7829826, 91689722, 3320564, 5558558 ####[facility] [address] [place] [address] TSHon 11-25-2022 TSH Qn 2.50 m[IU]/L Normal 0.34-5.60 [facility] Comment on above: Performed By: #### 1 [id number], 9416533, 3373233, 5637729, 97627540, 9802585, 7894270 ####[facility] [address] [place] [address] eGFRon 11-25-2022 GFR/1.73 sq M.predicted among non-blacks MDRD (S/P/Bld) [Vol rate/Area] 82 mL/min/1.73 m2 Normal >=59 [facility] Comment on above: Order Comment: Order added by Discern Expert. Result Comment: Job Counselor lonnie kidney disease could be indicated at eGFR's of less than 60 mL/min/1.73m2. Kidney failure is indicated at less than 15 mL/min/1.73m2. Performed By: #### 1 [id number], 7001396, 8193357, 0305756, 94208859, 0967856, 7959245 ####[facility] [address] [place] [address] Consent for Treatmenton Consent for Treatment [id number] 31 [id number] #1.00TIFF Normal [facility] Ambulatory Visit Summaryon 0 11-11-2022 Ambulatory Visit Summary LETITIA WEBER :1980 Visit Date:11/11/2022 Ambulatory Visit Instructions Your Diagnosis Hypoglycemia Oral thrush BMI 28.0-28.9,adult Non-smoker Your Care Team Attending Physician - Melissa Selby Primary Care Physician - Melissa Selby This Is Your Medications List Misc Prescription (Blood glucose monitor) Misc Prescription (Freestyle Zonia 2 Sensors) Misc Prescription (Freestyle Zonia 2) Misc Prescription (blood glucose testing strips) Misc Prescription (lancets) bisoprolol-hydrochlo rothiazide (bisoprolol-hydrochl orothiazide 10 mg-6.25 mg Tab) busPIRone (busPIRone 7.5 mg oral tablet) cyanocobalamin (cyanocobalamin 1000 mcg/mL Inj) desogestrel-ethinyl estradiol (Apri oral tablet) ergocalciferol (ergocalciferol 50,000 intl units Cap) fluconazole (Diflucan 150 mg Tab) fluconazole (fluconazole 150 mg Tab) fluticasone nasal (Flonase 0.05 mg/inh [place]) metformin (metformin 500 mg Tab) nystatin (nystatin 100,000 units/mL Oral Susp) phentermine (phentermine 37.5 mg Tab) phentermine (phentermine 37.5 mg Tab) sertraline (sertraline 50 mg Tab) Procedures Performed Cholecystectomy and exploration of bile duct (02/21/2020). Discharge Vitals Heart Rate (Peripheral) 98 Respiratory Rate 18 Blood Pressure 138/78 Height 160 cm Height 63 in Weight 73.5 kg Weight 161.7 lb BMI 28.71 What to do next Scheduled Follow-Up Appointments 2022 1:00 PM EDT With: Ghanshyam REYES, Letitia Karla Where: [facility] Monday 2:00 PM EDT With: Melissa Selby Where: [facility] Medicine Office/Clini c Noteon 11-11-2022 Family Medicine Office/Clinic Note HPI Staff Letitai is a 41 year old female presenting for 1 month follow up weight management OV 10/21/22 weight 73.7kg/162.14Ibs, started on Phentermine on 08/26/22 Today weight: 162.2Ibs/73.5kg Fatigue: was referred to Hematology pt had heard from them last OV 10/21/22 -Pt has appointment with Hematology November 24 at 1pm Hypoglycemia: OV 10/21/22 pt was to keep log for blood sugars -pt has blood glucose meter with her. today while sitting in office BS 204 pt has meter alert when she falls below 80 and she will eat something patient states she isn't feeling at tired in the mornings. History of Present Illness ROS - Provider Constitutional: no fever, no chills, no sweats, yes fatigue Respiratory: no shortness of breath, no cough, no orthopnea, no wheezing. Cardiovascular: no chest pain, no palpitations, no edema. Neurologic: no headache, no dizziness, no numbness, no weakness. white sore tongue Review of Systems PHQ Score Initial Depression Screen Score: 0 ROS - Provider Constitutional: no fever, no chills, no sweats, no fatigue Respiratory: no shortness of breath, no cough, no orthopnea, no wheezing. Cardiovascular: no chest pain, no palpitations, no edema. Neurologic: no headache, no dizziness, no numbness, no weakness. Physical Exam Vitals & Measurements HR: 98(Peripheral) RR: 18 BP: 138/78 SpO2: 98% HT: 63 in HT: 160 cm WT: 73.5 kg WT: 161.7 lb BMI: 28.71 General: alert, no acute distress ENMT: oral mucosa moist, no pharyngeal erythema or exudate Cardiovascular: regular rate and rhythm, normal peripheral perfusion Respiratory: Lungs CTA, respirations non labored Extremities: no deformity, no trauma Neurological: oriented x 4, LOC appropriate for age, CN II-XII intact, motor strength equal & normal bilaterally, speech normal Assessment/Plan 1. Hypoglycemia (E16.2: Hypoglycemia, unspecified) pt has iRewardChart zonia to monitor glucose. she has had some drop to the 60's and was symptomatic. she started eating a larger snack before bed and says that seemed to help. RTC 4 weeks. pt is scheduled with hematology in 2 weeks 2. Oral thrush (B37.0: Candidal stomatitis) pt has oral thrush will send nystatin and Diflucan 3. BMI 28.0-28.9,adult (Z68.28: Body mass index [BMI] 28.0-28.9, adult) BMI eduction complete 4. Non-smoker (Z78.9: Other specified health status) continue not smoking Orders: fluconazole, 150 mg = 1 tab(s), Oral, Once, # 1 tab(s), Refills(s) 1, Pharmacy: [email or web address], 160, cm, 11/11/22 15:01:00 EDT, Height/Length Dosing, 73.5, kg, 11/11/22 15:01:00 EDT, Weight Dosing nystatin, 400,000 unit(s) = 4 mL, Oral, QID, TAKE 4 ML BY MOUTH EVERY 6 HOURS FOR 10 DAYS - RETAIN IN MOUTH LONG POSSIBLE BEFORE SWALLOWING, X 10 day(s), # 160 mL, Refills(s) 1, Pharmacy: [email or web address], 160, cm, 11/11/22 15:01:00 EDT, Height/Length... Follow-up No qualifying data available Problem List/Past Medical History Ongoing Abdominal bloating Asthma BMI 29.0-29.9,adult Breast cancer screening by mammogram Cervical cancer screening Chronic GERD Elevated WBC count Encounter for weight management Excessive dietary caloric intake Fatigue HTN (hypertension) Non-smoker Oral thrush Pernicious anemia Vitamin B12 deficiency Vitamin D deficiency Well woman exam Historical No qualifying data Procedure/Surgical History Cholecystectomy and exploration of bile duct (02/21/2020). Medications Apri oral tablet, 1 tab(s), Oral, Daily, 3 refills bisoprolol-hydrochlo rothiazide 10 mg-6.25 mg Tab Blood glucose monitor, See Instructions blood glucose testing strips, See Instructions, 1 refills busPIRone 7.5 mg oral tablet, 7.5 mg= 1 tab(s), Oral, Daily, PRN, 3 refills cyanocobalamin 1000 mcg/mL Inj, 1000 mcg= 1 mL, SubCutaneous, qMonth, 2 refills Diflucan 150 mg Tab, 150 mg= 1 tab(s), Oral, Once ergocalciferol 50,000 intl units Cap, 827[address] International_Unit= 1 cap(s), Oral, 2x/Wk, 2 refills Flonase 0.05 mg/inh [place], 2 spray(s), Nasal, Daily, 3 refills fluconazole 150 mg Tab, 150 mg= 1 tab(s), Oral, Once, 1 refills Freestyle Zonia 2, See Instructions, 1 refills Freestyle Zonia 2 Sensors, See Instructions, 5 refills lancets, See Instructions, 1 refills metformin 500 mg Tab, 500 mg= 1 tab(s), Oral, BID nystatin 100,000 units/mL Oral Susp, 545162 unit(s)= 4 mL, Oral, QID, 1 refills phentermine 37.5 mg Tab, 37.5 mg= 1 tab(s), Oral, Daily phentermine 37.5 mg Tab, 37.5 mg= 1 tab(s), Oral, Daily sertraline 50 mg Tab, 50 mg= 1 tab(s), Oral, Daily Allergies Tylenol with Codeine (Hallucinations) Social History Alcohol - Denies Alcohol Use, 05/23/2022 Substance Abuse - Denies Substance Abuse, 05/23/2022 Tobacco Never (less than 100 in lifetime) Tobacco Use:. Never Smokeless Tobacco Use:. Household tobacco concerns: No., 11/11/2022 Family History Family history is negative Normal [facility] Comment on above: Result Comment: Elec tronically Signed By: Melissa Selby.akira\Date and Time Signed: 11/11/22 15:18 EDT HEMATOLOGYOrdered By: SYSTEM SYSTEM on 08-26-2022 Basophils/100 WBC (Bld) 0.7 % Normal 0.0 - 2.0 % [facility] Basophils/Leukocytes Auto (Bld) [Pure # fraction] 0.1 E9/L Normal 0.0 - 0.2 E9/L [facility] Eosinophils/100 WBC (Bld) 0.8 % Normal 0.0 - 8.0 % [facility] Eosinophils/Leukocyte s Auto (Bld) [Pure # fraction] 0.1 E9/L Normal 0.0 - 0.5 E9/L [facility] Lymphocytes/100 WBC (Bld) 20.0 % Normal 14.0 - 50.0 % [facility] Lymphocytes/Leukocyte s Auto (Bld) [Pure # fraction] 3.0 E9/L Normal 1.0 - 4.0 E9/L [facility] Monocytes/100 WBC (Bld) 5.6 % Normal 4.0 - 14.0 % [facility] Monocytes/Leukocytes Auto (Bld) [Pure # fraction] 0.8 E9/L Normal 0.2 - 1.0 E9/L [facility] Neutrophils/100 WBC (Bld) 72.9 % Normal 36.0 - 75.0 % [facility] Neutrophils/Leukocyte s Auto (Bld) [Pure # fraction] 10.8 E9/L High 2.0 - 7.5 E9/L [facility] HEMATOLOGYOrdered By: Naty Ugalde on 08-26-2022 Erythrocyte distribution width (RBC) [Ratio] 14.6 % High 10.9 - 14.2 % [facility] Hematocrit (Bld) [Volume fraction] 44.2 % Normal 34.0 - 46.0 % [facility] Hemoglobin (Bld) [Mass/Vol] 14.1 g/dL Normal 12.0 - 16.0 gm/dL [facility] MCH (RBC) [Entitic mass] 26.8 pg Low 27.0 - 34.0 pg [facility] MCHC (RBC) [Mass/Vol] 31.9 g/dL Normal 31.4 - 36.0 gm/dL [facility] MCV (RBC) [Entitic vol] 83.9 fL Normal 80.0 - 100.0 fL [facility] Platelet mean volume (Bld) [Entitic vol] 8.1 fL Normal 6.4 - 10.8 fL [facility] Platelets (Bld) [#/Vol] 451.0 E9/L Normal 150.0 - 500.0 E9/L [facility] RBC (Bld) [#/Vol] 5.3 E12/L Normal 4.3 - 5.9 E12/L [facility] WBC corrected for nucl RBC Auto (Bld) [#/Vol] 14.8 E9/L High 4.0 - 11.0 E9/L [facility] CHEMISTRYOrdered By: SYSTEM SYSTEM on 08-19-2022 25-hydroxyvitamin D3 [Mass/Vol] 32.0 ng/mL Normal 30.0 - 100.0 ng/mL [facility] Albumin [Mass/Vol] 4.0 g/dL Normal 3.3 - 5.0 gm/dL [facility] Albumin/Globulin [Mass ratio] 1.1 {ratio} Normal 1.1 - 2.2 [facility] ALP [Catalytic activity/Vol] 96 [iU]/d Normal 21 - 98 Int._Unit/L [facility] ALT No additional P-5'-P [Catalytic activity/Vol] 17 [iU]/d Normal 6 - 46 Int._Unit/L [facility] Comment on above: Result Comment: 'Spe cimen hemolyzed, result may be affected. Recommend redraw.' Anion gap [Moles/Vol] 16 mmol/L Normal 6 - 16 mEq/L [facility] AST [Catalytic activity/Vol] 24 [iU]/d Normal 5 - 43 Int._Unit/L [facility] Comment on above: Result Comment: 'Spe cimen hemolyzed, result may be affected. Recommend redraw.' Bilirubin [Mass/Vol] 0.8 mg/dL Normal 0.0 - 1 .1 mg/dL [facility] Comment on above: Result Comment: 'Spe cimen hemolyzed, result may be affected. Redraw is recommended.' Calcium [Mass/Vol] 9.7 mg/dL Normal 8.9 - 11. 1 mg/dL [facility] Chloride [Moles/Vol] 101 mmol/L Normal 101 - 1 11 mmol/L [facility] Cholesterol [Mass/Vol] 200 mg/dL Normal 120 - 200 mg/dL [facility] Cholesterol in HDL [Mass/Vol] 43 mg/dL Invalid Interpretation Code [facility] Cholesterol in LDL [Mass/Vol] 71 mg/dL Normal <=129mg/dL [facility] Cholesterol in VLDL [Mass/Vol] 29 mg/dL Normal 7 - 40 mg/dL [facility] CO2 [Moles/Vol] 24 mmol/L Normal 21 - 31 mmol/L [facility] Creatinine [Mass/Vol] 0.8 mg/dL Normal 0.5 - 1.3 mg/dL [facility] GFR/1.73 sq M.predicted among non-blacks MDRD (S/P/Bld) [Vol rate/Area] 95 mL/min/1.73 m2 Normal >=59mL/min/1. 73 m2 [facility] Chem S Globulin (S) [Mass/Vol] 3.6 g/dL Normal 1.4 - 4.0 gm/dL [facility] Glucose [Mass/Vol] 99 mg/dL Normal 55 - 199 mg/dL [facility] Potassium [Moles/Vol] 3.6 mmol/L Normal 3.5 - 5.3 mmol/L [facility] Comment on above: Result Comment: 'Spe cimen hemolyzed. Result may be affected. Redraw is recommended.' Protein [Mass/Vol] 7.6 g/dL Normal 6.0 - 7.8 gm/dL [facility] Sodium [Moles/Vol] 137 mmol/L Normal 135 - 145 mmol/L [facility] Triglyceride [Mass/Vol] 144 mg/dL Normal <=149mg/dL [facility] TSH Qn 1.74 m[IU]/L Normal 0.34 - 5.60 mcIU/mL [facility] Urea nitrogen [Mass/Vol] 13 mg/dL Normal 5 - 21 mg/dL [facility] Urea nitrogen/Creatinine [Mass ratio] 16 mg/mg Normal 10 - 20 [facility] HEMATOLOGYOrdered By: SYSTEM SYSTEM on 08-19-2022 Basophils/100 WBC (Bld) 0.6 % Normal 0.0 - 2.0 % [facility] Basophils/Leukocytes Auto (Bld) [Pure # fraction] 0.1 E9/L Normal 0.0 - 0.2 E9/L [facility] Eosinophils/100 WBC (Bld) 0.6 % Normal 0.0 - 8.0 % [facility] Eosinophils/Leukocyte s Auto (Bld) [Pure # fraction] 0.1 E9/L Normal 0.0 - 0.5 E9/L [facility] Lymphocytes/100 WBC (Bld) 19.1 % Normal 14.0 - 50.0 % [facility] Lymphocytes/Leukocyte s Auto (Bld) [Pure # fraction] 3.2 E9/L Normal 1.0 - 4.0 E9/L [facility] Monocytes/100 WBC (Bld) 7.1 % Normal 4.0 - 14.0 % [facility] Monocytes/Leukocytes Auto (Bld) [Pure # fraction] 1.2 E9/L High 0.2 - 1.0 E9/L [facility] Neutrophils/100 WBC (Bld) 72.6 % Normal 36.0 - 75.0 % [facility] Neutrophils/Leukocyte s Auto (Bld) [Pure # fraction] 12.0 E9/L High 2.0 - 7.5 E9/L [facility] HEMATOLOGYOrdered By: Asad Hurley on 08-19-2022 Erythrocyte distribution width (RBC) [Ratio] 14.7 % High 10.9 - 14.2 % [facility] Hematocrit (Bld) [Volume fraction] 40.8 % Normal 34.0 - 46.0 % [facility] Hemoglobin (Bld) [Mass/Vol] 13.6 g/dL Normal 12.0 - 16.0 gm/dL [facility] MCH (RBC) [Entitic mass] 28.0 pg Normal 27.0 - 34.0 pg [facility] MCHC (RBC) [Mass/Vol] 33.4 g/dL Normal 31.4 - 36.0 gm/dL [facility] MCV (RBC) [Entitic vol] 83.7 fL Normal 80.0 - 100.0 fL [facility] Platelet mean volume (Bld) [Entitic vol] 9.4 fL Normal 6.4 - 10.8 fL [facility] Platelets (Bld) [#/Vol] 370.0 E9/L Normal 150.0 - 500.0 E9/L [facility] RBC (Bld) [#/Vol] 4.9 E12/L Normal 4.3 - 5.9 E12/L [facility] WBC corrected for nucl RBC Auto (Bld) [#/Vol] 16.6 E9/L High 4.0 - 11.0 E9/L [facility] VIT D 25-OH LABCORPon 2021 Vitamin D, 25-Hydroxy 16.0 ng/mL Critically low 30.0-100.0 [facility] Comment on above: Result Comment: Eladia min D deficiency has been defined by the [place] of Medicine and an Endocrine Society practice guideline as a level of serum 25-OH vitamin D less than 20 ng/mL (1,2). The Endocrine Society went on to further define vitamin D insufficiency as a level between 21 and 29 ng/mL (2). 1. IOM ([place] of Medicine). 2010. Dietary reference intakes for calcium and D. [place]: The National Academies Press. 2. Aleida WHITLEY, Ansley ESCALANTE, Hadley KRAFT, et al. Evaluation, treatment, and prevention of vitamin D deficiency: an Endocrine Society clinical practice guideline. JCEM. 2010; 96(7):1911-30. Performed By: #### C BC #### [facility] [address] [address] Darrion Cruz FOLATE ([facility])on Folate 12.6 ng/mL Normal >3.0 [facility] Comment on above: Result Comment: A se rum folate concentration of less than 3.1 ng/mL is considered to represent clinical deficiency. Performed By: #### F OLALC #### [facility] [address], [place] [address] Dr. Jessica Franz VITAMIN B12on 02-19-2021 Cobalamin (Vitamin B12) [Mass/Vol] 386 pg/mL Normal 232-1245 [facility] Comment on above: Performed By: #### F OLALC #### [facility] [address], [place] [address] Dr. Jessica Franz XR TSPINE 3 VIEWSon 02-02-20 21 XR TSPINE 3 VIEWS EXAMINATION: XR LSPINE MIN 4 VIEWS, XR TSPINE 3 VIEWS HISTORY: Low back pain COMPARISON: No relevant comparison available. FINDINGS: BONES: Normal alignment of the thoracic and lumbar vertebral bodies with no acute fracture. 2 mm anterolisthesis of L5 in relation to L4. Minimal degenerative spondylosis and facet osteoarthropathy. DISC SPACES: Normal. No significant disc height narrowing, subluxation, or endplate abnormality. PARASPINOUS: Negative. No paraspinous abnormality is seen. OTHER: Negative. IMPRESSION: Mild degenerative changes of the thoracic and lumbar spine Electronically authenticated by: DONNA HYMAN Date: 2021-02-01 07:15 Normal [facility] CT ABD/PELVIS WO CONon 12-27 CT ABD/PELVIS WO CON EXAMINATION: CT ABD/PELVIS WO CON, 12/26/2020 7:57 AM EDT HISTORY: Blood in urine COMPARISON: CT abdomen pelvis, 11/02/2020. TECHNIQUE: CT scan of the abdomen and pelvis was performed without IV contrast. CT dose reduction technique was used, including Automated Exposure Control. FINDINGS: Lung bases are clear. Cardiac size is normal. There is no pericardial effusion. The patient has undergone interval cholecystectomy. No biliary ductal dilatation is seen. The liver, pancreas, spleen, adrenal glands, aorta, IVC, stomach and small bowel are grossly unremarkable, allowing for the lack of contrast. There is a 2 mm nonobstructing stone in the upper pole of the left kidney. The kidneys are otherwise unremarkable. The appendix, pelvic small bowel loops, uterus, ovaries and decompressed urinary bladder appear unremarkable. There is a normal volume of stool and gas in the colon. No inflammatory fat stranding, free fluid, loculated fluid or free air is seen in the abdomen or pelvis. No acute osseous abnormality or suspicious bony lesion is seen. IMPRESSION: 1. No acute findings in the abdomen or pelvis. 2. Interval cholecystectomy without postoperative complication. 3. Single punctate 2 mm nonobstructing left renal calculus. Electronically authenticated by: HARESH RAMOS Date: 2020-12-27 03:49 Normal [facility] CBC AUTO DIFFon 12-12-2020 BASO # 0.1 103/ul Normal 0.0-0.1 [facility] Comment on above: Performed By: #### F OLALC #### [facility] [address] [address] [address] Jessica Franz Basophils/100 WBC (Bld) 0.7 % Normal 0.2-2.0 [facility] Comment on above: Performed By: #### F OLALC #### [facility] [address] [place] [address] Dr. Jessica Franz EO # 0.1 103/ul Normal 0.0-0.7 [facility] Comment on above: Performed By: #### F OLALC #### [facility] [address] [place] [address] Dr. Jessica Franz Eosinophils/100 WBC (Bld) 1.0 % Normal 0.9-7.0 [facility] Comment on above: Performed By: #### F OLALC #### [facility] [address] [place] [address] Dr. Jessica Franz Erythrocyte distribution width (RBC) [Ratio] 13.0 % Normal 11.0-15.0 [facility] Comment on above: Performed By: #### F OLALC #### [facility] [address] [place] [address] Dr. Jessica Franz Hematocrit (Bld) [Volume fraction] 44.5 % Normal 36.0-48.0 [facility] Comment on above: Performed By: #### F OLALC #### [facility] [address] [place] [address] Dr. Jessica Franz Hemoglobin (Bld) [Mass/Vol] 14.2 g/dL Normal 12.0-16.0 [facility] Comment on above: Performed By: #### F OLALC #### [facility] [address] [place] [address] Dr. Jessica Franz IG # 0.16 10e3/ul Critically high 0.00-0.03 [facility] Comment on above: Performed By: #### F OLALC #### [facility] [address] [address] [address] Jessica Franz IG % 1.3 % Critically high 0.0-0.5 [facility] Comment on above: Performed By: #### F OLALC #### [facility] [address] [address] [address] Jessica Franz LYMPH # 3.1 103/ul Normal 1.2-3.8 [facility] Comment on above: Performed By: #### F OLALC #### [facility] [address] [place] [address] Dr. Jessica Franz Lymphocytes/100 WBC (Bld) 24.6 % Normal 20.5-60.0 [facility] Comment on above: Performed By: #### F OLALC #### [facility] [address] [place] [address] Dr. Jessica Franz MANUAL DIFF REQ NO Normal [facility] Comment on above: Performed By: #### F OLALC #### [facility] [address] [place] [address] Dr. Jessica Franz MCH (RBC) [Entitic mass] 27.8 pg Normal 26.7-34.0 [facility] Comment on above: Performed By: #### F OLALC #### [facility] [address] [place] [address] Dr. Jessica Franz MCHC (RBC) [Mass/Vol] 31.9 g/dL Normal 29.9-35.2 [facility] Comment on above: Performed By: #### F OLALC #### [facility] [address] [place] [address] Dr. Jessica Franz MCV (RBC) [Entitic vol] 87.3 fL Normal 81.0-99.0 [facility] Comment on above: Performed By: #### F OLALC #### [facility] [address] [address] [address] Jessica Franz MONO # 1.3 103/ul Critically high 0.3-0.8 [facility] Comment on above: Performed By: #### F OLALC #### [facility] [address] [address] [address] Jessica Franz Monocytes/100 WBC (Bld) 9.9 % Normal 1.7-12.0 [facility] Comment on above: Performed By: #### F OLALC #### [facility] [address] [address] [address] Jessica Franz NEUT # 7.9 103/ul Critically high 1.4-6.5 [facility] Comment on above: Performed By: #### F OLALC #### [facility] [address] [address] [address] Jessica Franz Neutrophils/100 WBC (Bld) 62.5 % Normal 43.0-75.0 [facility] Comment on above: Performed By: #### F OLALC #### [facility] [address] [place] [address] Dr. Jessica Franz Platelet mean volume (Bld) [Entitic vol] 9.8 fL Normal 9.5-13.5 [facility] Comment on above: Performed By: #### F OLALC #### [facility] [address] [place] [address] Dr. Jessica Franz PLT 350 103/ul Normal 150-450 [facility] Comment on above: Performed By: #### F OLALC #### [facility] [address] [place] [address] Dr. Jessica Frazn RBC 5.10 106/ul Normal 4.20-5.40 [facility] Comment on above: Performed By: #### F OLALC #### [facility] [address] [address] [address] Jessica Franz WBC 12.6 103/ul Critically high 4.0-11.0 [facility] Comment on above: Performed By: #### F OLALC #### [facility] [address] [place] [address] Dr. Jessica Franz CULTURE URINEon 12-12-2020 CULTURE URINE Culture Observations: HEAVY GROWTH OF MIXED GENITAL EM. NO POTENTIAL PATHOGENS SEEN. Normal [facility] Comment on above: Performed By: #### C BC #### [facility] [address] [address] Darrion Bentleyen PROF 14(COMP METB)on 021 Albumin [Mass/Vol] 3.6 g/dL Normal 3.5-5.0 [facility] Comment on above: Performed By: #### C MP #### [facility] [address] [address] [address] Jessica Franz Albumin/Globulin [Mass ratio] 0.9 {ratio} Normal [facility] Comment on above: Performed By: #### C MP #### [facility] [address] [place] [address] Dr. Jessica Franz ALP [Catalytic activity/Vol] 105 U/L Normal 38-126 [facility] Comment on above: Performed By: #### C MP #### [facility] [address] [place] [address] Dr. Jessica Franz ALT [Catalytic activity/Vol] 40 U/L Normal 9-52 [facility] Comment on above: Performed By: #### C MP #### [facility] [address] [address] [address] Jessica Franz Anion gap [Moles/Vol] 10.1 mmol/L Normal [facility] Comment on above: Performed By: #### C MP #### [facility] [address] [place] [address] Dr. Jessica Franz AST [Catalytic activity/Vol] 16 U/L Normal 14-36 [facility] Comment on above: Performed By: #### C MP #### [facility] [address] [address] [address] Jessica Franz Bilirubin [Mass/Vol] 0.5 mg/dL Normal 0.2-1.3 [facility] Comment on above: Performed By: #### C MP #### [facility] [address] [address] [address] Jessica Franz Calcium [Mass/Vol] 8.8 mg/dL Normal 8.4-10.2 [facility] Comment on above: Performed By: #### C MP #### [facility] [address] [address] [address] Jessica Franz Chloride [Moles/Vol] 102 mmol/L Normal 98-107 [facility] Comment on above: Performed By: #### C MP #### [facility] [address] [address] [address] Jessica Franz CO2 [Moles/Vol] 28.6 mmol/L Normal 22.0-30.0 [facility] Comment on above: Performed By: #### C MP #### [facility] [address] [place] [address] Dr. Jessica Franz Creatinine [Mass/Vol] 0.87 mg/dL Normal 0.52-1.04 [facility] Comment on above: Performed By: #### C MP #### [facility] [address] [place] [address] Dr. Jessica Franz EGFR-AF QATARI >60 Normal >=60 [facility] Comment on above: Performed By: #### C MP #### [facility] [address] [place] [address] Dr. Jessica Franz EGFR-NON AF QATARI >60 Normal >=60 [facility] Comment on above: Performed By: #### C MP #### [facility] [address] [place] [address] Dr. Jessica Franz Globulin (S) [Mass/Vol] 4.0 g/dL Normal [facility] Comment on above: Performed By: #### C MP #### [facility] [address] [place] [address] Dr. Jessica Franz Glucose [Mass/Vol] 90 mg/dL Normal 74-106 [facility] Comment on above: Performed By: #### C MP #### [facility] [address] [place] [address] Dr. Jessica Franz Potassium [Moles/Vol] 3.7 mmol/L Normal 3.4-5.0 [facility] Comment on above: Performed By: #### C MP #### [facility] [address] [place] [address] Dr. Jessica Franz Protein [Mass/Vol] 7.6 g/dL Normal 6.1-8.2 [facility] Comment on above: Performed By: #### C MP #### [facility] [address] [place] [address] Dr. Jessica Franz Sodium [Moles/Vol] 137 mmol/L Normal 137-145 [facility] Comment on above: Performed By: #### C MP #### [facility] [address] [place] [address] Dr. Jessica Franz Urea nitrogen [Mass/Vol] 12.0 mg/dL Normal 7.0-17.0 [facility] Comment on above: Performed By: #### C MP #### [facility] [address] [place] [address] Dr. Jessica Franz Urea nitrogen/Creatinine [Mass ratio] 13.8 mg/mg Normal [facility] Comment on above: Performed By: #### C MP #### [facility] [address] [place] [address] Dr. Jessica Franz UA RANDOM W/MICROSCOPICon AMORPHOUS CRYSTALS MANY Normal [facility] Comment on above: Performed By: #### F OLALC #### [facility] [address] [place] [address] Dr. Jessica Franz BACTERIA MODERATE Abnormal NONE SEEN [facility] Comment on above: Performed By: #### F OLALC #### [facility] [address] [place] [address] Dr. Jessica Franz Bilirubin Ql (U) Negative Normal NEGATIVE [facility] Comment on above: Performed By: #### F OLALC #### [facility] [address] [place] [address] Dr. Jessica Franz CAST NONE SEEN Normal NONE SEEN [facility] Comment on above: Performed By: #### F OLALC #### [facility] [address] [place] [address] Dr. Jessica Franz Clarity (U) CLOUDY Abnormal CLEAR [facility] Comment on above: Performed By: #### F OLALC #### [facility] [address] [place], [place] [id number] Dr. Jessica Franz Color (U) YELLOW Normal YELLOW [facility] Comment on above: Performed By: #### F OLALC #### [facility] [address] [place] [address] Dr. Jessica Franz Crystals LM Nom (Urine sed) SEEN Abnormal NONE SEEN [facility] Comment on above: Performed By: #### F OLALC #### [facility] [address] [place] [address] Dr. Jessica Franz Epithelial cells LM Ql (Urine sed) MODERATE Abnormal NONE SEEN /RARE [facility] Comment on above: Performed By: #### F OLALC #### [facility] [address] [place] [address] Dr. Jessica Franz Glucose Ql (U) Negative Normal NEGATIVE [facility] Comment on above: Performed By: #### F OLALC #### [facility] [address] [place] [address] Dr. Jessica Franz Hemoglobin Ql (U) Negative Normal NEGATIVE [facility] Comment on above: Performed By: #### F OLALC #### [facility] [address] [place] [address] Dr. Jessica Franz Ketones Ql (U) Negative Normal NEGATIVE [facility] Comment on above: Performed By: #### F OLALC #### [facility] [address] [place] [address] Dr. Jessica Franz LEUKOCYTES SMALL Abnormal NEGATIVE [facility] Comment on above: Performed By: #### F OLALC #### [facility] [address] [place] [address] Dr. Jessica Franz MUCOUS NONE SEEN Normal NONE SEEN [facility] Comment on above: Performed By: #### F OLALC #### [facility] [address] [place] [address] Dr. Jessica Franz Nitrite Ql (U) Negative Normal NEGATIVE [facility] Comment on above: Performed By: #### F OLALC #### [facility] [address] [place] [address] Dr. Jessica Franz pH (U) 6.0 [pH] Normal 5-9 [facility] Comment on above: Performed By: #### F OLALC #### [facility] [address] [address] [address] Jessica Franz RBC 2-5 Abnormal 0-2 [facility] Comment on above: Performed By: #### F OLALC #### [facility] [address] [place] [address] Dr. Jessica Franz SPEC GRAVITY 1.025 Normal 1.005-<=1.025 [facility] Comment on above: Performed By: #### F OLALC #### [facility] [address] [place] [address] Dr. Jessica Franz UA PROTEIN Negative Normal NEGATIVE/ TRACE [facility] Comment on above: Performed By: #### F OLALC #### [facility] [address] [place] [address] Dr. Jessica Franz Urobilinogen Qn (U) 0.2 {Rodrigue'U}/dL Normal 0.2 - 1. 0 [facility] Comment on above: Performed By: #### F OLALC #### [facility] [address] [place] [address] Dr. Jessica Franz WBC 10-20 Abnormal NONE SEEN [facility] Comment on above: Performed By: #### F OLALC #### [facility] [address] [place] [address] Dr. Jessica Franz CLOSTRIDIUM DIFFICILE PCRon 12-01-2020 C difficile Toxin Gene CAROLE Negative Normal Negative [facility] Comment on above: Performed By: #### C DIFNAA #### [facility] [address] [place] [address] Dr. Jessica Franz CULTURE URINEon 11-30-2020 CULTURE URINE Culture Observations: MODERATE GROWTH OF MIXED GENITAL EM. NO POTENTIAL PATHOGENS SEEN. Normal [facility] Comment on above: Performed By: #### C BC #### [facility] [address] [place] [address] Darrion Cruz LIPASEon 11-30-2020 Lipase [Catalytic activity/Vol] 141.0 U/L Normal 23.0-300.0 [facility] Comment on above: Performed By: #### F OLALC #### [facility] [address] [place] [address] Dr. Jessica Franz UA (CLEAN/CATCH) CAUSTIC ROOM OPERATOR/MICRO I F IND.on 11-30-2020 Bilirubin Ql (U) Negative Normal NEGATIVE [facility] Comment on above: Performed By: #### C MP #### [facility] [address] [place] [address] Dr. Jessica Franz Clarity (U) CLEAR Normal CLEAR [facility] Comment on above: Performed By: #### C MP #### [facility] [address] [place] [address] Dr. Jessica Franz Color (U) YELLOW Normal YELLOW [facility] Comment on above: Performed By: #### C MP #### [facility] [address] [place] [address] Dr. Jessica Franz Glucose Ql (U) Negative Normal NEGATIVE [facility] Comment on above: Performed By: #### C MP #### [facility] [address] [place] [address] Dr. Jessica Franz Hemoglobin Ql (U) Negative Normal NEGATIVE [facility] Comment on above: Performed By: #### C MP #### [facility] [address] [place] [address] Dr. Jessica Franz Ketones Ql (U) Negative Normal NEGATIVE [facility] Comment on above: Performed By: #### C MP #### [facility] [address] [place] [address] Dr. Jessica Franz LEUKOCYTES SMALL Abnormal NEGATIVE [facility] Comment on above: Performed By: #### C MP #### [facility] [address] [place] [address] Dr. Jessica Franz Nitrite Ql (U) Negative Normal NEGATIVE [facility] Comment on above: Performed By: #### C MP #### [facility] [address] [place] [address] Dr. Jessica Franz pH (U) 6.5 [pH] Normal 5-9 [facility] Comment on above: Performed By: #### C MP #### [facility] [address] [place] [address] Dr. Jessica Franz SPEC GRAVITY 1.025 Normal 1.005-<=1.025 [facility] Comment on above: Performed By: #### C MP #### [facility] [address] [place] [address] Dr. Jessica Franz UA PROTEIN TRACE Normal NEGATIVE/ TRACE [facility] Comment on above: Performed By: #### C MP #### [facility] [address] [place] [address] Dr. Jessica Franz UR MICRO IND INDICATED Normal [facility] Comment on above: Performed By: #### C MP #### [facility] [address] [place] [address] Dr. Jessica Franz Urobilinogen Qn (U) 0.2 {Rodrigue'U}/dL Normal 0.2 - 1. 0 [facility] Comment on above: Performed By: #### C MP #### [facility] [address] [place] [address] Dr. Jessica Franz URINE MICROSCOPIC ONLYon BACTERIA SMALL Abnormal NONE SEEN [facility] Comment on above: Performed By: #### C MP #### [facility] [address] [place] [address] Dr. Jessica Franz Bacteria identified Cx Nom (U) INDICATED Normal [facility] Comment on above: Performed By: #### C MP #### [facility] [address] [place] [address] Dr. Jessica Franz CAST NONE SEEN Normal NONE SEEN [facility] Comment on above: Performed By: #### C MP #### [facility] [address] [place] [address] Dr. Jessica Franz Crystals LM Nom (Urine sed) NONE SEEN Normal NONE SEEN [facility] Comment on above: Performed By: #### C MP #### [facility] [address] [place] [address] Dr. Jessica Franz Epithelial cells LM Ql (Urine sed) MODERATE Abnormal NONE SEEN /RARE [facility] Comment on above: Performed By: #### C MP #### [facility] [address] [address] [address] Jessica Franz MUCOUS NONE SEEN Normal NONE SEEN [facility] Comment on above: Performed By: #### C MP #### [facility] [address] [address] [address] Jessica Franz RBC 0-2 Normal 0-2 [facility] Comment on above: Performed By: #### C MP #### [facility] [address] [address] [address] Jessica Franz WBC 5-10 Abnormal NONE SEEN [facility] Comment on above: Performed By: #### C MP #### [facility] [address] [address] [address] Jessica Franz XR ABD FLAT UP_PA Bassem 11-30 XR ABD FLAT UP_PA CH EXAMINATION: XR ABD FLAT UP_PA CH HISTORY: Diarrhea , right upper quadrant pain, nausea COMPARISON: 11/02/2020 FINDINGS: LUNGS: The right lung is clear. Mild left basilar opacity obscuring the lateral costophrenic angle MEDIASTINUM: No abnormal widening. BOWEL GAS PATTERN: Non-obstructed. FREE AIR: None. CALCIFICATIONS: None significant. BONES: No fracture or visible bone lesion. OTHER: Right upper quadrant surgical clips from cholecystectomy IMPRESSION: Left basilar infiltrate, atelectasis versus pneumonia Nonobstructive bowel gas pattern Electronically authenticated by: DONNA HYMAN Date: 2020-11-30 16:34 Normal [facility] CBC AUTO DIFFon 11-04-2020 BASO # 0.0 103/ul Normal 0.0-0.1 [facility] Comment on above: Performed By: #### C BC #### [facility] [address] [place] [address] Dr. Jessica Franz Basophils/100 WBC (Bld) 0.1 % Critically low 0.2-2.0 [facility] Comment on above: Performed By: #### C BC #### [facility] [address] [address] [address] Jessica Franz EO # 0.0 103/ul Normal 0.0-0.7 [facility] Comment on above: Performed By: #### C BC #### [facility] [address] [address] [address] Jessica Franz Eosinophils/100 WBC (Bld) 0.1 % Critically low 0.9-7.0 [facility] Comment on above: Performed By: #### C BC #### [facility] [address] [place] [address] Dr. Jessica Franz Erythrocyte distribution width (RBC) [Ratio] 12.8 % Normal 11.0-15.0 [facility] Comment on above: Performed By: #### C BC #### [facility] [address] [place] [address] Dr. Jessica Franz Hematocrit (Bld) [Volume fraction] 37.2 % Normal 36.0-48.0 [facility] Comment on above: Performed By: #### C BC #### [facility] [address] [place] [address] Dr. Jessica Franz Hemoglobin (Bld) [Mass/Vol] 11.9 g/dL Critically low 12.0-16.0 [facility] Comment on above: Performed By: #### C BC #### [facility] [address] [place] [address] Dr. Jessica Franz IG # 0.09 10e3/ul Critically high 0.00-0.03 [facility] Comment on above: Performed By: #### C BC #### [facility] [address] [place] [address] Dr. Jessica Franz IG % 0.7 % Critically high 0.0-0.5 [facility] Comment on above: Performed By: #### C BC #### [facility] [address] [place] [address] Dr. Jessica Franz LYMPH # 1.5 103/ul Normal 1.2-3.8 [facility] Comment on above: Performed By: #### C BC #### [facility] [address] [place] [address] Dr. Jessica Franz Lymphocytes/100 WBC (Bld) 11.1 % Critically low 20.5-60.0 [facility] Comment on above: Performed By: #### C BC #### [facility] [address] [address] [address] Jessica Franz MANUAL DIFF REQ NO Normal [facility] Comment on above: Performed By: #### C BC #### [facility] [address] [place] [address] Dr. Jessica Franz MCH (RBC) [Entitic mass] 28.6 pg Normal 26.7-34.0 [facility] Comment on above: Performed By: #### C BC #### [facility] [address] [place] [address] Dr. Jessica Franz MCHC (RBC) [Mass/Vol] 32.0 g/dL Normal 29.9-35.2 [facility] Comment on above: Performed By: #### C BC #### [facility] [address] [place] [address] Dr. Jesisca Franz MCV (RBC) [Entitic vol] 89.4 fL Normal 81.0-99.0 [facility] Comment on above: Performed By: #### C BC #### [facility] [address] [place] [address] Dr. Jessica Franz MONO # 1.1 103/ul Critically high 0.3-0.8 [facility] Comment on above: Performed By: #### C BC #### [facility] [address] [place] [address] Dr. Jessica Franz Monocytes/100 WBC (Bld) 7.7 % Normal 1.7-12.0 [facility] Comment on above: Performed By: #### C BC #### [facility] [address] [place] [address] Dr. Jessica Franz NEUT # 11.0 103/ul Critically high 1.4-6.5 [facility] Comment on above: Performed By: #### C BC #### [facility] [address] [place] [address] Dr. Jessica Franz Neutrophils/100 WBC (Bld) 80.3 % Critically high 43.0-75.0 [facility] Comment on above: Performed By: #### C BC #### [facility] [address] [place] [address] Dr. Jessica Franz Platelet mean volume (Bld) [Entitic vol] 9.6 fL Normal 9.5-13.5 [facility] Comment on above: Performed By: #### C BC #### [facility] [address] [address] [address] Jessica Franz PLT 389 103/ul Normal 150-450 [facility] Comment on above: Performed By: #### C BC #### [facility] [address] [address] [address] Jessica Franz RBC 4.16 106/ul Critically low 4.20-5.40 [facility] Comment on above: Performed By: #### C BC #### [facility] [address] [place] [address] Dr. Jessica Franz WBC 13.7 103/ul Critically high 4.0-11.0 [facility] Comment on above: Performed By: #### C BC #### [facility] [address] [address] [address] Jessica Franz PROF 14(COMP METB)on 021 Albumin [Mass/Vol] 2.7 g/dL Critically low 3.5-5.0 [facility] Comment on above: Performed By: #### C MP #### [facility] [address] [place] [address] Dr. Jessica Franz Albumin/Globulin [Mass ratio] 0.8 {ratio} Normal [facility] Comment on above: Performed By: #### C MP #### [facility] [address] [place] [address] Dr. Jessica Franz ALP [Catalytic activity/Vol] 90 U/L Normal 38-126 [facility] Comment on above: Performed By: #### C MP #### [facility] [address] [place] [address] Dr. Jessica Franz ALT [Catalytic activity/Vol] 111 U/L Critically high 9-52 [facility] Comment on above: Performed By: #### C MP #### [facility] [address] [place] [address] Dr. Jessica Franz Anion gap [Moles/Vol] 12.5 mmol/L Normal [facility] Comment on above: Performed By: #### C MP #### [facility] [address] [address] [address] Jessica Franz AST [Catalytic activity/Vol] 62 U/L Critically high 14-36 [facility] Comment on above: Performed By: #### C MP #### [facility] [address] [address] [address] Jessica Franz Bilirubin [Mass/Vol] 0.5 mg/dL Normal 0.2-1.3 [facility] Comment on above: Performed By: #### C MP #### [facility] [address] [address] [address] Jessica Franz Calcium [Mass/Vol] 8.0 mg/dL Critically low 8.4-10.2 [facility] Comment on above: Performed By: #### C MP #### [facility] [address] [address] [address] Jessica Franz Chloride [Moles/Vol] 106 mmol/L Normal 98-107 [facility] Comment on above: Performed By: #### C MP #### [facility] [address] [address] [address] Jessica Franz CO2 [Moles/Vol] 24.6 mmol/L Normal 22.0-30.0 [facility] Comment on above: Performed By: #### C MP #### [facility] [address] [address] [address] Jessica Franz Creatinine [Mass/Vol] 0.71 mg/dL Normal 0.52-1.04 [facility] Comment on above: Performed By: #### C MP #### [facility] [address] [address] [address] Jessica Franz EGFR-AF QATARI >60 Normal >=60 [facility] Comment on above: Performed By: #### C MP #### [facility] [address] [address] [address] Jessica Franz EGFR-NON AF QATARI >60 Normal >=60 [facility] Comment on above: Performed By: #### C MP #### [facility] [address] [address] [address] Jessica Franz Globulin (S) [Mass/Vol] 3.6 g/dL Normal [facility] Comment on above: Performed By: #### C MP #### [facility] [address] [address] [address] Jessica Franz Glucose [Mass/Vol] 121 mg/dL Critically high 74-106 [facility] Comment on above: Performed By: #### C MP #### [facility] [address] [address] [address] Jessica Franz Potassium [Moles/Vol] 3.1 mmol/L Critically low 3.4-5.0 [facility] Comment on above: Performed By: #### C MP #### [facility] [address] [address] [address] Jessica Franz Protein [Mass/Vol] 6.3 g/dL Normal 6.1-8.2 [facility] Comment on above: Performed By: #### C MP #### [facility] [address] [address] [address] Jessica Franz Sodium [Moles/Vol] 140 mmol/L Normal 137-145 [facility] Comment on above: Performed By: #### C MP #### [facility] [address] [address] [address] Jessica Franz Urea nitrogen [Mass/Vol] 4.0 mg/dL Critically low 7.0-17.0 [facility] Comment on above: Performed By: #### C MP #### [facility] [address] [address] [address] Jessica Franz Urea nitrogen/Creatinine [Mass ratio] 5.6 mg/mg Normal [facility] Comment on above: Performed By: #### C MP #### [facility] [address] [address] [address] Jessica Franz CBC W MANUAL DIFFon 11-04-19 21 ATYPICAL LYMPH # Normal [facility] Comment on above: Performed By: #### C MP #### [facility] [address] [place] [address] Dr. Jessica Franz ATYPICAL LYMPH % Normal [facility] Comment on above: Performed By: #### C MP #### [facility] [address] [place] [address] Dr. Jessica Franz BAND # Normal 0.0-0.3 [facility] Comment on above: Performed By: #### C MP #### [facility] [address] [place] [address] Dr. Jessica Franz BAND % Normal 0-5 [facility] Comment on above: Performed By: #### C MP #### [facility] [address] [place] [address] Dr. Jessica Franz BASOM # 0.00 103/ul Normal 0.00-0.10 [facility] Comment on above: Performed By: #### C MP #### [facility] [address] [place] [address] Dr. Jessica Franz BASOM % 0.0 % Critically low 0.2-2.0 [facility] Comment on above: Performed By: #### C MP #### [facility] [address] [place] [address] Dr. Jessica Franz BLAST # Normal [facility] Comment on above: Performed By: #### C MP #### [facility] [address] [place] [address] Dr. Jessica Franz BLAST % Normal [facility] Comment on above: Performed By: #### C MP #### [facility] [address] [place] [address] Dr. Jessica Franz CORRECTED WBC Normal 4.0-11.0 [facility] Comment on above: Performed By: #### C MP #### [facility] [address] [place] [address] Dr. Jessica Franz EOS # 0.36 103/ul Normal 0.00-0.70 [facility] Comment on above: Performed By: #### C MP #### [facility] [address] [place] [address] Dr. Jessica Franz EOS% 3.0 % Normal 0.9-7.0 [facility] Comment on above: Performed By: #### C MP #### [facility] [address] [place] [address] Dr. Jessica Franz HCT 40.7 % Normal 36.0-48.0 [facility] Comment on above: Performed By: #### C MP #### [facility] [address] [place] [address] Dr. Jessica Franz HGB 12.6 g/dl Normal 12.0-16.0 [facility] Comment on above: Performed By: #### C MP #### [facility] [address] [place] [address] Dr. Jessica Franz LYMPHM # 1.78 103/ul Normal 1.20-3.80 [facility] Comment on above: Performed By: #### C MP #### [facility] [address] [place] [address] Dr. Jessica Franz LYMPHM% 15.0 % Critically low 20.5-60.0 [facility] Comment on above: Performed By: #### C MP #### [facility] [address] [place] [address] Dr. Jessica Franz MCH 28.2 pg Normal 26.7-34.0 [facility] Comment on above: Performed By: #### C MP #### [facility] [address] [place] [address] Dr. Jessica Franz MCHC 31.0 g/dl Normal 29.9-35.2 [facility] Comment on above: Performed By: #### C MP #### [facility] [address] [place] [address] Dr. Jessica Franz MCV 91.1 fL Normal 81.0-99.0 [facility] Comment on above: Performed By: #### C MP #### [facility] [address] [place] [address] Dr. Jessica Franz METAMYELOCYTE # Normal [facility] Comment on above: Performed By: #### C MP #### [facility] [address] [address] [address] Jessica Franz METAMYELOCYTE % Normal [facility] Comment on above: Performed By: #### C MP #### [facility] [address] [address] [address] Jessica Franz MONOM# 1.19 103/ul Critically high 0.30-0.80 [facility] Comment on above: Performed By: #### C MP #### [facility] [address] [address] [address] Jessica Franz MONOM% 10.0 % Normal 1.7-12.0 [facility] Comment on above: Performed By: #### C MP #### [facility] [address] [place] [address] Dr. Jessica Franz MPV 9.4 fL Critically low 9.5-13.5 [facility] Comment on above: Performed By: #### C MP #### [facility] [address] [address] [address] Jessica Franz MYELOCYTE # Normal [facility] Comment on above: Performed By: #### C MP #### [facility] [address] [address] [address] Jessica Franz MYELOCYTE % Normal [facility] Comment on above: Performed By: #### C MP #### [facility] [address] [place] [address] Dr. Jessica Franz NRBC Normal [facility] Comment on above: Performed By: #### C MP #### [facility] [address] [place] [address] Dr. Jessica Franz PLT 357 103/ul Normal 150-450 [facility] Comment on above: Result Comment: NO P LATELET CLUMPS SEEN Performed By: #### C MP #### [facility] [address] [place] [address] Dr. Jessica Franz RBC 4.47 106/ul Normal 4.20-5.40 [facility] Comment on above: Performed By: #### C MP #### [facility] [address] [place] [address] Dr. Jessica Franz RDW 13.0 % Normal 11.0-15.0 [facility] Comment on above: Performed By: #### C MP #### [facility] [address] [place], [place] [id number] Dr. Jessica Franz SEG # 8.57 103/ul Critically high 1.40-6.50 [facility] Comment on above: Performed By: #### C MP #### [facility] [address] [place] [address] Dr. Jessica Franz SEG % 72.0 % Normal 43.0-75.0 [facility] Comment on above: Performed By: #### C MP #### [facility] [address] [place], [place] [address] Dr. Jessica Franz WBC 11.9 103/ul Critically high 4.0-11.0 [facility] Comment on above: Performed By: #### C MP #### [facility] [address] [place] [address] Dr. Jessica Franz PREG HCG QUALon 11-03-2020 , QUAL Negative Normal NEGATIVE [facility] Comment on above: Performed By: #### C MP #### [facility] [address] [place] [address] Dr. Jessica Franz PROF 14(COMP METB)on 021 Albumin [Mass/Vol] 2.7 g/dL Critically low 3.5-5.0 [facility] Comment on above: Performed By: #### C BC #### [facility] [address] [place], [place] [address] Darrion Nancy Albumin/Globulin [Mass ratio] 0.8 {ratio} Normal [facility] Comment on above: Performed By: #### C BC #### [facility] [address] [place], [place] [address] Darrion Nancy ALP [Catalytic activity/Vol] 87 U/L Normal 38-126 [facility] Comment on above: Performed By: #### C BC #### [facility] [address] [place], [place] [address] Darrion Nancy ALT [Catalytic activity/Vol] 98 U/L Critically high 9-52 [facility] Comment on above: Performed By: #### C BC #### [facility] [address], [place] [address] Darrion Nancy Anion gap [Moles/Vol] 14.0 mmol/L Normal [facility] Comment on above: Performed By: #### C BC #### [facility] [address], [place] [address] Darrion Nancy AST [Catalytic activity/Vol] 59 U/L Critically high 14-36 [facility] Comment on above: Performed By: #### C BC #### [facility] [address], [place] [address] Darrion Nancy Bilirubin [Mass/Vol] 0.6 mg/dL Normal 0.2-1.3 [facility] Comment on above: Performed By: #### C BC #### [facility] [address], [place] [address] Darrion Nancy Calcium [Mass/Vol] 7.8 mg/dL Critically low 8.4-10.2 [facility] Comment on above: Performed By: #### C BC #### [facility] [address], [place] [address] Darrion Nancy Chloride [Moles/Vol] 108 mmol/L Critically high 98-107 [facility] Comment on above: Performed By: #### C BC #### [facility] [address], [place] [address] Darrion Nancy CO2 [Moles/Vol] 23.3 mmol/L Normal 22.0-30.0 [facility] Comment on above: Performed By: #### C BC #### [facility] [address], [place] [address] Darrion Nancy Creatinine [Mass/Vol] 0.75 mg/dL Normal 0.52-1.04 [facility] Comment on above: Performed By: #### C BC #### [facility] [address], [place] [address] Darrion Nancy EGFR-AF QATARI >60 Normal >=60 [facility] Comment on above: Performed By: #### C BC #### [facility] [address], [place] [address] Darrion Nancy EGFR-NON AF QATARI >60 Normal >=60 [facility] Comment on above: Performed By: #### C BC #### [facility] [address] [place], [place] [address] Darrion Nancy Globulin (S) [Mass/Vol] 3.4 g/dL Normal [facility] Comment on above: Performed By: #### C BC #### [facility] [address] [id number] Darrion Nancy Glucose [Mass/Vol] 98 mg/dL Normal 74-106 [facility] Comment on above: Performed By: #### C BC #### [facility] [address] [place], [place] [address] Darrion Nancy Potassium [Moles/Vol] 3.3 mmol/L Critically low 3.4-5.0 [facility] Comment on above: Performed By: #### C BC #### [facility] [address] [place] [address] Darrion Nancy Protein [Mass/Vol] 6.1 g/dL Normal 6.1-8.2 [facility] Comment on above: Performed By: #### C BC #### [facility] [address] [place], [place] [address] Darrion Nancy Sodium [Moles/Vol] 142 mmol/L Normal 137-145 [facility] Comment on above: Performed By: #### C BC #### [facility] [address] [place], [place] [address] Darrion Nancy Urea nitrogen [Mass/Vol] 6.0 mg/dL Critically low 7.0-17.0 [facility] Comment on above: Performed By: #### C BC #### [facility] [address] [place], [place] [address] Darrion Nancy Urea nitrogen/Creatinine [Mass ratio] 8.0 mg/mg Normal [facility] Comment on above: Performed By: #### C BC #### [facility] [address] [place], [place] [address] Darrion Nancy AMYLASEon 11-02-2020 Amylase [Catalytic activity/Vol] 51 U/L Normal 31-110 [facility] Comment on above: Performed By: #### C GARETT KUHN LIPA #### [facility] [address] [place] [address] Darrion Cruz ASYMPTOMATIC COVID-19 ANTIGE Non 11-02-2020 EUA Statement SEE BELOW Normal [facility] Comment on above: Result Comment: This test has not been FDA cleared or approved, but has been authorized by the FDA under an Emergency Use Authorization (EUA) for use by authorized laboratories certified under CLIA that meet the requirements to perform moderate or high complexity testing. This test has been authorized only for the detection of proteins from SARS-CoV-2, not for any other viruses or pathogens. The emergency use of this test is authorized for the duration of the declaration that circumstances exist justifying the authorization of emergency use of in vitro diagnostic tests for detection and/or diagnosis of Covid-19 under section 564(b)(1) of the Act, 21 U.S.C. 360bbb-3(b)(1), unless the declaration is terminated or authorization is revoked sooner. Performed By: #### C VDAGA #### [facility] [address] [place] [address] Darrion Cruz SARS-CoV-2 (COVID-19) RNA CAROLE+probe Ql (Unsp spec) Negative Normal NEGATIVE [facility] Comment on above: Result Comment: Nega tive results are presumptive. They do not preclude infection and should not be used as the sole basis for treatment decisions. Additional confirmatory testing by a molecular method should be considered. Performed By: #### C VDAGA #### [facility] [address] [place] [address] Darrion Cruz CBC AUTO DIFFon 11-02-2020 BASO # 0.1 103/ul Normal 0.0-0.1 [facility] Comment on above: Performed By: #### C BC #### [facility] [address] [place] [address] Darrion Cruz Basophils/100 WBC (Bld) 0.7 % Normal 0.2-2.0 [facility] Comment on above: Performed By: #### C BC #### [facility] [address] [id number] Darrion Nancy EO # 0.1 103/ul Normal 0.0-0.7 [facility] Comment on above: Performed By: #### C BC #### [facility] [address] [id number] Darrion Nancy Eosinophils/100 WBC (Bld) 0.4 % Critically low 0.9-7.0 [facility] Comment on above: Performed By: #### C BC #### [facility] [address] [address] Darrion Nancy Erythrocyte distribution width (RBC) [Ratio] 12.7 % Normal 11.0-15.0 [facility] Comment on above: Performed By: #### C BC #### [facility] [address] [place] [address] Darrion Nancy Hematocrit (Bld) [Volume fraction] 46.7 % Normal 36.0-48.0 [facility] Comment on above: Performed By: #### C BC #### [facility] [address] [place], [place] [address] Darrion Nancy Hemoglobin (Bld) [Mass/Vol] 15.4 g/dL Normal 12.0-16.0 [facility] Comment on above: Performed By: #### C BC #### [facility] [address] [place], [place] [address] Darrion Nancy IG # 0.13 10e3/ul Critically high 0.00-0.03 [facility] Comment on above: Performed By: #### C BC #### [facility] [address] [place], [place] [address] Darrion Nancy IG % 0.9 % Critically high 0.0-0.5 [facility] Comment on above: Performed By: #### C BC #### [facility] [address] [address] Darrion Nancy LYMPH # 2.7 103/ul Normal 1.2-3.8 [facility] Comment on above: Performed By: #### C BC #### [facility] [address] [place], [place] [address] Darrion Nancy Lymphocytes/100 WBC (Bld) 17.3 % Critically low 20.5-60.0 [facility] Comment on above: Performed By: #### C BC #### [facility] [address] [place], [place] [address] Darrion Nancy MANUAL DIFF REQ NO Normal [facility] Comment on above: Performed By: #### C BC #### [facility] [address] [place], [place] [address] Darrion Nancy MCH (RBC) [Entitic mass] 28.5 pg Normal 26.7-34.0 [facility] Comment on above: Performed By: #### C BC #### [facility] [address] [place] [address] Darrionvera Cruz MCHC (RBC) [Mass/Vol] 33.0 g/dL Normal 29.9-35.2 [facility] Comment on above: Performed By: #### C BC #### [facility] [address] [place], [place] [address] Darrion Nancy MCV (RBC) [Entitic vol] 86.3 fL Normal 81.0-99.0 [facility] Comment on above: Performed By: #### C BC #### [facility] [address] [place] [address] Darrion Nancy MONO # 1.1 103/ul Critically high 0.3-0.8 [facility] Comment on above: Performed By: #### C BC #### [facility] [address] [place] [address] Darrion Nancy Monocytes/100 WBC (Bld) 7.3 % Normal 1.7-12.0 [facility] Comment on above: Performed By: #### C BC #### [facility] [address] [place], [place] [address] Darrion Nancy NEUT # 11.2 103/ul Critically high 1.4-6.5 [facility] Comment on above: Performed By: #### C BC #### [facility] [address] [place] [address] Darrion Cruz Neutrophils/100 WBC (Bld) 73.4 % Normal 43.0-75.0 [facility] Comment on above: Performed By: #### C BC #### [facility] [address], [place] [address] Darrion Cruz Platelet mean volume (Bld) [Entitic vol] 9.2 fL Critically low 9.5-13.5 [facility] Comment on above: Performed By: #### C BC #### [facility] [address] [id number] Darrion Cruz PLT 459 103/ul Critically high 150-450 [facility] Comment on above: Performed By: #### C BC #### [facility] [address] [address] Darrion Cruz RBC 5.41 106/ul Critically high 4.20-5.40 [facility] Comment on above: Performed By: #### C BC #### [facility] [address] [id number] Darrion Cruz WBC 15.3 103/ul Critically high 4.0-11.0 [facility] Comment on above: Performed By: #### C BC #### [facility] [address], [place] [address] ABD/PELV W CONon 11-03-19 CT ABD/PELV W CON EXAM: CT ABD/PELV W CON 11/02/2020 3:48 AM EDT [id number] CLINICAL STATEMENT: ABDOMINAL DISTENSION (GASEOUS) COMPARISON: No prior studies are available at the time of dictation. TECHNIQUE: Helically acquired images were obtained of the abdomen and pelvis following 100 cc of Omnipaque 300 IV contrast. No oral contrast was administered. AEC is utilized. 2-D reconstructed images are provided. FINDINGS: Cholelithiasis may correlate with gallbladder ultrasound. The upper abdominal solid organs are unremarkable. There is no bowel obstruction or free air. There is no ascites. There is no evidence of aortic aneurysm or dissection. The celiac artery, superior mesenteric artery, and superior mesenteric vein are grossly patent. There is no retroperitoneal adenopathy. There is no appendicitis or diverticulitis. There are no pelvic masses or loculated fluid collections. The uterus and bladder are unremarkable. The lung bases are clear. There are no destructive bone lesions identified. IMPRESSION: Cholelithiasis may consider gallbladder ultrasound. FOLLOW-UP: Follow-up as clinically indicated. Dose reduction techniques were achieved by using automated exposure control and/or adjustment of mA and/or kV according to patient size and/or use of iterative reconstruction technique. Electronically authenticated by: EL LAYNE Date: 2020-11-02 06:00 Normal [facility] Covid-19 PCR (CVDTB)on 10-21 SARS-CoV-2 (COVID-19) RNA CAROLE+probe Ql (Unsp spec) Not detected Normal NOT DETECTED [facility] Comment on above: Result Comment: This test is not yet approved or cleared by the [place] FDA. When there are no FDA-approved or cleared tests available, and other criteria are met, FDA can make tests available under an emergency access mechanism called an Emergency Use Authorization (EUA). The EUA for this test is supported by the Mechanical Estimator of Health and Human Service's (HHS's) declaration that circumstances exist to justify the emergency use of in vitro diagnostics for the detection and/or diagnosis of the virus that causes COVID-19. This EUA will remain in effect (meaning this test can be used) for the duration of the COVID-19 declaration justifying emergency of IVDs, unless it is terminated or revoked by FDA (after which the test may no longer be used). When diagnostic testing is negative, the possibility of a false negative should be considered in the context of a patient's recent exposures and the presence of clinical signs and symptoms consistent with SARS-CoV-2. Performed By: #### F OLALC #### [facility] [address] [place] [id number] Jessica Franz LIPASEon 11-02-2020 Lipase [Catalytic activity/Vol] 115.0 U/L Normal 23.0-300.0 [facility] Comment on above: Performed By: #### C MP, GARETT, LIPA #### [facility] [address], [place] [address] Darrion Cruz PROF 14(COMP METB)on 021 Albumin [Mass/Vol] 3.9 g/dL Normal 3.5-5.0 [facility] Comment on above: Performed By: #### C MP, GARETT, LIPA #### [facility] [address] [place] [address] Darrion Nancy Albumin/Globulin [Mass ratio] 0.8 {ratio} Normal [facility] Comment on above: Performed By: #### C MP, GARETT, LIPA #### [facility] [address] [address] Darrion Nancy ALP [Catalytic activity/Vol] 119 U/L Normal 38-126 [facility] Comment on above: Performed By: #### C MP, GARETT, LIPA #### [facility] [address] [place] [address] Darrion Nancy ALT [Catalytic activity/Vol] 28 U/L Normal 9-52 [facility] Comment on above: Performed By: #### C MP, GARETT, LIPA #### [facility] [address] [place] [address] Darrion Nancy Anion gap [Moles/Vol] 20.4 mmol/L Normal [facility] Comment on above: Performed By: #### C MP, GARETT, LIPA #### [facility] [address] [place] [address] Darrion Nancy AST [Catalytic activity/Vol] 30 U/L Normal 14-36 [facility] Comment on above: Performed By: #### C MP, GARETT, LIPA #### [facility] [address] [place] [address] Darrion Nancy Bilirubin [Mass/Vol] 0.4 mg/dL Normal 0.2-1.3 [facility] Comment on above: Performed By: #### C MP, GARETT, LIPA #### [facility] [address] [place] [address] Darrion Nancy Calcium [Mass/Vol] 9.8 mg/dL Normal 8.4-10.2 [facility] Comment on above: Performed By: #### C MP, GARETT, LIPA #### [facility] [address] [place], [place] [address] Darrion Nancy Chloride [Moles/Vol] 100 mmol/L Normal 98-107 [facility] Comment on above: Performed By: #### C GARETT KUHN LIPA #### [facility] [address] [place] [address] Darrion Nancy CO2 [Moles/Vol] 19.6 mmol/L Critically low 22.0-30.0 [facility] Comment on above: Performed By: #### C GARETT KUHN LIPA #### [facility] [address] [place] [address] Darrion Nancy Creatinine [Mass/Vol] 1.10 mg/dL Critically high 0.52-1.04 [facility] Comment on above: Performed By: #### C GARETT KUHN LIPA #### [facility] [address] [place] [address] Darrion Nancy EGFR-AF QATARI >60 Normal >=60 [facility] Comment on above: Performed By: #### C GARETT KUHN LIPA #### [facility] [address] [place] [address] Darrion Nancy EGFR-NON AF QATARI 55 mL/min/1.73m2 Critically low >=60 [facility] Comment on above: Performed By: #### C GARETT KUHN LIPA #### [facility] [address] [place] [address] Darrion Nancy Globulin (S) [Mass/Vol] 4.9 g/dL Normal [facility] Comment on above: Performed By: #### C GARETT KUHN LIPA #### [facility] [address] [place] [address] Darrion Nancy Glucose [Mass/Vol] 142 mg/dL Critically high 74-106 [facility] Comment on above: Performed By: #### C GARETT KUHN LIPA #### [facility] [address] [place] [address] Darrion Nancy Potassium [Moles/Vol] 4.0 mmol/L Normal 3.4-5.0 [facility] Comment on above: Performed By: #### C GARETT KUHN LIPA #### [facility] [address], [place] [address] Darrion Nancy Protein [Mass/Vol] 8.8 g/dL Critically high 6.1-8.2 [facility] Comment on above: Performed By: #### C HATTIE GARETT, LIPA #### [facility] [address], [place] [address] Darrion Nancy Sodium [Moles/Vol] 136 mmol/L Critically low 137-145 [facility] Comment on above: Performed By: #### C HATTIE, GARETT, LIPA #### [facility] [address], [place] [address] Darrion Nancy Urea nitrogen [Mass/Vol] 17.0 mg/dL Normal 7.0-17.0 [facility] Comment on above: Performed By: #### C HATTIE GARETT, LIPA #### [facility] [address], [place] [address] Darrion Nancy Urea nitrogen/Creatinine [Mass ratio] 15.5 mg/mg Normal [facility] Comment on above: Performed By: #### C HATTIE GARETT, LIPA #### [facility] [address], [place] [address] Darrion Nancy US SINGLE QUAD RT UPPERon US SINGLE QUAD RT UPPER EXAMINATION: US SINGLE QUAD RT UPPER HISTORY: ABDOMINAL DISTENSION (GASEOUS) COMPARISON: No relevant comparison available. TECHNIQUE: Transabdominal evaluation of the right upper quadrant. FINDINGS: LIVER: Normal size and echotexture. Color Doppler demonstrates patent hepatic veins. PORTAL VEIN: Duplex Doppler demonstrates normal hepatopetal flow pattern with flow velocity averaging 36 cm/s. GALLBLADDER: Multiple 10 mm stones within the gallbladder. Areas of gallbladder wall are upper limits of normal. No free fluid. Patient describes tenderness while imaging over the gallbladder. BILIARY: No abnormal dilation or stones. Common bile duct diameter is within normal limits. PANCREASE: No visible mass, abnormal atrophy, or duct dilation. KIDNEY: No hydronephrosis. No visible mass or stones. Size: 11.0 x 5.3 x 5.2 cm IMPRESSION: 1. Cholelithiasis and positive Mcleod's sign without significant wall thickening or free fluid. Early/mild cholecystitis cannot be completely excluded. Consider follow-up. Electronically authenticated by: LEIDY AGUIRRE Date: 2020-11-02 07:45 Normal [facility] XR CHEST 1 Von 11-02-2020 XR CHEST 1 V EXAM: XR CHEST 1 V 11/02/2020 1:11 AM EDT [place]001 CLINICAL STATEMENT: CHEST PAIN, UNSPECIFIED COMPARISON: 09/30/2019 TECHNIQUE: Single AP radiograph of the chest is submitted. FINDINGS: There is left lower lobe atelectasis and/or airspace disease. The cardiac silhouette is normal. The costophrenic recesses are sharp. No pneumothorax. The bony elements are unremarkable. IMPRESSION: Left lower lobe atelectasis and/or airspace disease. FOLLOW-UP: Follow-up as clinically indicated. Electronically authenticated by: EL LAYNE Date: 2020-11-02 02:42 Normal [facility] CORTISOLon 06-19-2020 Cortisol 15.2 ug/dL Normal [facility] Comment on above: Result Comment: Scar isol AM 6.2 - 19.4 Cortisol PM 2.3 - 11.9 Performed By: #### C MP #### [facility] [address] [place] [address] Dr. Jessica Franz CBC AUTO DIFFon 06-02-2020 BASO # 0.1 103/ul Normal 0.0-0.1 [facility] Comment on above: Performed By: #### F OLALC #### [facility] [address] [place] [address] Dr. Jessica Franz Basophils/100 WBC (Bld) 0.7 % Normal 0.2-2.0 [facility] Comment on above: Performed By: #### F OLALC #### [facility] [address] [place] [address] Dr. Jessica Franz EO # 0.1 103/ul Normal 0.0-0.7 [facility] Comment on above: Performed By: #### F OLALC #### [facility] [address] [place] [address] Dr. Jessica Franz Eosinophils/100 WBC (Bld) 0.7 % Critically low 0.9-7.0 [facility] Comment on above: Performed By: #### F OLALC #### [facility] [address] [place] [address] Dr. Jessica Franz Erythrocyte distribution width (RBC) [Ratio] 12.8 % Normal 11.0-15.0 [facility] Comment on above: Performed By: #### F OLALC #### [facility] [address] [place] [address] Dr. Jessica Franz Hematocrit (Bld) [Volume fraction] 42.9 % Normal 36.0-48.0 [facility] Comment on above: Performed By: #### F OLALC #### [facility] [address] [place] [address] Dr. Jessica Franz Hemoglobin (Bld) [Mass/Vol] 14.2 g/dL Normal 12.0-16.0 [facility] Comment on above: Performed By: #### F OLALC #### [facility] [address] [place] [address] Dr. Jessica Franz IG # 0.12 10e3/ul Critically high 0.00-0.03 [facility] Comment on above: Performed By: #### F OLALC #### [facility] [address] [place] [address] Dr. Jessica Franz IG % 0.9 % Critically high 0.0-0.5 [facility] Comment on above: Performed By: #### F OLALC #### [facility] [address] [place] [address] Dr. Jessica Franz LYMPH # 3.0 103/ul Normal 1.2-3.8 [facility] Comment on above: Performed By: #### F OLALC #### [facility] [address] [place] [address] Dr. Jessica Franz Lymphocytes/100 WBC (Bld) 23.5 % Normal 20.5-60.0 [facility] Comment on above: Performed By: #### F OLALC #### [facility] [address] [place] [address] Dr. Jessica Franz MANUAL DIFF REQ NO Normal [facility] Comment on above: Performed By: #### F OLALC #### [facility] [address] [address] [address] Jessica Franz MCH (RBC) [Entitic mass] 29.0 pg Normal 26.7-34.0 [facility] Comment on above: Performed By: #### F OLALC #### [facility] [address] [place] [address] Dr. Jessica Franz MCHC (RBC) [Mass/Vol] 33.1 g/dL Normal 29.9-35.2 [facility] Comment on above: Performed By: #### F OLALC #### [facility] [address] [place] [address] Dr. Jessica Franz MCV (RBC) [Entitic vol] 87.6 fL Normal 81.0-99.0 [facility] Comment on above: Performed By: #### F OLALC #### [facility] [address] [place] [address] Dr. Jessica Franz MONO # 1.0 103/ul Critically high 0.3-0.8 [facility] Comment on above: Performed By: #### F OLALC #### [facility] [address] [place] [address] Dr. Jessica Franz Monocytes/100 WBC (Bld) 7.6 % Normal 1.7-12.0 [facility] Comment on above: Performed By: #### F OLALC #### [facility] [address] [place] [address] Dr. Jessica Franz NEUT # 8.5 103/ul Critically high 1.4-6.5 [facility] Comment on above: Performed By: #### F OLALC #### [facility] [address] [place] [address] Dr. Jessica Franz Neutrophils/100 WBC (Bld) 66.6 % Normal 43.0-75.0 [facility] Comment on above: Performed By: #### F OLALC #### [facility] [address] [place] [address] Dr. Jessica Franz Platelet mean volume (Bld) [Entitic vol] 9.2 fL Critically low 9.5-13.5 [facility] Comment on above: Performed By: #### F OLALC #### [facility] [address], [place] [address] Dr. Jessica Franz PLT 416 103/ul Normal 150-450 [facility] Comment on above: Performed By: #### F OLALC #### [facility] [address] [address] [address] Jessica Franz RBC 4.90 106/ul Normal 4.20-5.40 [facility] Comment on above: Performed By: #### F OLALC #### [facility] [address] [address] [address] Jessica Franz WBC 12.8 103/ul Critically high 4.0-11.0 [facility] Comment on above: Performed By: #### F OLALC #### [facility] [address] [place] [address] Dr. Jessica Franz PROF 14(COMP METB)on 021 Albumin [Mass/Vol] 3.7 g/dL Normal 3.5-5.0 [facility] Comment on above: Performed By: #### C MP #### [facility] [address] [place], [place] [id number] Darrion Nancy Albumin/Globulin [Mass ratio] 0.9 {ratio} Normal [facility] Comment on above: Performed By: #### C MP #### [facility] [address] [place] [address] Darrion Nancy ALP [Catalytic activity/Vol] 86 U/L Normal 38-126 [facility] Comment on above: Performed By: #### C MP #### [facility] [address] [place] [address] Darrion Nancy ALT [Catalytic activity/Vol] 45 U/L Normal 9-52 [facility] Comment on above: Performed By: #### C MP #### [facility] [address] [place], [place] [id number] Darrion Nancy Anion gap [Moles/Vol] 13.5 mmol/L Normal [facility] Comment on above: Performed By: #### C MP #### [facility] [address] [id number] Darrion Nancy AST [Catalytic activity/Vol] 23 U/L Normal 14-36 [facility] Comment on above: Performed By: #### C MP #### [facility] [address] [id number] Darrion Nancy Bilirubin [Mass/Vol] 0.3 mg/dL Normal 0.2-1.3 [facility] Comment on above: Performed By: #### C MP #### [facility] [address] [address] Darrion Nancy Calcium [Mass/Vol] 9.0 mg/dL Normal 8.4-10.2 [facility] Comment on above: Performed By: #### C MP #### [facility] [address] [place] [address] Darrion Nancy Chloride [Moles/Vol] 103 mmol/L Normal 98-107 [facility] Comment on above: Performed By: #### C MP #### [facility] [address] [place] [address] Darrion Nancy CO2 [Moles/Vol] 25.0 mmol/L Normal 22.0-30.0 [facility] Comment on above: Performed By: #### C MP #### [facility] [address] [place] [address] Darrion Nancy Creatinine [Mass/Vol] 0.88 mg/dL Normal 0.52-1.04 [facility] Comment on above: Performed By: #### C MP #### [facility] [address] [address] Darrion Nancy EGFR-AF QATARI >60 Normal >=60 [facility] Comment on above: Performed By: #### C MP #### [facility] [address] [place], [place] [id number] Darrion Nancy EGFR-NON AF QATARI >60 Normal >=60 [facility] Comment on above: Performed By: #### C MP #### [facility] [address] [id number] Darrion Nancy Globulin (S) [Mass/Vol] 4.2 g/dL Normal [facility] Comment on above: Performed By: #### C MP #### [facility] [address], [place] [address] Darrion Nancy Glucose [Mass/Vol] 91 mg/dL Normal 74-106 [facility] Comment on above: Performed By: #### C MP #### [facility] [address], [place] [address] Darrion Nancy Potassium [Moles/Vol] 3.5 mmol/L Normal 3.4-5.0 [facility] Comment on above: Performed By: #### C MP #### [facility] [address], [place] [address] Darrion Nancy Protein [Mass/Vol] 7.9 g/dL Normal 6.1-8.2 [facility] Comment on above: Performed By: #### C MP #### [facility] [address] [id number] Darrion Nancy Sodium [Moles/Vol] 138 mmol/L Normal 137-145 [facility] Comment on above: Performed By: #### C MP #### [facility] [address], [place] [address] Darrion Nancy Urea nitrogen [Mass/Vol] 10.0 mg/dL Normal 7.0-17.0 [facility] Comment on above: Performed By: #### C MP #### [facility] [address], [place] [address] Darrion Nancy Urea nitrogen/Creatinine [Mass ratio] 11.4 mg/mg Normal [facility] Comment on above: Performed By: #### C MP #### [facility] [address], [place] [address] Darrion Nancy XR ABD FLAT_UPon 06-02-2020 XR ABD FLAT_UP EXAMINATION: XR ABD FLAT_UP HISTORY: Abdominal distension, gaseous COMPARISON: No relevant comparison available. FINDINGS: BOWEL GAS PATTERN: Non-obstructed. FREE AIR: None. CALCIFICATIONS: None significant. BONES: No fracture or visible bone lesion. OTHER: Negative. IMPRESSION: Nonobstructive bowel gas pattern Electronically authenticated by: DONNA HYMAN Date: 2020-06-02 15:47 Normal [facility] Vital Signs Date Time Vital Sign Value Performing Clinician Facility 12-01-2023 10:14-0400 Blood Pressure Location Lorraine Benavides [facility] 12-01-2023 10:14-0400 Body temperature 98.6 [degF] Lorraine Benavides [facility] 12-01-2023 10:14-0400 Diastolic blood pressure 80 mm[Hg] Lorraine Jonnajacinta [facility] 12-01-2023 10:14-0400 Heart rate 78 /min Lorraine Jonnajacinta [facility] 12-01-2023 10:14-0400 SaO2% (BldA) [Mass fraction] 99 % Lorraine Wallisradhajacinta [facility] 12-01-2023 10:14-0400 Systolic blood pressure 120 mm[Hg] Lorraine Benavides [facility] 11-21-2023 17:39-0400 Blood Pressure Location Riki Allen [facility] 11-21-2023 17:39-0400 Body temperature 98.6 [degF] Riki Villa [facility] 11-21-2023 17:39-0400 Diastolic blood pressure 76 mm[Hg] Riki Villa [facility] 11-21-2023 17:39-0400 Heart rate 76 /min Riki Villa [facility] 11-21-2023 17:39-0400 SaO2% (BldA) [Mass fraction] 98 % Riki Villa [facility] 11-21-2023 17:39-0400 Systolic blood pressure 118 mm[Hg] Riki Villa [facility] 12-15-2022 15:00-0400 Blood Pressure Location Letitia Morrissey [facility] 12-15-2022 15:00-0400 Body temperature 98.06 [degF] Letitia Morrissey [facility] 12-15-2022 15:00-0400 Diastolic blood pressure 83 mm[Hg] Letitia Morrissey [facility] 12-15-2022 15:00-0400 Heart rate 75 /min Letitia Morrissey [facility] 12-15-2022 15:00-0400 Mean blood pressure 97 mm[Hg] Letitia Morrissey [facility] 12-15-2022 15:00-0400 Respiratory rate 16 /min Letitia Morrissey [facility] 12-15-2022 15:00-0400 SaO2% (BldA) [Mass fraction] 96 % Letitia Morrissey [facility] 12-15-2022 15:00-0400 Systolic blood pressure 126 mm[Hg] Letitia Morrissey [facility] Encounters Encounter Date Encounter Type Care Provider Facility Start: 12-07-2023 ambulatory BEET WORKER Melissa Newman ity:FT JACIEL Abdi Start: 12-01-2023 End: 12-01-2023 ambulatory Lorraine Benavides Facility:[facility] Start: 12-01-2023 End: 12-01-2023 Patient encounter procedure Lorraine Benavides [facility] Start: 11-21-2023 End: 11-21-2023 ambulatory Riki Guerrapsey Facility:[facility] Start: 11-21-2023 End: 11-21-2023 Patient encounter procedure Riki StacyCaryl Allen [facility] Start: 11-10-2023 End: 11-10-2023 Lab Drop off Melissa L Debbie [facility] Start: 11-10-2023 End: 11-10-2023 ambulatory BEET WORKER Melissa L Debbie Facility:[facility] [place] Start: 09-08-2023 ambulatory BEET WORKER Melissa L Debbie Facil ity: [facility] Start: 06-14-2023 End: 06-14-2023 ambulatory BEET WORKER Melissa L Debbie Facility:[facility] [place] Start: 03-22-2023 End: 03-22-2023 Lab Drop off Melissa L Debbie [facility] Start: 03-22-2023 End: 03-22-2023 ambulatory BEET WORKER Melissa L Debbie Facility:[facility] Start: 03-16-2023 End: 03-16-2023 ambulatory BEET WORKER Melissa L Debbie Facility:[facility] Start: 03-15-2023 End: 03-15-2023 ambulatory BEET WORKER Melissa L Debbie Facility: [facility] Start: 02-15-2023 End: 02-15-2023 ambulatory BEET WORKER Melissa L Debbie Facility: [facility] [place] Start: 02-15-2023 End: 02-16-2023 Pre-admission assessment Jeremy Preciado [facility] Start: 01-18-2023 End: 01-18-2023 ambulatory BEET WORKER Melissa L Debbie Facility:[facility] [place] Start: 12-20-2022 End: 03-20-2023 ambulatory BEET WORKER Melissa L Debbie Facility:[facility] Start: 12-20-2022 End: 03-20-2023 Shawnee Young [facility] Start: 12-15-2022 End: 12-15-2022 ambulatory Letitia Morrissey Facility:[facility] Start: 12-15-2022 End: 12-15-2022 Patient encounter procedure Letitia Morrissey [facility] Start: 12-09-2022 End: 12-09-2022 ambulatory BEET WORKER Melissa L Debbie Facility:[facility] Start: 12-01-2022 End: 12-01-2022 ambulatory Antonio Giles Facility:[facility] Start: 11-28-2022 End: 11-28-2022 ambulatory PA-C DARWIN DEL CID Facility:[facility] Start: 11-28-2022 End: 11-28-2022 ambulatory PA-C DARWIN DEL CID Facility: [facility] Start: 11-25-2022 End: 11-25-2022 ambulatory Letitia Morrissey Facility:[facility] Start: 11-24-2022 End: 11-24-2022 ambulatory Letitia Morrissey Facility:[facility] Start: 11-11-2022 End: 11-11-2022 ambulatory BEET WORKER Melissa L Debbie Facility:[facility] Start: 08-26-2022 End: 08-26-2022 Lab Drop off Melissa L Debbie [facility] Start: 08-19-2022 End: 08-19-2022 Lab Drop off Melissa L Debibe [facility] Start: 02-18-2021 End: 02-19-[address] RAKESH CLINE Facility:[facility] Start: 01-30-2021 End: 01-31-[address] RAKESH CLINE Facility:[facility] Start: 12-26-2020 End: 12-27-[address] RAKESH CLINE Facility:[facility] Start: 12-12-2020 End: 10-24-[address] RAKESH CLINE Facility:[facility] Start: 11-30-2020 End: 12-01-[address] RAKESH CLINE Facility:[facility] Start: 11-02-2020 End: 11-04-[address] RAKESH CLINE Facility:[facility] Start: 06-18-2020 End: 06-19-[address] RAKESH CLINE Facility:[facility] Start: 06-02-2020 End: 06-03-[address] RAKESH CLINE Facility:[facility] Procedures Date Procedure Procedure Detail Performing Clinician Start: 02-21-2020 Cholecystectomy and exploration of bile duct Melissa Debbie Knee region structur e (body structure) Letitia Morrissey Comment on above: surgery Immunizations Immunization Date Immunization Notes Care Provider Miryam escobedo NEGATED: Highlighted row has not occurred!12-01-2022 influenza virus vaccine, unspecified formulation Letitia Morrissey [facility] [place] NEGATED: Highlighted row has not occurred!11-28-2022 influenza virus vaccine, unspecified formulation Letitia Morrissey [facility] NEGATED: Highlighted row has not occurred!11-28-2022 SARS-CoV-2 mRNA (tozinameran 5y-11y) vaccine Letitia Morrissey [facility] Payers Date Payer Category Payer Unknown [id number] 2022 Unknown 2022 Unknown [id number] 1980 Unknown [id number] 0.1.878870.3.579.2.593 1980 Unknown [id number] 2.16.84 0.1.773494.3.579.2.593 1980 Unknown [id number] 2.16.84 0.1.664032.3.579.2.593 1980 Unknown [id number] 2.16.84 0.1.369905.3.579.2.593 1980 Unknown [id number] 2.16.84 0.1.921828.3.579.2.593 1980 Unknown [id number] 2.16.84 0.1.414103.3.579.2.593 1980 Unknown [id number] 2.16.84 0.1.242732.3.579.2.593 1980 Unknown [id number] 2.16.84 0.1.824614.3.579.2.593 1980 Unknown [id number] 2.16.8 40.1.889663.3.579.2.727 1980 Unknown [id number] 2.16.8 40.1.927522.3.579.2.727 1980 Unknown [id number] 2.16.8 40.1.630147.3.579.2.727 1980 Unknown [id number] 2.16.8 40.1.885765.3.579.2.727 1980 Unknown [id number] 2.16.8 40.1.745048.3.579.2.727 1980 Unknown [id number] 2.16.8 40.1.310555.3.579.2.727 1980 Unknown [id number] 2.16.8 40.1.280436.3.579.2.727 1980 Unknown [id number] 2.16.8 40.1.085623.3.579.2.727 1980 Unknown [id number] 2.16.8 40.1.361755.3.579.2.727 1980 Unknown [id number] 2.16.8 40.1.167810.3.579.2.727 1980 Unknown [id number] 2.16.8 40.1.583680.3.579.2.727 1980 Unknown [id number] 2.16.8 40.1.133146.3.579.2.727 1980 Unknown [id number] 2.16.8 40.1.634470.3.579.2.727 1980 Unknown [id number] 2.16.8 40.1.340256.3.579.2.727 1980 Unknown [id number] 2.16.8 40.1.278865.3.579.2.727 1980 Unknown [id number] 2.16.8 40.1.163051.3.579.2.727 1980 Unknown [id number] 2.16.8 40.1.688524.3.579.2.727 1980 Unknown [id number] 2.16.8 40.1.963028.3.579.2.727 1980 Unknown [id number] 2.16.8 40.1.681699.3.579.2.727 1980 Unknown [id number] 2.16.8 40.1.723862.3.579.2.727 1980 Unknown [id number] 2.16.8 40.1.328937.3.579.2.727 1980 Unknown [id number] 2.16.8 40.1.919613.3.579.2.727 1980 Unknown [id number] 2.16.8 40.1.685278.3.579.2.727 1959 Unknown [id number] Social History Date Type Detail Facility Start: 08-19-2022 End: 11-10-2023 Tobacco smoking status Never smoked tobacco (finding) [facility] Tobacco smoking status Never [facility] Sex Assigned At Female [facility] Medical Equipment Procedure Code Equipment Code Equipment Origin al Text Equipment Identifier Dates blood glucose testing strips, See Instructions, 100 EA, 1, test blood sugar 3 times per day, [facility], Supply, 160, cm, 10/21/22 13:55:00 EDT, Height/Length Dosing, 73.7, kg, 10/21/22 13:55:00 EDT, Weight Dosing Start: 10-21-2022 lancets, See Instructions, 100 EA, 1, check blood sugar 3 times per day, [facility], Supply, 160, cm, 10/21/22 13:55:00 EDT, Height/Length Dosing, 73.7, kg, 10/21/22 13:55:00 EDT, Weight Dosing Start: 10-21-2022 blood glucose testing strips, See Instructions, 100 EA, 1, test blood sugar 3 times per day, [facility], Supply, 160, cm, 10/21/22 13:55:00 EDT, Height/Length Dosing, 73.7, kg, 10/21/22 13:55:00 EDT, Weight Dosing Start: 10-21-2022 lancets, See Instructions, 100 EA, 1, check blood sugar 3 times per day, [facility], Supply, 160, cm, 10/21/22 13:55:00 EDT, Height/Length Dosing, 73.7, kg, 10/21/22 13:55:00 EDT, Weight Dosing Start: 10-21-2022 blood glucose testing strips, See Instructions, 100 EA, 1, test blood sugar 3 times per day, [facility], Supply, 160, cm, 10/21/22 13:55:00 EDT, Height/Length Dosing, 73.7, kg, 10/21/22 13:55:00 EDT, Weight Dosing Start: 10-21-2022 lancets, See Instructions, 100 EA, 1, check blood sugar 3 times per day, [facility], Supply, 160, cm, 10/21/22 13:55:00 EDT, Height/Length Dosing, 73.7, kg, 10/21/22 13:55:00 EDT, Weight Dosing Start: 10-21-2022 blood glucose testing strips, See Instructions, 100 EA, 1, test blood sugar 3 times per day, [facility], Supply, 160, cm, 10/21/22 13:55:00 EDT, Height/Length Dosing, 73.7, kg, 10/21/22 13:55:00 EDT, Weight Dosing Start: 09-01-2023 lancets, See Instructions, 100 EA, 1, check blood sugar 3 times per day, [facility], Supply, 160, cm, 10/21/22 13:55:00 EDT, Height/Length Dosing, 73.7, kg, 10/21/22 13:55:00 EDT, Weight Dosing Start: 10-21-2022 blood glucose testing strips, See Instructions, 100 EA, 1, test blood sugar 3 times per day, [facility], Supply, 160, cm, 10/21/22 13:55:00 EDT, Height/Length Dosing, 73.7, kg, 10/21/22 13:55:00 EDT, Weight Dosing Start: 10-21-2022 lancets, See Instructions, 100 EA, 1, check blood sugar 3 times per day, [facility], Supply, 160, cm, 10/21/22 13:55:00 EDT, Height/Length Dosing, 73.7, kg, 10/21/22 13:55:00 EDT, Weight Dosing Start: 10-21-2022 blood glucose testing strips, See Instructions, 100 EA, 1, test blood sugar 3 times per day, [facility], Supply, 160, cm, 10/21/22 13:55:00 EDT, Height/Length Dosing, 73.7, kg, 10/21/22 13:55:00 EDT, Weight Dosing Start: 10-21-2022 lancets, See Instructions, 100 EA, 1, check blood sugar 3 times per day, [facility], Supply, 160, cm, 10/21/22 13:55:00 EDT, Height/Length Dosing, 73.7, kg, 10/21/22 13:55:00 EDT, Weight Dosing Start: 10-21-2022 blood glucose testing strips, See Instructions, 100 EA, 1, test blood sugar 3 times per day, [facility], Supply, 160, cm, 10/21/22 13:55:00 EDT, Height/Length Dosing, 73.7, kg, 10/21/22 13:55:00 EDT, Weight Dosing Start: 10-21-2022 lancets, See Instructions, 100 EA, 1, check blood sugar 3 times per day, [facility], Supply, 160, cm, 10/21/22 13:55:00 EDT, Height/Length Dosing, 73.7, kg, 10/21/22 13:55:00 EDT, Weight Dosing Start: 10-21-2022 blood glucose testing strips, See Instructions, 100 EA, 1, test blood sugar 3 times per day, [facility], Supply, 160, cm, 10/21/22 13:55:00 EDT, Height/Length Dosing, 73.7, kg, 10/21/22 13:55:00 EDT, Weight Dosing Start: 10-21-2022 lancets, See Instructions, 100 EA, 1, check blood sugar 3 times per day, [facility], Supply, 160, cm, 10/21/22 13:55:00 EDT, Height/Length Dosing, 73.7, kg, 10/21/22 13:55:00 EDT, Weight Dosing Start: 10-21-2022 Functional Status Date Assessment Result Facility 12-01-2023 Functional Status N/A [facility] 11-21-2023 Functional Status N/A [facility] Clinical Notes 11-02-2020 to 12-01-2023 RadiologyRadiologyLaboratoryRadiologyLaboratoryRadiologyRadiologyRadiology Note Date & Type Note Facility 12-01-2023 Hospital Discharge instructions Follow Up Care 12/01/2023 08:52:36 With:Melissa Selby FAM, MED Address:Unknown When: Unknown [facility] 11-22-2023 Note Patient Education ENT Cough, Adult A cough helps to clear your throat and lungs. It may be a sign of an illness or another condition. A short-term (acute) cough may last 2?3 weeks. A long-term (chronic) cough may last 8 or more weeks. Many things can cause a cough. They include: ? Illnesses such as: ? An infection in your throat or lungs. ? Asthma or other heart or lung problems. ? Gastroesophageal reflux. This is when acid comes back up from your stomach. ? Breathing in things that bother (irritate) your lungs. ? Allergies. ? Postnasal drip. This is when mucus runs down the back of your throat. ? Smoking. ? Some medicines. Follow these instructions at home: Medicines ? Take mgmx-ohf-wotbvrn and prescription medicines only as told by your doctor. ? Talk with your doctor before you take cough medicine (cough suppressants). Eating and drinking ? Do not drink alcohol. ? Do not drink caffeine. ? Drink enough fluid to keep your pee (urine) pale yellow. Lifestyle ? Stay away from cigarette smoke. ? Do not smoke or use any products that contain nicotine or tobacco. If you need help quitting, ask your doctor. ? Stay away from things that make you cough. These may include perfume, candles, cleaning products, or campfire smoke. General instructions ? Watch for any changes to your cough. Tell your doctor about them. ? Always cover your mouth when you cough. ? If the air is dry in your home, use a cool mist vaporizer or humidifier. ? If your cough is worse at night, try using extra pillows to raise your head up higher while you sleep. ? Rest as needed. Contact a doctor if: ? You have new symptoms. ? Your symptoms get worse. ? You cough up pus. ? You have a fever that does not go away. ? Your cough does not get better after 2?3 weeks. ? Cough medicine does not help, and you are not sleeping well. ? You have pain that gets worse or is not helped with medicine. ? You are losing weight and do not know why. ? You have night sweats. Get help right away if: ? You cough up blood. ? You have trouble breathing. ? Your heart is beating very fast. These symptoms may be an emergency. Get help right away. Call 911. ? Do not wait to see if the symptoms will go away. ? Do not drive yourself to the hospital. This information is not intended to replace advice given to you by your health care provider. Make sure you discuss any questions you have with your health care provider. Document Revised: 10/07/2022 Document Reviewed: 10/07/2022 [facility] Patient Education ? 2023 [employer] [facility] 11-24-2022 Hospital Discharge instructions Follow Up Care 11/24/2022 14:05:20 With:Jeremy Preciado Address: [facility] [place] [address]- [phone] Fax Business (1) When: Unknown Comments:f/u with me only 2 months. cbc cmp, check spep, sflc, simmunofixation, hiv, quant immunoglobulins, carol, esr, rf, crp. hepatitis profile. Also check tissue transglutaminase antibody. two weeks prior to f/u. [facility] 11-02-2020 Note OPERATIVE NOTE OPERATION DATE: 11-03-20 ANESTHETIC:General, 0.50% Marcaine for local. SHEET TAILER:MARLEE Vaughan. PREOPERATIVE DIAGNOSIS:Right upper quadrant abdominal pain, cholelithiasis, cholecystitis. POSTOPERATIVE DIAGNOSIS:Acute on chronic cholecystitis, cholelithiasis. PROCEDURE NAME:Laparoscopic cholecystectomy. ESTIMATED BLOOD LOSS: Minimal. SPECIMENS:Gallbladder. DISPOSITION: The patient was extubated in the OR and taken to the PACU in fair condition. PROCEDURE: The patient was brought to the OR and placed supine on the OR table. After establishment of general endotracheal anesthesia the patient's abdomen was prepped and draped in a sterile fashion. An intraumbilical incision was made, the incision was carried down through the skin using sharp dissection and through the soft tissue using electrocautery Bovie until reaching the anterior rectus fascia. The fascia was scored in the midline with electrocautery Bovie, grasped with Analy clamps and elevated. #0 Vicryl stay sutures were placed. Using blunt dissection the posterior sheath was opened. A 12 mm Андрей port with a balloon was placed into the abdominal cavity. The balloon was insufflated with air, the abdominal cavity was insufflated with CO2 gas. Under direct laparoscopic visualization an 11 mm port was placed to the right of the midline in the epigastric area and two 5 mm ports were placed in a similar fashion, one in the right anterior axillary line and one in the right midclavicular ling. The OR table was then placed in reverse Trendelenburg position and tilted to the left. The gallbladder was acutely inflamed and was grasped with a grasper and elevated in a cephalad fashion. A second grasper was used to retract the gallbladder laterally due to the tenseness of the gallbladder in order to grasp this, it was aspirated using the electrocautery spatula. The cystic duct and artery were visualized, they were further dissected free with a curved dissector. Surgical clips were placed both distally and proximally on each of the structures and transected in succession using laparoscopic scissors. The gallbladder was removed from the liver bed using electrocautery spatula. It was placed in the EndoCatch bag and removed via the infraumbilical port. The port was replaced and the abdomen re insufflated with CO2 gas. The liver was elevated, the gallbladder fossa was raw, it was cauterized using the electrocautery spatula and Eliana powder was placed in the gallbladder fossa. The epigastric ports were removed, there was no evidence of bleeding. The infraumbilical port was removed and the fascia was reapproximated using the previously placed stay sutures. All the wounds were anesthetized with 0.50% Marcaine, the skin was reapproximated using 4-0 Monocryl in a subcuticular fashion. The incisions were cleaned with normal saline and dried. TinCoBen was placed on both sides of the incisions and 1/2 inch Steri-Strips were placed along with dry sterile dressings. The patient was extubated in the OR and taken to the PACU in fair condition. All instruments and sponge counts were correct at the end of the case. [facility] Signed and Approved by: DR MARIMAR ROSA . 11/04/2020 20:44:00 [facility] 11-02-2020 Note DISCHARGE SUMMARY Discharge Date: 11-04-20 PAST MEDICAL HISTORY / SIGNIFICANT PHYSICAL EXAM FINDINGS ON ADMISSION: See admitting H AND P. LABS ON ADMISSION: See labs. HOSPITAL COURSE: The patient was admitted started on IV fluids and IV antibiotics. She was acidotic on admission and she did have elevated liver function test. In addition she did have a leucocytosis associated with this. Overnight her blood work did improve, her acidosis resolved and she was taken to surgery. She had a laparoscopic cholecystectomy which she tolerated well. Postop she was slow to move, slow to eat, she was kept overnight by morning, she was able to get up on her own, take liquids as well as some food and it was felt safe to discharge to her to home. DISCHARGE DIAGNOSIS: 1. Acute cholecystitis. 2. Acute cholelithiasis. 3. Acidosis. 4. Dehydration. 5. Leucocytosis. 6. Metabolic syndrome. 7. History of vitamin D deficiency. DISCHARGE PLAN: FOLLOWUP: She will see Dr. Rosa on the . She will followup with me in three weeks. [facility] Signed and Approved by: DR RAKESH CLINE . 11/21/2020 13:36:00 [facility] Evaluation + Plan note Future Appointments Appointment Date:08/26/2022 03:00:00 PM Scheduled Provider:Melissa Selby Location:[facility] Appointment Type:FM Open [facility] Evaluation + Plan note Future Appointments Appointment Date:09/23/2022 02:40:00 PM Scheduled Provider:Melissa Selby Location:[facility] Appointment Type: Open Diagnostic Tests PendingPAP w/ HPV and Genotype rflx 08/26/22 Future Scheduled TestsUS Pelvis Non-OB Complete 08/26/22MA Mamm Screen w/CAD if perf and 3D Sly 08/26/22 [facility] Evaluation + Plan note Future Appointments Appointment Date:09/23/2022 02:40:00 PM Scheduled Provider:Melissa Selby Location:[facility] Appointment Type: Open Diagnostic Tests PendingEBV Antibody Profile 08/26/22 Future Scheduled TestsUS Pelvis Non-OB Complete 08/26/22MA Mamm Screen w/CAD if perf and 3D Sly 08/26/22 [facility] Evaluation + Plan note Future Appointments Appointment Date:01/03/2023 02:20:00 PM Scheduled Provider:Melissa Selby Location:[facility] Appointment Type:FM Open Appointment Date:02/15/2023 02:15:00 PM Scheduled Provider:Jeremy Preciado DO Location:[facility].ONCOLOGY Appointment Type:ONC Office Visit 30 (FT) Future Scheduled TestsHep B Core Ab, IgM 02/01/23Sedimentation Rate Automated 02/01/23Lab Miscellaneous-LC 02/01/23Lab Miscellaneous-LC 02/01/23Rheumatoid Factor Quantitative 02/01/23ANA w/Reflex if POS 02/01/23IFE and PE, Serum 02/01/23Immunoglobs. A/E/G/M 02/01/23Acute Hepatitis A B C Panel 02/01/23HCV Antibody RFX to Quant PCR 02/01/23Free K+L Lt Chains,Qn,S 02/01/23HIV Screen 4th Generation wRfx 02/01/23CBC w/ Auto Diff 02/01/23Comprehensive Metabolic Panel 02/01/23C-Reactive Protein 02/01/23Hepatitis A Antibody IgM 02/01/23Hepatitis B Surface Antibody 02/01/23Hepatitis B Surface Antigen 02/01/23US Pelvis Non-OB Complete 08/26/22MA Mamm Screen w/CAD if perf and 3D Sly 08/26/22 [facility] Evaluation + Plan note Future Appointments Appointment Date:03/15/2023 04:40:00 PM Scheduled Provider:Melissa Selby Location:[facility] Appointment Type: Open Future Scheduled TestsHep B Core Ab, IgM 02/01/23Sedimentation Rate Automated 02/01/23Lab Miscellaneous-LC 02/01/23Lab Miscellaneous-LC 02/01/23Rheumatoid Factor Quantitative 02/01/23ANA w/Reflex if POS 02/01/23IFE and PE, Serum 02/01/23Immunoglobs. A/E/G/M 02/01/23Acute Hepatitis A B C Panel 02/01/23HCV Antibody RFX to Quant PCR 02/01/23Free K+L Lt Chains,Qn,S 02/01/23HIV Screen 4th Generation wRfx 02/01/23CBC w/ Auto Diff 02/01/23Comprehensive Metabolic Panel 02/01/23C-Reactive Protein 02/01/23Hepatitis A Antibody IgM 02/01/23Hepatitis B Surface Antibody 02/01/23Hepatitis B Surface Antigen 02/01/23US Pelvis Non-OB Complete 08/26/22MA Mamm Screen w/CAD if perf and 3D Sly 08/26/22 [facility] Evaluation + Plan note Future Appointments Appointment Date:03/22/2023 05:40:00 PM Scheduled Provider:Melissa Selby Location:[facility] Appointment Type: Open Future Scheduled TestsUS Pelvis Non-OB Complete 08/26/22MA Mamm Screen w/CAD if perf and 3D Sly 08/26/22 [facility] Evaluation + Plan note Future Appointments Appointment Date:06/14/2023 05:00:00 PM Scheduled Provider:Melissa Selby Location:[facility] Appointment Type: Open Future Scheduled TestsUS Pelvis Non-OB Complete 08/26/22MA Mamm Screen w/CAD if perf and 3D Sly 08/26/22 [facility] Evaluation + Plan note Future Appointments Appointment Date:12/07/2023 03:00:00 PM Scheduled Provider:Melissa Selby Location:[facility] Appointment Type: Open [facility] Hospital course Narrative No data available for this section [facility] Hospital Discharge instructions No data available for this section [facility] Progress note No data available for this section [facility] Summary Purpose Family History No Family History Records Found No data available for this section No data available for this section No data available for this section No data available for this section No data available for this section No Family History Records FoundNo Family History Records FoundNo Family History Records FoundNo Family History Records FoundNo Family History Records FoundNo Family History Records Found No data available for this section No data available for this section No data available for this section No Family History Records Found Advance Directives No Advanced Directives Records FoundNo Advanced Directives Records FoundNo Advanced Directives Records FoundNo Advanced Directives Records FoundNo Advanced Directives Records FoundNo Advanced Directives Records FoundNo Advanced Directives Records FoundNo Advanced Directives Records Found Additional Source Comments INFORMATION SOURCE (unrecogn ized section and content) DATE CREATED AUTHOR [facility]/05/2021 [facility] DATE CREATED AUTHOR AUTHOR'S ORGANIZ ATION 11/12/2023 [facility] DATE CREATED AUTHOR AUTHOR'S ORGANIZ ATION 11/13/2023 [facility] DATE CREATED AUTHOR AUTHOR'S ORGANIZ ATION 12/05/2023 [facility] Patient Care team informatio n (unrecognized section and content) Personnel Name: Melissa Selby Address: Address: [address] [place] [address]- Personnel Name: Melissa Selby Address: Address: [address] [place] [address]- Personnel Name: Debbie BEET WORKER, Melissa L Address: Address: [address] [place] [address]- Personnel Name: Melissa Selby Address: Address: [address] [place] [id number]- Personnel Name: Melissa Selby Address: Address: [address] [place], [place] [id number]- Personnel Name: Melissa Selby L Address: Address: [address] [place] [address]- Personnel Name: Melissa Selby L Address: Address: [address] [place] [address]- Personnel Name: Melissa Selby L Address: Address: [address] [place] [address]- Personnel Name: Melissa Selby L Address: Address: [address] [place] [address]- Personnel Name: Melissa Selby L Address: Address: [address] [place] [address]- Personnel Name: Melissa Selby Address: Address: [address] [place] [address]- FOR RECORDS PERTAINING TO PATIENTS WHO ARE OR HAVE BEEN ENROLLED IN A CHEMICAL DEPENDENCY/SUBSTANCEABUSE PROGRAM, SOME INFORMATION MAY BE OMITTED. This clinical summary was aggregated from multiple sources. Caution should be exercised in using it in the provision of clinical care. This summary normalizes information from multiple sources, and as a consequence, information in this document may materially change the coding, format and clinical context of patient data. In addition, data may be omitted in some cases. CLINICAL DECISIONS SHOULD BE BASED ON THE PRIMARY CLINICAL RECORDS. [facility] [employer] [facility]. provides no warranty or guarantee of the accuracy or completeness of information in this document.
== END 2023-12-09 10:29 | disposition home or self-care (01) ==
PROVIDERS: PCP Nurse Practitioner; Visit Provider Nurse Practitioner
DX: R05.9 Cough, unspecified (principal); R06.02 Shortness of breath
CPT/HCPCS: 71046